=== PATIENT | female | born 1945 | race Caucasian/White ===

== ENCOUNTER 2019-04-08 13:16 | Outpatient (RCR) | payer MEDICARE, SELFPAY ==
[2019-01-25 11:08] LABS: Hematocrit 35.2 % (37.0-47.0); Hemoglobin 11.8 g/dL (12.0-15.0); Mean Corpuscular HGB Conc 33.5 g/dl (32-36); Mean Corpuscular Hemoglobin 35.6 pg (26-34); Mean Corpuscular Volume 106.3 fl (80-100); Mean Platelet Volume 9.9 fl (7.4-10.4); Platelet Count Result 59 k/mm3 (150-375); Red Blood Count 3.31 M/mm3 (4.2-5.4); Red Cell Distribution Width 14.8 % (11.5-14.5); White Blood Count 2.9 K/mm3 (4.5-10.0)
[2019-01-25 11:26] LABS: Alanine Aminotransferase 16 U/L (4-35); Albumin Level 4.4 g/dL (3.5-5.1); Alkaline Phosphatase 86 U/L (38-126); Aspartate Amino Transferase 24 U/L (14-36); Bilirubin,Total 0.4 mg/dL (0.2-1.3); Blood Urea Nitrogen 17 mg/dL (7-17); Calcium 9.5 mg/dL (8.4-10.2); Carbon Dioxide 27 mmol/L (22-30); Chloride 103 mmol/L (98-107); Estimated Glomerular Filt Rate > 60; Glucose 83 mg/dL (65-105); Lactate Dehydrogenase 516 U/L (313-618); Potassium 4.2 mmol/L (3.4-5.0); Sodium 138 mmol/L (137-145)
[2019-04-08 13:51] LABS: Basophils Percent Auto 0.5 % (0.2-1.2); Eosinophils Percent Auto 0.5 % (0-4.4); Hematocrit 31.8 % (37.0-47.0); Hemoglobin 10.6 g/dL (12.0-15.0); Immature Granulocyte Absolute 0.01 K/mm3 (0.00-0.031); Immature Granulocyte Percent A 0.3 % (0-0.5); Lymphocytes Absolute Auto 0.92 K/mm3 (0.9-3.2); Lymphocytes Percent Auto 23.1 % (18.3-44.2); Mean Corpuscular HGB Conc 33.3 g/dl (32-36); Mean Corpuscular Hemoglobin 34.6 pg (26-34); Mean Corpuscular Volume 103.9 fl (80-100); Mean Platelet Volume 10.2 fl (7.4-10.4); Monocytes Absolute Auto 0.3 K/mm3 (0.1-0.6); Monocytes Percent Auto 8.3 % (2.6-8.5); Neutrophils Absolute Auto 2.7 K/mm3 (1.3-6.7); Neutrophils Percent Auto 67.3 % (45.5-73.1); Platelet Count Result 70 k/mm3 (150-375); Red Blood Count 3.06 M/mm3 (4.2-5.4); Red Cell Distribution Width 14.6 % (11.5-14.5)
[2019-04-08 14:02] LABS: Alanine Aminotransferase 14 U/L (4-35); Albumin Level 4.2 g/dL (3.5-5.1); Alkaline Phosphatase 83 U/L (38-126); Aspartate Amino Transferase 20 U/L (14-36); Bilirubin,Total 0.4 mg/dL (0.2-1.3); Blood Urea Nitrogen 16 mg/dL (7-17); Calcium 9.5 mg/dL (8.4-10.2); Carbon Dioxide 30 mmol/L (22-30); Chloride 96 mmol/L (98-107); Estimated Glomerular Filt Rate > 60; Glucose 75 mg/dL (65-105); Lactate Dehydrogenase 442 U/L (313-618); Potassium 3.8 mmol/L (3.4-5.0); Sodium 133 mmol/L (137-145)
== END 2019-04-25 23:59 | disposition home or self-care (01) ==
LOC: ANHLAB 13:16
PROVIDERS: PCP Family Medicine
DX: C92.10 Chronic myeloid leukemia, BCR/ABL-positive, not having achieved remission (principal)
CPT/HCPCS: 36415; 80053; 83615; 85025; 85027

== ENCOUNTER 2019-10-01 10:26 | Outpatient (CLI) | payer MEDICARE, SELFPAY ==
--- NOTE | ~2019-10-01 | US_ITS ---
EXAMINATION: US carotid duplex BI DATE: 10/01/2019 11:26 INDICATION: Carotid bruit TECHNIQUE: Grayscale, color Doppler, and pulsed Doppler images of the cervical carotid arteries were obtained. The degree of vessel stenosis is placed in one of the following categories: normal, <50%, 5 0-69%, >=70% but less than near-occlusion, near-occlusion, or total occlusion. Note that percent sten osis relative to normal distal artery lumen diameter is indirectly measured from velocity measurement s as described by Chaparro, et al. Radiology 2003; 229:340-346. Notes: Normal: Peak systolic velocity <125 centimeters/sec and no plaque <50%. Peak systolic velocity <125 ( EDV <40; ICA/CCA PSV ratio <2.0; used these factors only a tandem lesions or low cardiac output or co ntralateral disease) 50-69 %: PSV 125-230 (EDV 40-100; ratio 2-4) >= 70% but less than near occlusion: PSV greater than 230 (EDV > 100; ratio> 4.0) Near Occlusion: PSV that is variable; markedly narrowed lumen Occlusion: Absent flow on color/spectral Doppler and no lumen on dixon scale. COMPARISON: None. FINDINGS: RIGHT: The right common carotid artery (CCA) peak systolic velocity (PSV) is 106 cm/s. The right internal ca rotid artery (ICA) PSV is 138 cm/s. The right ICA end-diastolic velocity (EDV) is 33 cm/s. The right ICA/CCA PSV ratio is 1.3. The external carotid artery (ECA) PSV is 68 cm/s. There is antegrade flow i n the right vertebral artery. LEFT: The left CCA PSV is 97 cm/s. The left ICA PSV is 132 cm/s. The left ICA EDV is 41 cm/s. The left ICA/ CCA PSV ratio is 1.4. The ECA PSV is 65 cm/s. There is antegrade flow in the left vertebral artery. IMPRESSION: 1. 50-69% stenosis in the right internal carotid artery by sonographic criteria. 2. 50-69% stenosis in the left internal carotid artery by sonographic criteria. Reviewed, dictated and finalized at location B. IMPRESSION: 1. 50-69% stenosis in the right internal carotid artery by sonographic criteria . 2. 50-69% stenosis in the left internal carotid artery by sonographic criteria.
[2019-10-01 12:05] LABS: Basophils Percent Auto 0.5 % (0.2-1.2); Eosinophils Absolute Auto 0.1 K/mm3 (0-0.3); Hematocrit 32.2 % (37.0-47.0); Hemoglobin 10.8 g/dL (12.0-15.0); Immature Granulocyte Absolute 0.01 K/mm3 (0.00-0.031); Immature Granulocyte Percent A 0.2 % (0-0.5); Lymphocytes Absolute Auto 1.64 K/mm3 (0.9-3.2); Lymphocytes Percent Auto 38.2 % (18.3-44.2); Mean Corpuscular HGB Conc 33.5 g/dl (32-36); Mean Corpuscular Volume 104.2 fl (80-100); Mean Platelet Volume 9.5 fl (7.4-10.4); Monocytes Absolute Auto 0.5 K/mm3 (0.1-0.6); Neutrophils Percent Auto 47.1 % (45.5-73.1); Platelet Count Result 90 k/mm3 (150-375); Red Blood Count 3.09 M/mm3 (4.2-5.4); Red Cell Distribution Width 14.2 % (11.5-14.5); White Blood Count 4.3 K/mm3 (4.5-10.0)
[2019-10-01 12:18] LABS: Alanine Aminotransferase 12 U/L (4-35); Albumin Level 4.5 g/dL (3.5-5.1); Alkaline Phosphatase 97 U/L (38-126); Aspartate Amino Transferase 23 U/L (14-36); Bilirubin,Total 0.4 mg/dL (0.2-1.3); Blood Urea Nitrogen 22 mg/dL (7-17); Calcium 9.2 mg/dL (8.4-10.2); Carbon Dioxide 27 mmol/L (22-30); Chloride 103 mmol/L (98-107); Cholesterol 202 mg/dL (0-200); Estimated Glomerular Filt Rate 54; Glucose 87 mg/dL (65-105); HDL Direct 42 mg/dL; Magnesium 2.3 mg/dL (1.6-2.3); Potassium 4.3 mmol/L (3.4-5.0); Sodium 138 mmol/L (137-145); Triglycerides 111 mg/dL (<150)
[2019-10-01 12:29] LABS: LDL Cholesterol Direct 113 mg/dL
[2019-10-01 12:51] LABS: Vitamin D 25 Hydroxy 54.4 ng/mL
== END 2019-10-01 10:27 | disposition home or self-care (01) ==
PROVIDERS: PCP Family Medicine; Visit Provider Internal Medicine Cardiovascular Disease
DX: M85.89 Other specified disorders of bone density and structure, multiple sites (principal); R53.83 Other fatigue; I10 Essential (primary) hypertension; Z13.9 Encounter for screening, unspecified; Z13.820 Encounter for screening for osteoporosis; Z13.6 Encounter for screening for cardiovascular disorders; Z79.899 Other long term (current) drug therapy; Z13.29 Encounter for screening for other suspected endocrine disorder; R09.89 Other specified symptoms and signs involving the circulatory and respiratory systems; I65.23 Occlusion and stenosis of bilateral carotid arteries
CPT/HCPCS: 36415; 80053; 80061; 82306; 82607; 83735; 84443; 85025; 93880

== ENCOUNTER 2019-10-14 07:54 | Outpatient (CLI) | payer MEDICARE, SELFPAY ==
--- NOTE | 2019-10-14 09:45 | EST_ITS ---
Patient Info Name: Anisa Rivera Age: 74 years : 1945 Gender: Female Ht: 60 in Wt: 135 lbs BSA: 1.63 m2 HR: 60 bpm BP: 131 / 80 mmHg Heart Rhythm: Sinus Arrhythmia, Sinus Rhythm Technical Quality: Excellent Exam Date: 10/14/2019 9:19 AM Exam Location: [facility] Patient Status: Outpatient Admit Date: 10/14/2019 Staff Ordering Physician: Jacob Mckenna MD Attending Provider: Jacob Mckenna MD Exercise Technologist: Sherley Hill CRT Exercise Physician: Jocelynn Caban CEP Exam Type: CA stress alvaro w NM Study Info Indications Chemo - LVH - HTN - CHAPIN - A nuclear stress test was performed. History/Risk Factors Hypertension: Yes History/Risk Factors HTN,CHAPIN,Chemo, LVH. Summary 1. 1. Negative Lexiscan stress test for ischemic ST changes by ECG criteria. 2. 2. Stable hemodynamics throughout the test. 3. 3. Nuclear scan to follow and will be reported separately. Please correlate with it. Protocol: LEXISCAN Stress ECG Details Stage: REST Duration (min): 2 min : 9 sec HR (bpm): 59 SBP (mmHg): 131 DBP (mmHg): 80 Stage: REST Duration (min): 6 min : 19 sec HR (bpm): 55 SBP (mmHg): 131 DBP (mmHg): 80 Stage: STAGE 1 Duration (min): 0 min : 13 sec HR (bpm): 54 SBP (mmHg): 131 DBP (mmHg): 80 Stage: RECOVERY Duration (min): 0 min : 46 sec HR (bpm): 84 SBP (mmHg): 131 DBP (mmHg): 80 Stage: RECOVERY Duration (min): 1 min : 46 sec HR (bpm): 82 SBP (mmHg): 100 DBP (mmHg): 65 Stage: RECOVERY Duration (min): 2 min : 46 sec HR (bpm): 82 SBP (mmHg): 101 DBP (mmHg): 65 Stage: RECOVERY Duration (min): 3 min : 46 sec HR (bpm): 81 SBP (mmHg): 94 DBP (mmHg): 65 Stage: RECOVERY Duration (min): 4 min : 46 sec HR (bpm): 78 SBP (mmHg): 94 DBP (mmHg): 65 Stage: RECOVERY Duration (min): 5 min : 46 sec HR (bpm): 77 SBP (mmHg): 94 DBP (mmHg): 65 Stage: RECOVERY Duration (min): 6 min : 46 sec HR (bpm): 77 SBP (mmHg): 94 DBP (mmHg): 65 Stage: RECOVERY Duration (min): 7 min : 8 sec HR (bpm): 75 SBP (mmHg): 94 DBP (mmHg): 65 Rest HR: 55 bpm Peak HR: 84 bpm Rest Sys BP: 131 mmHg Peak Sys BP: 101 mmHg Max Pred HR: 144 bpm % Max Pred HR: 58 % Target HR: 122 bpm Max RPP: 8,484 bpm*mmHg Target HR Summary: Pt. reached 68% of THR at 84bpm BP Response: Patient exhibited a hypotensive response with stress Termination Reason: Completion of Protocol Cardiac Symptoms: Dyspnea Total Time: 0 min : 13 sec Rest Ramos BP: 80 mmHg Peak Ramos BP: 65 mmHg Total Dose: 0.4 mg Resting ECG Normal sinus rhythm with borderline ST abnormality in inferior leads. Stress ECG Borderline ST abnormality in inf/lat leads. Arrhythmias No arrhythmias were observed during the examination. Report Signatures
== END 2019-10-14 07:55 | disposition home or self-care (01) ==
PROVIDERS: PCP Family Medicine; Visit Provider Internal Medicine Cardiovascular Disease
DX: I51.7 Cardiomegaly (principal); I10 Essential (primary) hypertension; R06.00 Dyspnea, unspecified
CPT/HCPCS: 78452; 93017; A9502; J2785

== ENCOUNTER 2020-01-14 09:55 | Outpatient (CLI) | payer MEDICARE, SELFPAY ==
[2020-01-14 10:56] LABS: Basophils Percent Auto 0.4 % (0.2-1.2); Eosinophils Absolute Auto 0.2 K/mm3 (0-0.3); Eosinophils Percent Auto 3.6 % (0-4.4); Hematocrit 35.9 % (37.0-47.0); Immature Granulocyte Absolute 0.01 K/mm3 (0.00-0.031); Immature Granulocyte Percent A 0.2 % (0-0.5); Lymphocytes Percent Auto 31.6 % (18.3-44.2); Mean Corpuscular HGB Conc 33.4 g/dl (32-36); Mean Corpuscular Hemoglobin 34.5 pg (26-34); Mean Corpuscular Volume 103.2 fl (80-100); Mean Platelet Volume 9.1 fl (7.4-10.4); Monocytes Absolute Auto 0.5 K/mm3 (0.1-0.6); Monocytes Percent Auto 9.5 % (2.6-8.5); Neutrophils Absolute Auto 2.8 K/mm3 (1.3-6.7); Neutrophils Percent Auto 54.7 % (45.5-73.1); Platelet Count Result 107 k/mm3 (150-375); Red Blood Count 3.48 M/mm3 (4.2-5.4); Red Cell Distribution Width 14.6 % (11.5-14.5); White Blood Count 5.1 K/mm3 (4.5-10.0)
[2020-01-14 11:01] LABS: Alanine Aminotransferase 14 U/L (4-35); Albumin Level 4.3 g/dL (3.5-5.1); Alkaline Phosphatase 86 U/L (38-126); Anion Gap 9 mmol/L (8-16); Aspartate Amino Transferase 25 U/L (14-36); Bilirubin,Total 0.5 mg/dL (0.2-1.3); Blood Urea Nitrogen 29 mg/dL (7-17); Calcium 9.8 mg/dL (8.4-10.2); Carbon Dioxide 30 mmol/L (22-30); Chloride 101 mmol/L (98-107); Cholesterol 247 mg/dL (0-200); Estimated Glomerular Filt Rate 48; Glucose 96 mg/dL (65-105); HDL Direct 44 mg/dL; Magnesium 2.2 mg/dL (1.6-2.3); Potassium 4.6 mmol/L (3.4-5.0); Sodium 140 mmol/L (137-145); Triglycerides 173 mg/dL (<150)
[2020-01-14 11:12] LABS: LDL Cholesterol Direct 146 mg/dL
[2020-01-14 11:46] LABS: Free T4 Free Thyroxine 0.87 ng/mL (0.78-2.19); Vitamin D 25 Hydroxy 56.8 ng/mL
== END 2020-01-14 09:56 | disposition home or self-care (01) ==
PROVIDERS: PCP Family Medicine; Visit Provider Family Medicine
DX: F41.9 Anxiety disorder, unspecified (principal); R53.83 Other fatigue; Z13.6 Encounter for screening for cardiovascular disorders; Z13.1 Encounter for screening for diabetes mellitus; M85.80 Other specified disorders of bone density and structure, unspecified site; C95.90 Leukemia, unspecified not having achieved remission
CPT/HCPCS: 36415; 80053; 80061; 82306; 82607; 83735; 84439; 84443; 85025

== ENCOUNTER 2020-05-28 08:40 | Outpatient (CLI) | payer MEDICARE, SELFPAY ==
[2020-05-28 09:26] LABS: Alanine Aminotransferase 15 U/L (4-35); Aspartate Amino Transferase 30 U/L (14-36); Cholesterol 148 mg/dL (0-200); HDL Direct 48 mg/dL; Triglycerides 88 mg/dL (<150)
[2020-05-28 09:36] LABS: LDL Cholesterol Direct 72 mg/dL
== END 2020-05-28 08:41 | disposition home or self-care (01) ==
PROVIDERS: PCP Nurse Practitioner Family; Visit Provider Internal Medicine Cardiovascular Disease
DX: I65.23 Occlusion and stenosis of bilateral carotid arteries (principal)
CPT/HCPCS: 36415; 80061; 84450; 84460

== ENCOUNTER 2020-09-15 13:47 | Outpatient (CLI) | payer MEDICARE, SELFPAY ==
--- NOTE | ~2020-09-15 | US_ITS ---
EXAMINATION: US carotid duplex BI DATE: 09/15/2020 14:44 INDICATION: Bilateral carotid artery stenosis. TECHNIQUE: Grayscale, color Doppler, and pulsed Doppler images of the cervical carotid arteries were obtained. The degree of vessel stenosis is placed in one of the following categories: normal, <50%, 5 0-69%, >=70% but less than near-occlusion, near-occlusion, or total occlusion. Note that percent sten osis relative to normal distal artery lumen diameter is indirectly measured from velocity measurement s as described by Chaparro, et al. Radiology 2003; 229:340-346. COMPARISON: Ultrasound 10/01/2019 FINDINGS: RIGHT: The right common carotid artery (CCA) peak systolic velocity (PSV) is 82 cm/s. The right internal car otid artery (ICA) PSV is 97 cm/s. The right ICA end-diastolic velocity (EDV) is 28 cm/s. The right IC A/CCA PSV ratio is 1.2. Grayscale and color Doppler images yield an estimate of <50% diameter reducti on from plaque in the ICA. There is antegrade flow in the right vertebral artery. LEFT: The left CCA PSV is 74 cm/s. The left ICA PSV is 105 cm/s. The left ICA EDV is 35 cm/s. The left ICA/ CCA PSV ratio is 1.4. Grayscale and color Doppler images yield an estimate of <50% diameter reduction from plaque in the ICA. There is antegrade flow in the left vertebral artery. IMPRESSION: 1. <50% stenosis in the right internal carotid artery. 2. <50% stenosis in the left internal carotid artery. Reviewed, dictated and finalized at location A.
== END 2020-09-15 13:48 | disposition home or self-care (01) ==
LOC: ANHIMG 13:49
PROVIDERS: PCP Nurse Practitioner Family; Visit Provider Internal Medicine Cardiovascular Disease
DX: I65.23 Occlusion and stenosis of bilateral carotid arteries (principal)
CPT/HCPCS: 93880

== ENCOUNTER 2020-12-04 09:13 | Outpatient (CLI) | payer MEDICARE, SELFPAY ==
[2020-12-04 10:19] LABS: Alanine Aminotransferase 15 U/L (4-35); Alkaline Phosphatase 88 U/L (38-126); Anion Gap 6 mmol/L (8-16); Aspartate Amino Transferase 21 U/L (14-36); Bilirubin,Total 0.7 mg/dL (0.2-1.3); Blood Urea Nitrogen 18 mg/dL (7-17); Calcium 9.3 mg/dL (8.4-10.2); Carbon Dioxide 29 mmol/L (22-30); Chloride 103 mmol/L (98-107); Cholesterol 141 mg/dL (0-200); Estimated Glomerular Filt Rate 54; Glucose 93 mg/dL (65-110); HDL Direct 44 mg/dL; Potassium 4.4 mmol/L (3.4-5.0); Sodium 138 mmol/L (137-145); Triglycerides 132 mg/dL (<150)
[2020-12-04 10:30] LABS: LDL Cholesterol Direct 64 mg/dL
== END 2020-12-04 09:14 | disposition home or self-care (01) ==
LOC: ANHLAB 09:18
PROVIDERS: PCP Family Medicine; Visit Provider Family Medicine
DX: E78.2 Mixed hyperlipidemia (principal); I10 Essential (primary) hypertension
CPT/HCPCS: 36415; 80053; 80061

== ENCOUNTER 2021-07-10 14:07 | Outpatient (CLI) | payer MEDICARE, SELFPAY ==
--- NOTE | ~2021-07-10 | MR_ITS ---
EXAMINATION: MR brain/brain stem wo con DATE: 07/10/2021 14:48 INDICATION: Paresthesias of left arm and leg. TECHNIQUE: Magnetic resonance imaging (MRI) of the brain and brainstem was performed without intraven ous contrast. COMPARISON: Head CT 09/23/2011 FINDINGS: There are scattered areas of nonspecific increased T2-weighted signal intensity in the cere bral white matter and yue. There is no intracranial hemorrhage, acute infarction, or abnormal intrac ranial mass lesion. The ventricles are normal in size. There are likely changes of ocular lens replac ement surgeries. The paranasal sinuses are clear. The mastoid air cells are normal. IMPRESSION: 1. Moderate nonspecific cerebral white matter disease and pontine disease, which likely represents ch ronic small vessel ischemic disease. Reviewed, dictated and finalized at location A. IMPRESSION: 1. Moderate nonspecific cerebral white matter disease and pontine disease, whic h likely represents chronic small vessel ischemic disease.
== END 2021-07-10 14:08 | disposition home or self-care (01) ==
LOC: ANHIMG 14:10
PROVIDERS: PCP Family Medicine; Visit Provider Family Medicine
DX: R20.2 Paresthesia of skin (principal); R93.0 Abnormal findings on diagnostic imaging of skull and head, not elsewhere classified
CPT/HCPCS: 70551

== ENCOUNTER 2021-08-10 12:38 | Outpatient (CLI) | payer MEDICARE, SELFPAY ==
[2021-08-10 13:22] LABS: Anion Gap 5 mmol/L (8-16); Blood Urea Nitrogen 16 mg/dL (7-17); Calcium 8.9 mg/dL (8.4-10.2); Carbon Dioxide 29 mmol/L (22-30); Chloride 103 mmol/L (98-107); Estimated Glomerular Filt Rate > 60; Glucose 86 mg/dL (65-110); Potassium 4.6 mmol/L (3.4-5.0); Sodium 137 mmol/L (137-145)
== END 2021-08-10 12:39 | disposition home or self-care (01) ==
PROVIDERS: PCP Family Medicine; Visit Provider Internal Medicine Cardiovascular Disease
DX: E87.5 Hyperkalemia (principal)
CPT/HCPCS: 36415; 80048

== ENCOUNTER 2021-12-13 12:37 | Outpatient (RCR) | payer MEDICARE, SELFPAY ==
[2021-10-15 13:20] LABS: Hematocrit 37.2 % (37.0-47.0); Hemoglobin 12.1 g/dL (12.0-15.0); Mean Corpuscular HGB Conc 32.5 g/dl (32-36); Mean Corpuscular Volume 101.4 fl (80-100); Mean Platelet Volume 8.5 fl (7.4-10.4); Platelet Count Result 115 k/mm3 (150-375); Red Blood Count 3.67 M/mm3 (4.2-5.4); Red Cell Distribution Width 14.6 % (11.5-14.5); White Blood Count 5.2 K/mm3 (4.5-10.0)
[2021-10-15 13:30] LABS: Alanine Aminotransferase 17 U/L (6-35); Alkaline Phosphatase 82 U/L (38-126); Anion Gap 7 mmol/L (8-16); Aspartate Amino Transferase 23 U/L (14-36); Bilirubin,Total 0.3 mg/dL (0.2-1.3); Blood Urea Nitrogen 16 mg/dL (7-17); Calcium 9.2 mg/dL (8.4-10.2); Carbon Dioxide 29 mmol/L (22-30); Chloride 104 mmol/L (98-107); Estimated Glomerular Filt Rate 54; Glucose 83 mg/dL (65-110); Lactate Dehydrogenase 422 U/L (313-618); Potassium 4.3 mmol/L (3.4-5.0); Sodium 140 mmol/L (137-145)
[2021-12-13 12:55] LABS: Hematocrit 39.4 % (37.0-47.0); Hemoglobin 12.7 g/dL (12.0-15.0); Mean Corpuscular HGB Conc 32.2 g/dl (32-36); Mean Corpuscular Hemoglobin 32.8 pg (26-34); Mean Corpuscular Volume 101.8 fl (80-100); Mean Platelet Volume 8.6 fl (7.4-10.4); Platelet Count Result 131 k/mm3 (150-375); Red Blood Count 3.87 M/mm3 (4.2-5.4); Red Cell Distribution Width 14.1 % (11.5-14.5); White Blood Count 6.2 K/mm3 (4.5-10.0)
[2021-12-13 13:06] LABS: Alanine Aminotransferase 27 U/L (6-35); Albumin Level 4.3 g/dL (3.5-5.1); Alkaline Phosphatase 95 U/L (38-126); Anion Gap 8 mmol/L (8-16); Aspartate Amino Transferase 29 U/L (14-36); Bilirubin,Total 0.4 mg/dL (0.2-1.3); Blood Urea Nitrogen 17 mg/dL (7-17); Calcium 9.1 mg/dL (8.4-10.2); Carbon Dioxide 28 mmol/L (22-30); Chloride 105 mmol/L (98-107); Estimated Glomerular Filt Rate 48; Glucose 82 mg/dL (65-110); Lactate Dehydrogenase 175 U/L (120-246); Potassium 4.3 mmol/L (3.4-5.0); Sodium 141 mmol/L (137-145)
== END 2022-01-13 23:59 | disposition home or self-care (01) ==
LOC: ANHLAB 12:37
PROVIDERS: PCP Family Medicine
DX: C92.10 Chronic myeloid leukemia, BCR/ABL-positive, not having achieved remission (principal)
CPT/HCPCS: 36415; 80053; 83615; 85027

== ENCOUNTER 2022-01-17 11:57 | Outpatient (RCR) | payer MEDICARE, SELFPAY ==
[2022-01-17 12:35] LABS: Hematocrit 39.3 % (37.0-47.0); Hemoglobin 12.9 g/dL (12.0-15.0); Mean Corpuscular HGB Conc 32.8 g/dl (32-36); Mean Corpuscular Hemoglobin 33.2 pg (26-34); Mean Platelet Volume 8.5 fl (7.4-10.4); Platelet Count Result 136 k/mm3 (150-375); Red Blood Count 3.89 M/mm3 (4.2-5.4); White Blood Count 5.4 K/mm3 (4.5-10.0)
[2022-01-17 12:45] LABS: Alanine Aminotransferase 27 U/L (6-35); Albumin Level 4.4 g/dL (3.5-5.1); Alkaline Phosphatase 106 U/L (38-126); Anion Gap 9 mmol/L (8-16); Aspartate Amino Transferase 32 U/L (14-36); Bilirubin,Total 0.6 mg/dL (0.2-1.3); Blood Urea Nitrogen 15 mg/dL (7-17); Calcium 9.3 mg/dL (8.4-10.2); Carbon Dioxide 29 mmol/L (22-30); Chloride 103 mmol/L (98-107); Estimated Glomerular Filt Rate 48; Glucose 92 mg/dL (65-110); Lactate Dehydrogenase 189 U/L (120-246); Potassium 4.9 mmol/L (3.4-5.0); Sodium 141 mmol/L (137-145)
== END 2022-04-17 23:59 | disposition home or self-care (01) ==
LOC: ANHLAB 11:57
PROVIDERS: PCP Family Medicine
DX: C92.10 Chronic myeloid leukemia, BCR/ABL-positive, not having achieved remission (principal)
CPT/HCPCS: 36415; 80053; 83615; 85027

== ENCOUNTER 2022-04-22 13:28 | Outpatient (RCR) | payer MEDICARE, SELFPAY ==
[2022-04-22 14:30] LABS: Hematocrit 39.8 % (37.0-47.0); Hemoglobin 13.2 g/dL (12.0-15.0); Mean Corpuscular HGB Conc 33.2 g/dl (32-36); Mean Corpuscular Hemoglobin 33.2 pg (26-34); Mean Platelet Volume 8.8 fl (7.4-10.4); Platelet Count Result 148 k/mm3 (150-375); Red Blood Count 3.98 M/mm3 (4.2-5.4)
[2022-04-22 15:01] LABS: Alanine Aminotransferase 19 U/L (6-35); Alkaline Phosphatase 99 U/L (38-126); Anion Gap 5 mmol/L (8-16); Aspartate Amino Transferase 25 U/L (14-36); Bilirubin,Total 0.6 mg/dL (0.2-1.3); Blood Urea Nitrogen 14 mg/dL (7-17); Calcium 8.9 mg/dL (8.4-10.2); Carbon Dioxide 30 mmol/L (22-30); Chloride 105 mmol/L (98-107); Estimated Glomerular Filt Rate 54; Glucose 83 mg/dL (65-110); Lactate Dehydrogenase 183 U/L (120-246); Potassium 4.8 mmol/L (3.4-5.0); Sodium 140 mmol/L (137-145)
== END 2022-07-21 23:59 | disposition home or self-care (01) ==
LOC: ANHLAB 13:28
PROVIDERS: PCP Family Medicine
DX: C92.10 Chronic myeloid leukemia, BCR/ABL-positive, not having achieved remission (principal)
CPT/HCPCS: 36415; 80053; 83615; 85027

== ENCOUNTER 2022-07-17 12:55 | Emergency (ER) | payer MEDICARE, SELFPAY ==
--- NOTE | ~2022-07-17 | XR_ITS ---
EXAMINATION: XR foot RT min 3V DATE: 07/17/2022 13:14 INDICATION: Right foot pain post injury TECHNIQUE: Dorsoplantar, two oblique and lateral views of the right foot were obtained. COMPARISON: None. FINDINGS: Bone alignment is normal. No fracture. Moderate to severe osteoarthritis with prominent hypertrophic osteophytes at the first metatarsophalangeal joint. Mild osteoarthritis at a few tarsal metatarsal an d interphalangeal joints. Moderate-sized plantar calcaneal spur. Minute enthesopathic calcification a t the distal Achilles tendon. Soft tissues are unremarkable. No ankle joint effusion. IMPRESSION: 1. No acute osseous abnormality. 2. 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 Reviewed, dictated and finalized at location A. IMPRESSION: 1. No acute osseous abnormality. 2. 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
[2022-07-17 13:20] VITALS: BP 166/89; PULSE 78; RESP 16; TEMP 36.5; O2SAT 99
--- NOTE | 2022-07-17 13:33 | ED.GENADULT ---
HPI - General Adult General Chief complaint: Extremity Injury, Lower Stated complaint: rt foot injury Time Seen by Provider: 07/17/22 13:33 Source: patient, RN notes reviewed and old records reviewed Mode of arrival: ambulatory Limitations: no limitations History of Present Illness HPI narrative: 77 [facility] of injury to her right foot again yesterday when she was stepping on rocks and curb and felt something move in her bones along 2nd metatarsal region. Patient reports that 2 weeks ago she had injury also when she was trying to help her who has Parkinson disease and he went down on her foot. Patient states that she had bruise on her foot initially after incident but has resolved. Patient has noted sweling to the dorsal aspect of her right foot and small raised area along 2nd metatarsal area of her right foot. Patient reports that she has no tingling or numbness to her right foot, pedal pulse is strong. MD complaint: right foot injury Onset (ago): week(s) (2 weeks ago initial injury yesterday reinjury) Location: right and lower extremity (foot) Severity scale (1-10): 4 Treatments prior to arrival: cold therapy and other (tylenol) Related Data Home Medications Medication Instructions Recorded Confirmed asciminib 40 mg tablet (Scemblix) 40 mg PO DIRECTED 07/17/22 07/17/22 atorvastatin 10 mg tablet 10 mg PO DAILY 07/17/22 07/17/22 clonazepam 0.5 mg tablet 0.5 mg PO HS 07/17/22 07/17/22 lisinopril 20 mg tablet 20 mg PO DAILY 07/17/22 07/17/22 Allergies Allergy/AdvReac Type Severity Reaction Status Date / Time ROSEY Inhibitors Allergy Mild Swelling Verified 07/17/22 13:02 Sulfa (Sulfonamide Allergy Mild Rash Verified 07/17/22 13:02 Antibiotics) sulfanilamide Allergy Mild Rash Verified 07/17/22 13:02 Sulfonamides Allergy Intermediate Rash Uncoded 07/17/22 13:02 Review of Systems Review of Systems: CONSTITUTIONAL: Denies fever, chills, or sweats. EYES: Denies visual changes, redness, or discharge. ENT: Denies rhinorrhea, congestion, sore throat, or otalgia. CARDIOVASCULAR: Denies chest pain, palpitations, or edema. RESPIRATORY: Denies cough or dyspnea. GASTROINTESTINAL: Denies abdominal pain, nausea, vomiting, or diarrhea. GENITOURINARY: Denies dysuria or hematuria. SKIN: Denies rash or itching. MUSCULOSKELETAL: Denies back pain,pain and some swelling to right foot, or myalgia. NEUROLOGIC: Denies headache, numbness, or weakness. PSYCHIATRIC: Denies anxiety or depression. All systems reviewed & are unremarkable except as noted in HPI and below PMFSH Past Medical History Medical History (Updated 07/18/22 @ 22:24 by Anisa Villalobos NP) Anxiety GERD (gastroesophageal reflux disease) Hypertension Thrombocytosis Surgical History Surgical History (Updated 07/18/22 @ 22:17 by Anisa Villalobos NP) H/O breast biopsy History of bladder surgery stamey procedure, bladder suspension Family History Family History (Updated 10/16/15 @ 23:19 by DOCTOR UNKNOWN) Father Family history of coronary artery disease Mother Family history of malignant neoplasm of breast in first degree relative Social History Social History (Updated 07/18/22 @ 22:17 by Anisa Villalobos NP) Smoking status: Former smoker Smoking end date: 03/20/73 Alcohol intake: never Substance use: never Living arrangements: with family Occupation/Education: retired Gender identity (if verbalized by the patient): Female Comments At time of signature, agree with nursing past medical, surgical, social and family history. There is no relevant family history pertinent to the presenting complaint Exam Narrative: GENERAL: Well-appearing, well-nourished, and in no acute distress. HEAD: Normocephalic, atraumatic. EYES: PERRLA and EOMI. ENT: Nares clear, no rhinorrhea or epistaxis. Mucous membranes moist.TM's normal throat pink with no swelling NECK: Supple. CHEST: Clear
== END 2022-07-17 14:00 | disposition home or self-care (01) ==
PROVIDERS: Emergency Provider Registered Nurse; PCP Internal Medicine
DX: M79.671 Pain in right foot (principal); M19.071 Primary osteoarthritis, right ankle and foot; Z87.891 Personal history of nicotine dependence; K21.9 Gastro-esophageal reflux disease without esophagitis; I10 Essential (primary) hypertension; D75.839 Thrombocytosis, unspecified
CPT/HCPCS: 73630; 99213; G0463

== ENCOUNTER 2022-07-30 10:41 | Emergency (ER) | payer MEDICARE, SELFPAY ==
[2022-07-30] VITALS (12 sets, daily range): BP systolic 120–168; BP diastolic 67–90; PULSE 55–71; RESP 11–24; TEMP 36.4–36.6; O2SAT 97–100
--- NOTE | ~2022-07-30 | XR_ITS ---
XR wrist RT min 3V 07/30/2022 11:16 Indication: Right wrist pain with deformity Procedure: 3 views right wrist Comparison: No prior studies for comparison. Findings: There is a comminuted intra-articular fracture distal aspect of the radius with approximate ly one third bone width dorsal displacement and approximately 30 degrees dorsal angulation. No foreig n bodies. There are loose bodies dorsal to the carpal bones, suspicious for triquetral fracture. Impression: 1: Comminuted intra-articular fracture distal aspect of the right radius with dorsal displacement and angulation. 2: Probable triquetral fracture. Reviewed, dictated and finalized at location A. Impression: 1: Comminuted intra-articular fracture distal aspect of the right radius with d orsal displacement and angulation. 2: Probable triquetral fracture.
--- NOTE | ~2022-07-30 | XR_ITS ---
XR wrist RT 2V 07/30/2022 12:14 Indication: Postreduction right wrist Procedure: 2 views right wrist Comparison: 07/30/2022 Findings: Near-anatomic alignment of comminuted intra-articular distal right radial fracture status p ost reduction. There is a triquetral fracture, age indeterminate There is a thin lucency in the scaph oid, suspicious for nondisplaced fracture of the scaphoid. Impression: 1: Near-anatomic alignment of comminuted intra-articular distal radial fracture status post reduction . 2: Probable nondisplaced scaphoid fracture. 3: Triquetral fracture, age indeterminate Reviewed, dictated and finalized at location A. Impression: 1: Near-anatomic alignment of comminuted intra-articular distal radial fracture status post reduction. 2: Probable nondisplaced scaphoid fracture. 3: Triquetral fracture, age indeterminate
--- NOTE | 2022-07-30 10:59 | ED.UPPEXIN ---
HPI - Extremity Injury (Upper) General Chief Complaint: Extremity Injury, Upper <Kimberly Urias PARTS COUNTER ASSOCIATE - Last Filed: 07/30/22 17:26> Stated Complaint: R. wrist injury <Kimberly Urias PARTS COUNTER ASSOCIATE - Last Filed: 07/30/22 17:26> Time Seen by Provider: 07/30/22 10:44 <Kimberly Urias PARTS COUNTER ASSOCIATE - Last Filed: 07/30/22 17:26> History of Present Illness HPI narrative: 77-year-old female presents to the emergency room today for complaints of pain and swelling to the right wrist. She fell down some steps this morning and caught herself with her right hand outstretched. She has swelling and deformity to the right wrist. She denies any numbness or tingling to her fingers. She is able to move her fingers normally. Denies any other injury from the fall. <Kimberly Urias, PARTS COUNTER ASSOCIATE - Last Filed: 07/30/22 17:26> Related Data Home Medications: Home Medications Medication Instructions Recorded Confirmed asciminib 40 mg tablet (Scemblix) 40 mg PO DIRECTED 07/17/22 07/17/22 atorvastatin 10 mg tablet 10 mg PO DAILY 07/17/22 07/17/22 clonazepam 0.5 mg tablet 0.5 mg PO HS 07/17/22 07/17/22 lisinopril 20 mg tablet 20 mg PO DAILY 07/17/22 07/17/22 <Kimberly Urias, PARTS COUNTER ASSOCIATE - Last Filed: 07/30/22 17:26> Allergies/Adverse Reactions: Allergies Allergy/AdvReac Type Severity Reaction Status Date / Time ROSEY Inhibitors Allergy Mild Swelling Verified 07/17/22 13:02 Sulfa (Sulfonamide Allergy Mild Rash Verified 07/17/22 13:02 Antibiotics) sulfanilamide Allergy Mild Rash Verified 07/17/22 13:02 Sulfonamides Allergy Intermediate Rash Uncoded 07/17/22 13:02 <Kimberly Urias, PARTS COUNTER ASSOCIATE - Last Filed: 07/30/22 17:26> Review of Systems Review of Systems: CONSTITUTIONAL: Denies fever, chills, or sweats. EYES: Denies visual changes, redness, or discharge. ENT: Denies rhinorrhea, congestion, sore throat, or otalgia. CARDIOVASCULAR: Denies chest pain, palpitations, or edema. RESPIRATORY: Denies cough or dyspnea. GASTROINTESTINAL: Denies abdominal pain, nausea, vomiting, or diarrhea. GENITOURINARY: Denies dysuria or hematuria. SKIN: Denies rash or itching. MUSCULOSKELETAL: as per HPI NEUROLOGIC: Denies headache, numbness, dizziness, or weakness. PSYCHIATRIC: Denies anxiety or depression. <Kimberly Urias APRN - Last Filed: 07/30/22 17:26> PMFSH Past Medical History Medical History: Medical History Anxiety GERD (gastroesophageal reflux disease) Hypertension Thrombocytosis <Kimberly Urias APRN - Last Filed: 07/30/22 17:26> Surgical History Surgical History: Surgical History H/O breast biopsy History of bladder surgery stamey procedure, bladder suspension <Kimberly Urias APRN - Last Filed: 07/30/22 17:26> Family History Family History: Family History Father Family history of coronary artery disease Mother Family history of malignant neoplasm of breast in first degree relative <Kimberly Urias APRN - Last Filed: 07/30/22 17:26> Social History Social History: Social History Smoking status: Former smoker Smoking end date: 03/20/73 Alcohol intake: never Substance use: never Living arrangements: with family Occupation/Education: retired Gender identity (if verbalized by the patient): Female <Kimberly Urias APRN - Last Filed: 07/30/22 17:26> Exam Narrative: GENERAL: Well-appearing, well-nourished, and in no acute distress. HEAD: Normocephalic, atraumatic. EYES: PERRL and EOMI. NECK: Supple. No adenopathy or masses. No carotid bruits or JVD CHEST: Clear to auscultation. No respiratory distress. No wheezes rales or rhonchi HEART: Regular rate and rhythm. No murmur heard. Normal peripheral pulses. ABDOMEN: S
[2022-07-30] MEDS: MORPHINE SULFATE (*CRX) 2 MG/ML INJ IV PUSH ×2 (11:10→12:57)
[2022-07-30] MEDS: ONDANSETRON INJ 4 MG/2 ML VIAL IV PUSH (11:10)
[2022-07-30] MEDS: SODIUM CHLORIDE 0.9% IV 1,000 ML 999 ML (11:35)
[2022-07-30] MEDS: PROPOFOL IV EMULSION 200 MG/20 ML VIAL 60 MG IV PUSH (12:04)
--- NOTE | 2022-08-23 13:34 | PC.NURSE ---
LATE ENTRY This note is being entered to document information to the patient's record. The following information was omitted on [July 30, 2022], by [Ana Street]. Pt was observed for 30 min after administration of proprofol. EVERARDO score at 10. vital signs remain stable pt alert and oriented x4.
== END 2022-07-30 13:50 | disposition home or self-care (01) ==
PROVIDERS: Emergency Provider Nurse Practitioner Family; PCP Internal Medicine
DX: S52.501A Unspecified fracture of the lower end of right radius, initial encounter for closed fracture (principal); S62.001A Unspecified fracture of navicular [scaphoid] bone of right wrist, initial encounter for closed fracture; I10 Essential (primary) hypertension; W10.9XXA Fall (on) (from) unspecified stairs and steps, initial encounter; Z87.891 Personal history of nicotine dependence
CPT/HCPCS: 25600; 73100; 73110; 96374; 96375; 99285; A4565; J2270; J2405; J2704; J7030

== ENCOUNTER 2022-08-02 12:21 | Outpatient (CLI) | payer MEDICARE, SELFPAY ==
--- NOTE | 2022-08-02 12:37 | ECG_ITS ---
Measurements Intervals [place] Rate: 70 P: 60 [place]: 151 QRS: 50 QRSD: 89 T: 56 QT: 385 QTc: 418 Interpretive Statements SINUS RHYTHM POSSIBLE LEFT ATRIAL ENLARGEMENT POOR R WAVE PROGRESSION, ANTERIOR LEADS BASELINE ARTIFACT- I, III, AVR, AVL, AVF, V3-V6 BORDERLINE ECG NO PREVIOUS ECG AVAILABLE FOR COMPARISON Electronically Signed On 08-02-2022 13:13:14 CDT by Tom Flores D.O.
== END 2022-08-02 12:22 | disposition home or self-care (01) ==
PROVIDERS: PCP Internal Medicine; Visit Provider Orthopaedic Surgery
DX: I10 Essential (primary) hypertension (principal); Z01.818 Encounter for other preprocedural examination
CPT/HCPCS: 93005

== ENCOUNTER 2022-08-04 00:58 | Day surgery (SDC) | payer MEDICARE, SELFPAY ==
[2022-08-01 14:48] VITALS: BMI 25.0
--- NOTE | 2022-08-01 15:16 | PC.NURSE ---
Report to the Outpatient Waiting Room, entrance under the green pavilion located off [facility], at time __8:30AM on date _08/04/22 . Planned Procedure Time: __10:30AM . Time changes happen often and if your time is changed the preop area will call you the afternoon before. - You and your visitor will be asked to self-screen and do not enter if you have any COVID symptoms. - A mask is optional within the hospital at this time. Patients may have clear liquids (water, carbonated beverages, clear teas, apple juice) until 3 hours prior to surgery with a maximum of 20 ounces. - No food from midnight until time of surgery Take the following medications with a SIP of water the morning of surgery: HYDROCODONE NEEDED DO NOT STOP ANY OF YOUR OTHER PRESCRIPTION MEDICATIONS PRIOR TO SURGERY ?EXCEPT THE FOLLOWING Medications to discontinue per physician __HOLD ALL VITAMINS/SUPPLEMENT FOR 3 DAYS PRE-OP STARTING TODAY Date to take last dose___07/31/22 Please no make-up, nail telugu, hairspray, perfume, deodorant, or body powder the day of surgery. No jewelry (including any body piercings) or valuables the day of surgery, leave them at home. Please take a shower or bath the night before, or the morning of, surgery with an antibacterial soap. Wear comfortable, loose fitting clothing. Children are encouraged to wear pajamas. - Jewelry must be removed prior to entering the operating room. Rings and piercings that are not removed may be cut off. - The hospital will not accept responsibility for valuables. - Please leave all valuables, including medications, at home the day of surgery. If you are going home after surgery, a licensed route driver salesperson must drive you home. - NO public transportation without another adult if you receive anesthesia. - We recommend that an adult stay with you for 24 hours following discharge. - We also recommend that you do not drive, make important decision, drink alcoholic beverages, or take any drugs that were not prescribed by your health care provider for at least 24 hours after your discharge time. Follow any additional instructions given to you from your surgeon. If you or anyone in your household have experienced Covid symptoms in the past week, please notify your surgeon or the nurse liaison at the phone number below for possible testing. Telephone instructions given to __PATIENT and asked if any additional questions and then verbalized understanding. Patient advised to call surgeon office or pre surgery nurse liaison [phone] if any additional questions.
--- NOTE | 2022-08-03 13:59 | WPDANESEPPF ---
Anes - Initial Pre Proc Eval Procedure: Operation Date: 08/04/22 08:30 Proposed Procedures p Open Reduction Internal Fixation of Right Wrist Fracture - Gato Morelos MD Date/Time: 08/03/22 13:59 Surgeon: Gato Morelos MD Pre Op Diagnosis: right wrist fracture Patient Data Age: 77 Gender: F Height: 1.52 m Weight: 58 kg Allergies Allergy/AdvReac Type Severity Reaction Status Date / Time Sulfa (Sulfonamide Allergy Mild Rash Verified 08/04/22 07:29 Antibiotics) Home Medications Medication Instructions Recorded Confirmed Type asciminib 40 mg tablet (Scemblix) 80 mg PO DAILY 07/17/22 08/04/22 History atorvastatin 10 mg tablet 10 mg PO DAILY 07/17/22 08/04/22 History clonazepam 0.5 mg tablet 0.5 mg PO HS 07/17/22 08/04/22 History lisinopril 20 mg tablet 20 mg PO BID 07/17/22 08/04/22 History hydrocodone 5 mg-acetaminophen 325 1 tablet PO Q4H PRN pain #14 tabs 07/30/22 08/04/22 Rx mg tablet ascorbate calcium (vitamin C) 500 1,000 mg PO DAILY 08/01/22 08/04/22 History mg capsule aspirin 81 mg tablet,delayed 81 mg PO DAILY 08/01/22 08/04/22 History release cholecalciferol (vitamin D3) 25 25 mcg PO DAILY 08/01/22 08/04/22 History mcg (1,000 unit) capsule Patient hx anesthesia problems: none Family hx anesthesia problems: none Results Review: All pre-operative results and documents have been reviewed as part of the pre-operative evaluation. [facility] Past Medical History Medical History (Updated 08/03/22 @ 14:01 by Balaji Sterling MD) Anxiety CML (chronic myeloid leukemia) GERD (gastroesophageal reflux disease) Hyperlipidemia Hypertension Thrombocytosis Surgical History Surgical History H/O breast biopsy History of bladder surgery stamey procedure, bladder suspension Family History Family History Father Family history of coronary artery disease Mother Family history of malignant neoplasm of breast in first degree relative Social History Social History Smoking packs per day: 0.5 Smoking cigarettes per day: 10.0 Years smoked: 12 Smoking pack-years: 6.00 Smoking status: Former smoker Tobacco type: cigarettes Smoking end date: 09/17/76 Alcohol intake: never Substance use: never Living arrangements: with family Additional living arrangements comments: [facility] Occupation/Education: retired Gender identity (if verbalized by the patient): Female Spiritual care concerns: No Anes - Eval Final PreProcedure Day of Procedure 08/03/22 13:59 Patient weight: normal Heart: regular rate and rhythm Lungs: clear to auscultation and normal air movement Airway: Mallampati scale class II Neurological: alert and oriented Last oral intake: >/= 8 hours ASA classification: III Emergent: no Anesthetic plan: proceed Anesthesia type and monitoring: general GIVS and LMA Results Review: All pre-operative results and documents have been reviewed as part of the pre-operative evaluation. Informed Consent: The patient's anesthetic plan and its attendant risks and benefits were discussed with the patient/family/POA. Questions were solicited and answers provided to the satisfaction of the patient/family/POA.
--- NOTE | 2022-08-03 14:01 | WPDANESPNB ---
Anes - Peripheral Nerve Block Date/Time: 08/03/22 14:01 I have discussed with the patient/family/POA the placement of a peripheral nerve block for post-operative pain management, including associated risks, benefits, complications, and side effects. Alternative methods of post-operative analgesia were detailed. Questions were solicited and answers provided to the satisfaction of the patient/family/POA. Time-Out: A pre-procedural Time-Out was completed immediately before starting the procedure and confirmed: Patient Identification, Site, Procedure, Patient Position and the Availability of Requisite Equipment. Clinical Indications: Acute post-operative pain management requested by the operative surgeon. Nerve Block Insertion Note Anes-nerve block: supraclavicular right Patient position: supine Skin prep: chlorhexidine Needle: 22 gauge, stimulating, insulated echogenic needle. Needle length: 80 mm Technique: ultrasound (in plane) Injectate: bupivacaine 0.25% with epi 5 mcg/ml (20cc) Observations: tolerated well Complications: none Procedure start time:: 810 Procedure end time:: 815
[2022-08-04] VITALS (10 sets, daily range): BP systolic 138–185; BP diastolic 64–91; PULSE 62–80; RESP 12–20; TEMP 36.2–36.9; O2SAT 94–100
--- NOTE | ~2022-08-04 | XR_ITS ---
EXAMINATION: XR surgery orthopedic DATE: 08/04/2022 09:14 INDICATION: Distal right radius fracture. TECHNIQUE: 7 intraoperative fluoroscopic views of right wrist were obtained. I was not present. Fluor oscopy exposure time was 13 seconds. COMPARISON: Right wrist radiographs 08/02/2022 FINDINGS: There is a fracture of distal radius status post open reduction internal fixation with vola r plate and screws. There is 14 degrees dorsal tilt of the distal articular surface. IMPRESSION: 1. Distal radius fracture status post open reduction internal fixation. Reviewed, dictated and finalized at location A.
--- NOTE | ~2022-08-04 | XR_ITS ---
EXAMINATION: XR chest 1V portable DATE: 08/04/2022 07:33 INDICATION: Shortness of breath. TECHNIQUE: A single frontal view of the chest was obtained. COMPARISON: Chest 2 views 07/25/2018 FINDINGS: The chest demonstrates clear lungs without pneumonia, pleural effusion, or pneumothorax. Th e heart size is normal. IMPRESSION: 1. No acute cardiopulmonary disease. Reviewed, dictated and finalized at location A.
--- NOTE | ~2022-08-04 | XR_ITS ---
EXAMINATION: XR tibia fibula RT 2V DATE: 08/04/2022 07:33 INDICATION: Right lower leg injury. TECHNIQUE: 2 views of right tibia and fibula were obtained. COMPARISON: None. FINDINGS: Bone alignment is normal. No fracture. There is mild tricompartmental osteoarthritis of the knee. No knee joint effusion. IMPRESSION: 1. Mild right knee osteoarthritis. Reviewed, dictated and finalized at location A.
--- NOTE | 2022-08-04 06:53 | WPDHPUPDATE1 ---
History and Physical Update Update Date/Time: 08/04/22 06:53 History and Physical has been reviewed, including an updated exam of the patient. There are NO changes in the patient's condition. Risks, benefits, and alternatives have been discussed and questions answered. Patient agrees to proceed with procedure.
[2022-08-04] MEDS: ACETAMINOPHEN 500 MG TABLET 1000 MG PO (07:45)
[2022-08-04] MEDS: LACTATED RINGERS 1,000 ML 30 ML IV CONT (07:45)
[2022-08-04] MEDS: KETOROLAC 15 MG/ML VIAL (*BKC) IV PUSH (07:48)
--- NOTE | 2022-08-04 07:52 | SUR.PREOP ---
0630 PT STATES SHE HAS BEEN HAVING PAIN TO HER CHEST WHEN SITTING UP, OR TWISTING SINCE HER FALL ON MONDAY. ABRASION NOTED TO RIGHT MOY WITH BRUISING, PT STATES SHE OBTAINED THIS WHEN SHE FELL, STATES IT HAD SOME OOZING YESTERDAY. 07 DR MORALES INFORMED OF THE ABOVE.
--- NOTE | 2022-08-04 08:16 | P.OP_ITS ---
Procedure Note - Detailed Date of Procedure 08/04/22 Pre-op Diagnosis right wrist fracture Post-op Diagnosis Same Procedure Performed Open reduction internal fixation right distal radius fracture Including fixation of more than 3 fragments. Surgeon Gato Morelos MD Silviculture Professor 1st fleet assistant Anesthesia General Indications 77-year-old wound fell on right outstretched hand and sustained distal radius fracture. Angulation and displacement of the fracture with intra-articular extension noted. Patient desires operative treatment. Description of Procedure After informed consent the operative extremity was marked in the preoperative holding area. Patient received intravenous antibiotics. Patient taken to the operating room where they underwent general anesthesia. Positioned supine on operating table. Time-out performed confirming the patient, patient's site of surgery and the plan. Right upper extremity prepped and draped in the usual sterile surgical fashion using a ChloraPrep skin solution. Hand and wrist exsanguinated and arm tourniquet inflated to 225 mmHg. Standard volar flexor carpi radialis incision utilized. Fifteen blade knife used to make longitudinal incision. Flexor carpi radialis tendon identified tendon sheath incised in line with skin incision. Tendon retracted to protect the neurovascular elements. Floor of the tendon sheath incised with a 15 blade knife. Flexor pollicis retracted medial. pronator quadratus then divided off the watershed line and reflected ulnarward to expose the distal radius and the fracture. Fracture was then reduced provisionally pinned. Image intensification confirm reduction. Fixation achieved with the distal radius volar plate. This was provisionally pinned into place and confirmed with image intensification. Fixation to the proximal fragment with a 3.5 mm screw. Distal fracture fixation achieved with 2.0 mm locking pegs and 2.0 mm fully threaded locking screws for the radial styloid. Fixation was then completed proximally with the remaining 3.5 mm screws. Final reduction of the fracture, alignment of the wrist joint and placement of the hardware verified with image intensification. Wound thoroughly irrigated with antibiotic solution. Pronator repaired with 3 0 Monocryl interrupted suture. Skin closed with interrupted subcutaneous 000 Monocryl interrupted suture and running 000 Monocryl subcuticular stitch. Local anesthetic with 0.5% Marcaine. Sterile dressing applied. Padded dressing and splint then applied. Tourniquet released and good capillary refill noted in the fingers and thumb. Patient awoke from anesthesia, extubated and taken to the recovery room in stable condition. All sponge and instrument counts correct at the end of case. Implants Biomet volar distal radius locking plate with pegs and screws. Estimated Blood Loss 5 Tourniquet Time 50 Drains No Packing No Pathology None sent Complications None Condition Stable Disposition PACU [facility] Billing Surgery - Charge Forward: Surgery Billing ([id number])
[2022-08-04] MEDS: ceFAZolin 2 GM/D5W 50 ML 2 GM/50 ML BAG IVPB (08:22)
== END 2022-08-04 11:56 | disposition home or self-care (01) ==
PROVIDERS: PCP Internal Medicine; Visit Provider Orthopaedic Surgery
PROC: (CPT 25575; principal; 2022-08-04 08:30)
DX: S52.571A Other intraarticular fracture of lower end of right radius, initial encounter for closed fracture (principal); S62.024A Nondisplaced fracture of middle third of navicular [scaphoid] bone of right wrist, initial encounter for closed fracture; W19.XXXA Unspecified fall, initial encounter; K21.9 Gastro-esophageal reflux disease without esophagitis; I10 Essential (primary) hypertension
CPT/HCPCS: 25609; 71045; 73590; 99199; A9270; C1713; J0690; J1100; J1885; J2370; J2405; J2704; J3010; J7120

== ENCOUNTER 2022-08-12 13:44 | Emergency (ER) | payer MEDICARE, SELFPAY ==
[2022-08-12 13:48] VITALS: BP 148/82; PULSE 80; RESP 18; TEMP 36.6; O2SAT 100
--- NOTE | 2022-08-12 15:04 | ED.LOWEXIN ---
HPI - Extremity Injury (Lower) General Chief Complaint: Extremity Injury, Lower Stated Complaint: r leg redness/swelling Time Seen by Provider: 08/12/22 14:17 History of Present Illness HPI Narrative: Patient is a 77-year-old female who presents ER with redness to her right oswald. Patient recently under went a traumatic fall and injury resulting in a surgery to her right wrist. She had bruising to her right oswald. That area is since started to become more pink and when evaluated by her orthopedic surgeon it was recommended that should become more red she seek additional evaluation. Over the last 2 days the areas become more red and warm and slightly tender. No lymphangitic streaking. No fevers or chills or sweats. Patient concern for possible cellulitis. Related Data Home Medications Medication Instructions Recorded Confirmed asciminib 40 mg tablet (Scemblix) 80 mg PO DAILY 07/17/22 08/10/22 atorvastatin 10 mg tablet 10 mg PO DAILY 07/17/22 08/10/22 clonazepam 0.5 mg tablet 0.5 mg PO HS 07/17/22 08/10/22 lisinopril 20 mg tablet 20 mg PO BID 07/17/22 08/10/22 ascorbate calcium (vitamin C) 500 1,000 mg PO DAILY 08/01/22 08/10/22 mg capsule aspirin 81 mg tablet,delayed 81 mg PO DAILY 08/01/22 08/10/22 release cholecalciferol (vitamin D3) 25 25 mcg PO DAILY 08/01/22 08/10/22 mcg (1,000 unit) capsule Allergies Allergy/AdvReac Type Severity Reaction Status Date / Time Sulfa (Sulfonamide Allergy Mild Rash Verified 08/10/22 11:05 Antibiotics) Review of Systems Review of Systems: All systems reviewed & are unremarkable except as noted in HPI and below Constitutional: Constitutional: Denies chills, Denies fatigue and Denies fever(s) Integumentary/Breasts: Skin/Breast: Denies rash and Denies skin ulcer Comments: Redness and dry skin to right oswald. [facility] Past Medical History Medical History Anxiety CML (chronic myeloid leukemia) GERD (gastroesophageal reflux disease) Hyperlipidemia Hypertension Thrombocytosis Surgical History Surgical History H/O breast biopsy History of bladder surgery stamey procedure, bladder suspension Family History Family History Father Family history of coronary artery disease Mother Family history of malignant neoplasm of breast in first degree relative Social History Social History Smoking packs per day: 0.5 Smoking cigarettes per day: 10.0 Years smoked: 12 Smoking pack-years: 6.00 Smoking status: Former smoker Tobacco type: cigarettes Smoking end date: 09/17/76 Alcohol intake: never Substance use: never Living arrangements: with family Additional [facility] Occupation/Education: retired Gender identity (if verbalized by the patient): Female Spiritual care concerns: No Exam Narrative: GENERAL: Well-appearing, well-nourished, and in no acute distress. HEAD: Normocephalic, atraumatic. EXTREMITIES: Normal range of motion. No edema. SKIN: Warm, dry. Right oswald with old area of bruising but central area 3 cm in diameter that is erythematous and warm. Not particularly tender to touch but represents cellulitis. NEURO: Alert and oriented x3. PSYCH: Normal mood and affect. Course Course Emergency Course: Cellulitis of the oswald. Discussed outpatient treatment. No lymphangitic streaking. [place] appropriate for outpatient management no need for blood draw at this time. Vital Signs Vital signs: Vital Signs Temperature 98 F 08/12/22 13:48 Pulse Rate 80 08/12/22 13:48 Respiratory Rate 18 08/12/22 13:48 Blood Pressure 148/82 H 08/12/22 13:48 Pulse Oximetry 100 08/12/22 13:48 Oxygen Delivery Room Air 08/12/22 13:48 Temperature 98 F 08/12/22 13:48 Pulse Rat
[2022-08-12 15:31] VITALS: BP 136/72; PULSE 84; RESP 18; O2SAT 99
== END 2022-08-12 15:32 | disposition home or self-care (01) ==
PROVIDERS: Emergency Provider Emergency Medicine
DX: L03.115 Cellulitis of right lower limb (principal); C92.10 Chronic myeloid leukemia, BCR/ABL-positive, not having achieved remission; E78.5 Hyperlipidemia, unspecified; I10 Essential (primary) hypertension; Z87.891 Personal history of nicotine dependence; Z79.82 Long term (current) use of aspirin
CPT/HCPCS: 99283

== ENCOUNTER 2023-06-20 14:11 | Outpatient (CLI) | payer MEDICARE, SELFPAY ==
[2023-06-20 15:13] LABS: Anion Gap 8 mmol/L (4-12); Blood Urea Nitrogen 35 mg/dL (7-17); Calcium 9.5 mg/dL (8.4-10.2); Carbon Dioxide 27 mmol/L (22-30); Chloride 100 mmol/L (98-107); Estimated Glomerular Filt Rate 36; Glucose 92 mg/dL (65-110); Potassium 5.3 mmol/L (3.4-5.0); Sodium 135 mmol/L (137-145)
== END 2023-06-20 14:12 | disposition home or self-care (01) ==
PROVIDERS: Visit Provider Internal Medicine Cardiovascular Disease
DX: I10 Essential (primary) hypertension (principal)
CPT/HCPCS: 36415; 80048

== ENCOUNTER 2024-01-20 22:29 | Emergency (ER) | payer MEDICARE, SELFPAY ==
--- NOTE | ~2024-01-20 | XR_ITS ---
EXAMINATION: XR chest 1V portable DATE: 01/21/2024 00:26 INDICATION: Hypertensive urgency TECHNIQUE: frontal view of the chest was obtained. COMPARISON: Chest radiograph dated 08/04/2022 CT dated 06/25/2013 FINDINGS: Hyperexpansion of lungs with flattening of the diaphragms suggestive consistent with emphysema better appreciated on prior CT. No airspace opacities, pulmonary edema, pleural effusion or pneumothorax. T he cardiomediastinal silhouette is normal. Lumbar dextro rotoscoliosis with compensatory levoscoliosi s in the lower thoracic spine and severe thoracolumbar spondylosis. IMPRESSION: 1. Emphysema. No acute cardiopulmonary disease. Reviewed, dictated and finalized at location A. ME TAX ADMINISTRATOR
--- NOTE | ~2024-01-20 | CT_ITS ---
EXAMINATION: CT brain wo con DATE: 01/21/2024 00:35 INDICATION: Headache. Hypertension. TECHNIQUE: Computed tomography (CT) of the head was performed without intravenous contrast. Sagittal and coronal reconstructions were performed. The mA was adjusted according to patient size. Iterative reconstruction technique was employed. The dose-length product was 681.00 mGy-cm. COMPARISON: head CT dated 09/23/2011 and brain MR dated 07/10/2021 FINDINGS: No acute intracranial hemorrhage, acute infarction or abnormal extra axial fluid collection. There is moderate scattered white matter hypoattenuation consistent with chronic small vessel ischemic diseas e. Ventricles are normal and symmetric. No mass/mass effect. Changes of bilateral intraocular lens re placement. The orbits, paranasal sinuses and mastoid air cells are normal. IMPRESSION: 1. Moderate scattered white matter hypoattenuation consistent with chronic small vessel ischemic dise ase. No acute intracranial process. Reviewed, dictated and finalized at location A. CTOR OF MECHANICAL ENGINEERING IMPRESSION: 1. Moderate scattered white matter hypoattenuation consistent with chronic smal l vessel ischemic disease. No acute intracranial process.
[2024-01-20 22:33] VITALS: BP 156/97; PULSE 100; RESP 18; TEMP 36.7; O2SAT 97
[2024-01-21 00:01] VITALS: BP 193/107; PULSE 65; RESP 18; O2SAT 99
--- NOTE | 2024-01-21 00:16 | ECG_ITS ---
Test Date: 2024-01-21 00:27:07 Measurements Intervals [place] Rate: 67 P: 62 PA: 163 QRS: 51 QRSD: 84 T: 68 QT: 386 QTc: 409 Interpretive Statements SINUS RHYTHM WITH OCCASIONAL VENTRICULAR PREMATURE COMPLEXES POSSIBLE LEFT ATRIAL ENLARGEMENT BORDERLINE R WAVE PROGRESSION, ANTERIOR LEADS BORDERLINE ST ABNORMALITY- INFERIOR LEADS BASELINE ARTIFACT- I, III, AVR, AVL BORDERLINE ECG No previous ECG available for comparison Electronically Signed On 01-21-2024 06:15:12 [employer]ISTER by Tom Flores D.O.
--- NOTE | 2024-01-21 00:25 | ED.GENADULT ---
HPI - General Adult General Chief complaint: Headache Stated complaint: high blood pressure, headache Time Seen by Provider: 01/20/24 23:47 History of Present Illness HPI narrative: Patient 78-year-old female who presents emergency department with chief complaint headache. Patient reports she has history of CML patient reports that she also has hypertension takes lisinopril the patient states that she has noticed that her blood pressures been running high and she had a frontal headache vision the patient reports that concerned has had a family member that had a stroke previously. Related Data Home Medications Medication Instructions Recorded Confirmed asciminib 40 mg tablet (Scemblix) 80 mg PO DAILY 07/17/22 09/14/22 atorvastatin 10 mg tablet 10 mg PO DAILY 07/17/22 09/14/22 clonazepam 0.5 mg tablet 0.5 mg PO HS 07/17/22 09/14/22 lisinopril 20 mg tablet 20 mg PO BID 07/17/22 09/14/22 ascorbate calcium (vitamin C) 500 1,000 mg PO DAILY 08/01/22 09/14/22 mg capsule aspirin 81 mg tablet,delayed 81 mg PO DAILY 08/01/22 09/14/22 release cholecalciferol (vitamin D3) 25 25 mcg PO DAILY 08/01/22 09/14/22 mcg (1,000 unit) capsule Allergies Allergy/AdvReac Type Severity Reaction Status Date / Time Sulfa (Sulfonamide Allergy Mild Rash Verified 09/14/22 09:46 Antibiotics) Review of Systems Review of Systems: A 10 system review of systems was completed on the patient and is negative except for what is stated in the HPI. Nursing and ancillary documentation was reviewed. [facility] Past Medical History Medical History Anxiety CML (chronic myeloid leukemia) GERD (gastroesophageal reflux disease) Hyperlipidemia Hypertension Thrombocytosis Surgical History Surgical History H/O breast biopsy History of bladder surgery stamey procedure, bladder suspension Family History Family History Father Family history of coronary artery disease Mother Family history of malignant neoplasm of breast in first degree relative Social History Social History Smoking packs per day: 0.5 Smoking cigarettes per day: 10.0 Years smoked: 12 Smoking pack-years: 6.00 Smoking status: Former smoker Tobacco type: cigarettes Smoking end date: 09/17/76 Alcohol intake: never Substance use: never Living arrangements: with family Additional living arrangements comments: [facility] Occupation/Education: retired Gender identity (if verbalized by the patient): Female Spiritual care concerns: No Exam Narrative: GENERAL: Well-appearing, well-nourished, and in no acute distress. HEAD: Normocephalic, atraumatic. EYES: PERRLA and EOMI. ENT: Nares clear, no rhinorrhea or epistaxis. Mucous membranes moist. NECK: Supple. CHEST: Clear to auscultation. No respiratory distress. HEART: Regular rate and rhythm. No murmur heard. Normal peripheral pulses. ABDOMEN: Soft, nontender, nondistended, normal active bowel sounds. EXTREMITIES: Normal range of motion. No edema. SKIN: Warm, dry, no rash. NEURO: No focal deficits. Alert and oriented x3. PSYCH: Normal mood and affect. Course Vital Signs Vital signs: Vital Signs Temperature 36.7 C 01/20/24 22:33 Pulse Rate 100 01/20/24 22:33 Respiratory Rate 18 01/20/24 22:33 Blood Pressure 156/97 H 01/20/24 22:33 Pulse Oximetry 97 01/20/24 22:33 Oxygen Delivery Room Air 01/20/24 22:33 Temperature 36.7 C 01/20/24 22:33 Pulse Rate 91 01/21/24 01:29 CDT Respiratory Rate 13 01/21/24 01:29 CDT Blood Pressure 152/61 H 01/21/24 01:29 CDT Pulse Oximetry 100 01/21/24 01:29 CDT Oxygen Delivery Room Air 01/20/24 22:33 Medical Decision Making MDM Narrative Medical decision making narrative: Differential diagnosis includes hypertensive urgency, intracranial hemorrhage, electrolyte abnormality, ACS EKG showed no acute ischemic changes Chest x-ray showed no focal findings CT head showed no acute abnormality Electrolytes are within normal limits CBC was within normal limits troponin was negative BNP was 988 Urinalysis showed no evidence of UTI and no evidence of protein in the urine And the patient was given a single dose of additional blood pressure medicine the emergency department reports her headache is doing better at this time Vital Signs Vital Signs: Vital Signs Temperature 36.7 C 01/20/24 22:33 Pulse Rate 100 01/20/24 22:33 Respiratory Rate 18 01/20/24 22:33 Blood Pressure 156/97 H 01/20/24 22:33 Pulse Oximetry 97 01/20/24 22:33 Oxygen Delivery Room Air 01/20/24 22:33 Temperature 36.7 C 01/20/24 22:33 Pulse Rate 91 01/21/24 01:29 CDT Respiratory Rate 13 01/21/24 01:29 CDT Blood Pressure 152/61 H 01/21/24 01:29 CDT Pulse Oximetry 100 01/21/24 01:29 CDT Oxygen Delivery Room Air 01/20/24 22:33 Lab Data 01/21/24 00:19 01/21/24 00:19 Labs: Lab Results 01/21/24 Range/Units 00:19 WBC 6.6 (4.5-10.0) K/mm3 RBC 3.99 L (4.2-5.4) M/mm3 Hgb 13.3 (12.0-15.0) g/dL Hct 39.2 (37.0-47.0) % MCV 98.2 (80-100) fl MCH 33.3 (26-34) pg MCHC 33.9 (32-36) g/dl RDW 14.0 (11.5-14.5) % Plt Count 165 (150-375) k/mm3 MPV 9.4 (7.4-10.4) fl Immature Gran % (Auto) 0.2 (0-0.5) % Neut % (Auto) 52.5 (45.5-73.1) % Lymph % (Auto) 31.0 (18.3-44.2) % Mckean % (Auto) 12.9 H (2.6-8.5) % Eos % (Auto) 2.9 (0-4.4) % Baso % (Auto) 0.5 (0.2-1.2) % Lymph # (Auto) 2.04 (0.9-3.2) K/mm3 Mckean # (Auto) 0.9 H (0.1-0.6) K/mm3 Eos # (Auto) 0.2 (0-0.3) K/mm3 Baso # (Auto) 0.0 (0.0-0.1) K/mm3 Abs Immat Gran (auto) 0.01 (0.00-0.031) K/mm3 Absolute Neuts (auto) 3.5 (1.3-6.7) K/mm3 Absolute Nucleated RBC 0.000 (0.0-0.012) K/mm3 Nucleated RBC % 0.0 (0.0-0.2) % PT 13.1 (11.1-14.7) Seconds INR 1.0 APTT 28.5 (22.3-36.8) Seconds Sodium 137 (137-145) mmol/L Potassium 4.4 (3.4-5.0) mmol/L Chloride 101 (98-107) mmol/L Carbon Dioxide 28 (22-30) mmol/L Anion Gap 8 (4-12) mmol/L BUN 18 H D (7-17) mg/dL Creatinine 1.00 (0.7-1.0) mg/dL Estim Creat Clear Calc 33 ml/min Estimated GFR 53 L (59 - ) Glucose 88 (65-110) mg/dL Calcium 9.3 (8.4-10.2) mg/dL Magnesium 2.1 (1.6-2.3) mg/dL Total Bilirubin 0.6 (0.2-1.3) mg/dL AST 31 (14-36) U/L ALT 18 (6-35) U/L Alkaline Phosphatase 99 (38-126) U/L Troponin I < 0.012 (0.000-0.034) ng/mL NT-Pro-B Natriuret Pep 988 H (19.9-100) pg/mL Total Protein 8.0 (6.3-8.2) g/dL Albumin 4.2 (3.5-5.1) g/dL Urine Color Yellow (Yellow) Urine Appearance Clear (Clear) Urine pH 7.0 (5.0-9.0) Ur Specific Nash 1.005 (1.001-1.035) Urine Protein Negative (Negative) mg/dL Urine Glucose (UA) Negative (Negative) mg/dL Urine Ketones Negative (Negative) mg/dL Ur Blood (Man) Negative (Negative) Urine Nitrate Negative (Negative) Urine Bilirubin Negative (Negative) Urine Urobilinogen 0.2 (<2.0) mg/dL Leukocyte Esterase Rfl Negative (Negative) DARRICK/UL Discharge Plan Discharge Clinical Impression: Hypertension, Headache Patient Disposition: Home, Self-Care Condition: Stable Instructions: Antibiotic Form, Acute Headache (ED) Additional Instructions: Please keep a daily log of your blood pressures and follow-up with your primary care provider this week Prescriptions: No Action atorvastatin 10 mg tablet 10 mg PO DAILY lisinopril 20 mg tablet 20 mg PO BID clonazepam 0.5 mg tablet 0.5 mg PO HS Scemblix 40 mg tablet 80 mg PO DAILY aspirin 81 mg Tablet,Delayed Release (Dr/Ec) 81 mg PO DAILY cholecalciferol (vitamin D3) 25 mcg (1,000 unit) Capsule 25 mcg PO DAILY ascorbate calcium (vitamin C) 500 mg Capsule 1,000 mg PO DAILY hydrocodone-acetaminophen 5-325 mg tablet 1 tablet PO Q4H PRN (Reason: pain) Qty: 14 0RF cefuroxime axetil 500 mg tablet 500 mg PO BID Qty: 20 0RF Follow-up/Referrals: UNKNOWN,DOCTOR [Primary Care Provider] - Time of Disposition: 02:02
[2024-01-21 00:34] LABS: Add Urine Microscopic? NO; Appearance Urine Clear (Clear); Bilirubin Urine Negative (Negative); Blood Urine Negative (Negative); Color Urine Yellow (Yellow); Glucose Urine UA Negative (Negative); Ketones Urine Negative (Negative); Leukocyte Esterase Ur Negative LEU/UL (Negative); Nitrate Urine Negative (Negative); Protein Urine Negative (Negative); Specific Grav Ur 1.005 (1.001-1.035); Urobilinogen Urine 0.2 mg/dL (<2.0)
[2024-01-21 00:39] LABS: Alanine Aminotransferase 18 U/L (6-35); Albumin Level 4.2 g/dL (3.5-5.1); Alkaline Phosphatase 99 U/L (38-126); Anion Gap 8 mmol/L (4-12); Aspartate Amino Transferase 31 U/L (14-36); Bilirubin,Total 0.6 mg/dL (0.2-1.3); Blood Urea Nitrogen 18 mg/dL (7-17); Calcium 9.3 mg/dL (8.4-10.2); Carbon Dioxide 28 mmol/L (22-30); Chloride 101 mmol/L (98-107); Estimated CRCL calculation 33 ml/min; Estimated Glomerular Filt Rate 53; Glucose 88 mg/dL (65-110); Magnesium 2.1 mg/dL (1.6-2.3); Potassium 4.4 mmol/L (3.4-5.0); Sodium 137 mmol/L (137-145)
[2024-01-21 00:44] LABS: Partial Thromboplastin Time 28.5 Seconds (22.3-36.8); Prothrombin Time 13.1 Seconds (11.1-14.7)
[2024-01-21 00:46] LABS: Basophils Percent Auto 0.5 % (0.2-1.2); Eosinophils Absolute Auto 0.2 K/mm3 (0-0.3); Eosinophils Percent Auto 2.9 % (0-4.4); Hematocrit 39.2 % (37.0-47.0); Hemoglobin 13.3 g/dL (12.0-15.0); Immature Granulocyte Absolute 0.01 K/mm3 (0.00-0.031); Immature Granulocyte Percent A 0.2 % (0-0.5); Lymphocytes Absolute Auto 2.04 K/mm3 (0.9-3.2); Mean Corpuscular HGB Conc 33.9 g/dl (32-36); Mean Corpuscular Hemoglobin 33.3 pg (26-34); Mean Corpuscular Volume 98.2 fl (80-100); Mean Platelet Volume 9.4 fl (7.4-10.4); Monocytes Absolute Auto 0.9 K/mm3 (0.1-0.6); Monocytes Percent Auto 12.9 % (2.6-8.5); Neutrophils Absolute Auto 3.5 K/mm3 (1.3-6.7); Neutrophils Percent Auto 52.5 % (45.5-73.1); Platelet Count Result 165 k/mm3 (150-375); Red Blood Count 3.99 M/mm3 (4.2-5.4); White Blood Count 6.6 K/mm3 (4.5-10.0)
[2024-01-21 00:51] LABS: NT Pro B Type Natriuretic Pept 988 pg/mL (19.9-100); Troponin I < 0.012 ng/mL (0.000-0.034)
[2024-01-21] MEDS: hydrALAZINE HCL 20 MG/ML VIAL 10 MG IV PUSH (00:53)
[2024-01-21 00:54] VITALS: BP 181/130; PULSE 68; RESP 10; O2SAT 100
[2024-01-21 01:29] VITALS: BP 152/61; PULSE 91; RESP 13; O2SAT 100
[2024-01-21 02:04] VITALS: BP 127/80; PULSE 74; RESP 11; O2SAT 100
== END 2024-01-21 02:17 | disposition home or self-care (01) ==
PROVIDERS: Emergency Provider Emergency Medicine
DX: I10 Essential (primary) hypertension (principal); R51.9 Headache, unspecified; C92.10 Chronic myeloid leukemia, BCR/ABL-positive, not having achieved remission; E78.5 Hyperlipidemia, unspecified; Z79.899 Other long term (current) drug therapy; Z87.891 Personal history of nicotine dependence
CPT/HCPCS: 36415; 70450; 71045; 80053; 81003; 83735; 83880; 84484; 85025; 85610; 85730; 93005; 96374; 99284; J0360

== ENCOUNTER 2024-04-15 13:22 | Outpatient (CLI) | payer MEDICARE, SELFPAY ==
--- OUTSIDE RECORDS SUMMARY | 2024-04-15 14:06 | XMS_ITS | Encounter Summary ---
Author Organization [facility] Address [address] [place] [address] Phone Care Team Providers Care Java Development Team Lead Name Role Phone Paul Clarke MD Primary Care Provider Barrington Mahan MD Primary Care Provider [phone] Osbaldo POE MD, Ravinder Leon Primary Care Provid er Encounter Details Date Type Department Care Team (Latest Contact Info) Description 03/21/2017 Orders Only [facility] CONVERSION Scanning, Provider Social History Tobacco Use Types Packs/Day Years Used Date Smoking Tobacco: Never Assessed Comments Unknown Sex and Gender Information Value Date Recorded Sex Assigned at Not on file Legal Sex Female 3:14 AM SETTER MACHINE Gender Identity Not on file Sexual Orientation Straight 02/25/2019 6: 42 PM SETTER MACHINE documented as of this encounter Plan of Treatment Not on file documented as of this encounter Procedures Procedure Name Priority Date/Time Associated Diagnosis Comments VASCULAR LABORATORY REPORT 03/21/2017 7:05 PM SETTER MACHINE documented in this encounter Results * VASCULAR LABORATORY REPORT (03/21/2017 7:05 PM SETTER MACHINE) Anatomical Region Laterality Modality Ultrasound us Provider Scanning CV VASCULAR PROCEDURES Final R esult documented in this encounter Visit Diagnoses Not on filedocumented in this encounter Care Teams Java Development Team Lead Relationship Specialty Start Date End Date Paul Clarke MD [address] [place] [id number] PCP - General 02/22/17 03/17/19 Barrington Mahan MD [address] [place] [address] PCP - General Family Medicine 03/18/19 06/26/22 Ravinder Roblero II, MD [address] [place], [place] [id number] PCP - General Family Practice 06/27/22 documented as of this encounter
--- OUTSIDE RECORDS SUMMARY | 2024-04-15 14:06 | XMS_ITS | Encounter Summary ---
Author Organization [facility] Address [address] [place] [address] Phone Care Team Providers Care Group Segment Consultant Name Role Phone Osbaldo POE MD, Ravinder Leon Primary Care Provid er Encounter Details Date Type Department Care Team (Late st Contact Info) Description 06/26/2023 Telephone [facility] Oncology [address] [address] [place] [address] [place] [id number] Bailey Buckner Social History Tobacco Use Types Packs/Day Years Used Date Smoking Tobacco: Former Cigarettes 0.5 15.7 0 03/20/1959 - 12/17/1974 Smokeless Tobacco: Never Alcohol Use Standard Drinks/Week Comments Never 0 (1 standard drink = 0.6 oz pur e alcohol) AUDIT-C Answer Date Recorded Frequency of Alcohol Consumption Never 08/21/2018 Average Number of Drinks Not on file 019 Frequency of Binge Drinking Not on file 06/2018 Comments Unknown Sex and Gender Information Value Date Recorded Sex Assigned at Not on file Legal Sex Female 3:14 AM PAIRER ODDS Gender Identity Not on file Sexual Orientation Straight 02/25/2019 6: 42 PM PAIRER ODDS documented as of this encounter Plan of Treatment Not on file documented as of this encounter Visit Diagnoses Not on filedocumented in this encounter Care Teams Group Segment Consultant Relationship Specialty Start Date End Date Ravinder Roblero II, MD PCP - General Family Practice 06/27/22 documented as of this encounter
--- OUTSIDE RECORDS SUMMARY | 2024-04-15 14:06 | XMS_ITS | Clinical Summary ---
Author Organization [facility] Address [facility] [place] [address] [place] [address] Care Team Providers Care Stacking Machine Operator Name Role Phone Osbaldo POE MD, Ravinder Rubalcava Primary Care Provider Allergies Active Allergy Reactions Criticality Noted Date Comments Sulfa Antibiotics Hives Medium 11/25/2010 Medications aspirin EC (ECOTRIN) 81 MG tablet Take 1 tablet (81 mg total) by mouth daily. Active cholecalciferol (VITAMIN D3) 125 MCG (5000 UT) Tab Take 1 tablet (5,000 Units total) by mouth daily. Active Ascorbic Acid (VITAMIN C) 500 MG Cap Take 1,000 mg by mouth daily. Active Asciminib HCl 40 MG Tab Take 80 mg by mouth daily. 2 Active atorvastatin (LIPITOR) 10 MG tablet Take 1 tablet (10 mg total) by mouth nightly at bedtime. 2 Active multivitamin (THERA) tablet Take 1 tablet by mouth daily. Active lisinopril (PRINIVIL) 40 MG tabletIndications :Primary hypertension Take 1 tablet (40 mg total) by mouth nightly at bedtime. 30 tablet 4 Active clonazePAM (KLONOPIN) 0.5 MG tabletIndications :Anxiety Take 1 tablet (0.5 mg total) by mouth 2 (two) times daily as needed for Anxiety. 60 tablet 3 4 Active amLODIPine (NORVASC) 5 MG tabletIndications :Primary hypertension Take 1 tablet (5 mg total) by mouth daily. 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 Resolved Problems Problem Noted Date Diagnosed Date Resolved Date Colon cancer screening 04/27/202105/03 Encounters Date Type Department Care Team Description 04/07/2024 1:44 AM SALON LEADER - 04/07/2024 4:27 AM SALON LEADER Emergency [facility] [place] [address] Óscar Olguin MD,PHD Hypertension Discharge Disposition: Home or Self Care (Routine Discharge) 04/07/2024 Travel 02/20/2024 4:40 PM SALON LEADER Office Visit [address] [phone] Ravinder Roblero II, MD Earache (Patient presents to discuss left ear pain) 02/20/2024 Travel 02/16/[address] [phone] Ravinder Roblero II, MD Advice 02/01/2024 Patient Outreach [address] [phone] Janet Rushing RN Hospital Follow Up (F/u wk 1) 01/29/2024 1:20 PM SALON LEADER Office Visit [address] [phone] Ravinder Roblero II, MD Lab Results (Patient presents to follow up on labs/elevated troponin) 01/29/2024 Scan H-umus INFO SRVCS Scanned, [facility] 01/29/2024 Travel 01/23/2024 Patient Outreach [address] [phone] Janet Rushing RN TCM (DAREN 01/20-01/21) 01/22/2024 Patient Outreach [address] [phone] Janet Rushing, DOV Hospital Follow Up (DAR[facility] admission notification) 01/21/2024 2:05 PM SALON LEADER - 01/22/2024 12:07 PM SALON LEADER Emergency [facility] [place] [address] Ted Calhoun, DU Powell, Angel Hester MD Hypertension Discharge Disposition: Home or Self Care (Routine Discharge) 01/21/2024 Travel from Last 3 Months Immunizations Name Administration Dates Next Due Fluzone High Dose (IIV, trivalent, 0.5mL) 2023 Fluzone High Dose - >Age 65 (Prefilled Syringe) 01/09/2023,12/25/2020 Influenza (Generic) 01/09/2014 Influenza Adult (Generic) 01/22/2022,01/09/2014 MODERNA COVID-19 (12+) MRNA, LNP-S, PF, 100 MCG/ 0.5 ML DOSE 05/21/2020,04/21/2020 PFIZER COVID-19 (ORIGINAL FO RMULATION, PURPLE CAP) mRNA, LNP-S, PF, 30 MCG/0.3 ML DOSE 02/18/2021 PFIZER COVID-19 BIVALENT (12 +) mRNA, LNP-S, PF, 30 MCG/0.3 ML DOSE 01/12/2022 Family History Medical History Relation Comments Early Father Heart Attack Father Heart Disease Father Breast Cancer Mother Cancer Mother Breast Cancer Sister 1 Cancer Sister 1 Breast Cancer Sister 2 Relation Status Comments Father Mother diagnosed at 75 Sister 1 Alive Sister 2 Social History Tobacco Use Types Packs/Day Years Used Date Smoking Tobacco: Former Cigarettes 0.5 15 Q uit: 1977 Smokeless Tobacco: Never Tobacco Cessation:Counseling Given: No Alcohol Use Standard Drinks/Week Comments Never 0 (1 standard drink = 0.6 oz pur e alcohol) [facility] Utilities Answer Date Recorded In the past 12 months has e [employer], gas, oil, or water company threatened to shut off services in your home? No 01/21/2024 Humiliation, Afraid, Rape, and Kick questionnair e Answer Date Recorded Within the last year, have y ou been afraid of your partner or ex-partner? No 01/21/2024 Within the last year, have y ou been humiliated or emotionally abused in other ways by your partner or ex-partner? No Within the last year, have y ou been kicked, hit, slapped, or otherwise physically hurt by your partner or ex-partner? No 01/21/2024 Within the last year, have y ou been raped or forced to have any kind of sexual activity by your partner or ex-partner? No 01/21/2024 Social Connection and Isolat ion Panel [NHANES] Answer Date Recorded In a typical week, how many times do you talk on the phone with family, friends, or neighbors? More than three times a week 01/21/2024 How often do you get togethe r with friends or relatives? More than three times a week 01/21/2024 How often do you attend [facility] or hinduism services? More than 4 times per year 01/21/2024 Do you belong to any clubs o r organizations such as sikh groups, unions, fraternal or athletic groups, or school groups? No 01/21/2024 How often do you attend meet ings of the clubs or organizations you belong to? Never 01/21/2024 Are you , , di vorced, , never , or living with a partner? 01/21/2024 AUDIT-C Answer Date Recorded Q1: How often do you have a drink containing alcohol? Never 01/21/2024 Q2: How many drinks containi ng alcohol do you have on a typical day when you are drinking? Patient does not drink Q3: How often do you have si x or more drinks on one occasion? Never 01/21/2024 Overall Financial Resource Strain (CARDIA) Answe r Date Recorded How hard is it for you to pa y for the very basics like food, housing, medical care, and heating? Not hard at all 01/21/2024 PHQ-2 Answer Date Recorded Patient Health Questionnaire-2 Score 0 07/18/2023 [facility] - Occupational Stress Questionnaire Answer Date Recorded Do you feel stress - tense, restless, nervous, or anxious, or unable to sleep at night because your mind is troubled all the time - these days? Not at all 01/21/2024 Hunger Vital Sign Answer Date Recorded Within the past 12 months, y ou worried that your food would run out before you got the money to buy more. Never true 01/21/20 24 Within the past 12 months, t he food you bought just didn't last and you didn't have money to get more. Never true 01/21/2024 PRAPARE - Transportation Answer Date Re corded In the past 12 months, has l ack of transportation kept you from medical appointments or from getting medications? No 05/2023 In the past 12 months, has l ack of transportation kept you from meetings, work, or from getting things needed for daily living? No 01/21/2024 Housing Stability Vital Sign Answer Jw e Recorded In the last 12 months, was t here a time when you were not able to pay the mortgage or rent on time? No 01/21/2024 In the past 12 months, how m any times have you moved where you were living? 0 01/21/2024 At any time in the past [address] [facility], were you homeless or living in a [facility] (including now)? No 01/21/2024 Comments No Sex and Gender Information Value Date Recorded Sex Assigned at Female 04/07/2024 2:01 AM SALON LEADER Legal Sex Female 6:39 PM CDT Gender Identity Female 04/13/2021 4:55 PM SALON LEADER Sexual Orientation Straight 04/13/2021 4: 55 PM SALON LEADER Last Filed Vital Signs Vital Sign Reading Time Taken Comments Blood Pressure 142/72 04/07/2024 4:00 AM SALON LEADER Pulse 58 04/07/2024 3:30 AM SALON LEADER Temperature 36.7 ??C (98.1 ??F) 04/07/2024 1:16 AM CS T Respiratory Rate 18 04/07/2024 3:30 AM SALON LEADER Oxygen Saturation 96% 04/07/2024 4:00 AM SALON LEADER Inhaled Oxygen Concentration - - Weight 61.2 kg (135 lb) 04/07/2024 1:16 AM SALON LEADER Height 152.4 cm (5') 04/07/2024 1:16 AM SALON LEADER Body Mass Index 26.37 04/07/2024 1:16 AM SALON LEADER Plan of Treatment Upcoming Encounters Date Type Department Care Team (Late st Contact Info) Description 07/01/2024 9:50 AM CDT Office Visit [facility] Family Medicine - [place] [address] [place] [phone] Ravinder Roblero II, MD [address] [place], [place] [phone] Health Maintenance Due Date Last Done Comments ASCVD Statin 1945 Pneumococcal Vaccine: 65+ Years (1 of 2 - PCV) 07/01/1949 DTaP, Tdap and Td Vaccines (1 - Tdap) 07/01/1962 Zoster Vaccines (1 of 2) 07/01/1962 Annual Medicare Wellness Visit 07/01/2008 RSV Immunization or 60+ Years (1 - 1-dose 75+ series) 07/01/2018 COVID-19 Vaccine ( season) 2023 01/03/2023, 01/12/2022, 02/18/2021, Additional history exists PHQ-2 (Physician Milton) 03/20/2024 07/18/2023 PHQ-2 (Physician Milton) 07/17/2024 07/18/2023 Dexa Scan (General) Completed 02/20/2019, 02/20/2019, 03/02/2017 Influenza Adult Completed 01/01/2024, 12/19, 01/22/2022, Additional history exists Meningococcal B Vaccine Aged Out No l onger eligible based on patient's age to complete this topic Meningococcal Vaccine Aged Out No reta mora eligible based on patient's age to complete this topic RSV Immunizations Under 20 Months Aged Out No longer eligible based on patient's age to complete this topic Goals Goal Patient Goal Type Associated Problems Recent Progress Patient-Stated? 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 Procedure Name Priority Date/Time Associated Diagnosis Comments ECG 12-LEAD STAT 04/07/2024 2:13 AM SALON LEADER TROPONIN, QUANT STAT 04/07/2024 2:10 AM SALON LEADER CBC W/DIFF AUTOMATED STAT 04/07/2024 2:10 AM SALON LEADER COMPREHENSIVE METABOLIC PANEL STAT 04/07/2024 2:10 AM SALON LEADER THYROXINE, FREE (FT4) Routine 01/22/2024 5:45 AM SALON LEADER TSH W/REFLEX Routine 01/22/2024 5:45 AM SALON LEADER LIPID PANEL Routine 01/22/2024 5:45 AM SALON LEADER CBC W/DIFF AUTOMATED Routine 01/22/2024 5:45 AM SALON LEADER COMPREHENSIVE METABOLIC PANEL Routine 01/22/2024 5:45 AM SALON LEADER MAGNESIUM Routine 01/22/2024 5:45 AM SALON LEADER HEMOGLOBIN, GLYCOSYLATED Routine 01/22/2024 5:45 AM SALON LEADER USE ECHOCARDIOGRAM STAT 01/21/2024 8: 59 PM SALON LEADER ECG 12-LEAD Routine 01/21/2024 5:32 PM SALON LEADER THYROID STIM HORMONE TSH Routine 01/21/2024 4:30 PM SALON LEADER TROPONIN, QUANT STAT 01/21/2024 4:30 PM SALON LEADER ECG 12-LEAD Routine 01/21/2024 3:19 PM SALON LEADER PRO-BRAIN NATRIURETIC PEPTIDE STAT 01/21/2024 2:33 PM SALON LEADER TROPONIN, QUANT STAT 01/21/2024 2:33 PM SALON LEADER COMPREHENSIVE METABOLIC PANEL STAT 01/21/2024 2:33 PM SALON LEADER CBC W/DIFF AUTOMATED STAT 01/21/2024 2:33 PM SALON LEADER XR CHEST PA+LAT STAT 01/21/2024 2:18 PM SALON LEADER BONE DENSITY/DEXA Routine 02/20/2019 10: 44 AM SALON LEADER Asymptomatic menopausal state from Last 3 Months or Most Recently Relevant to Health Maintenance Results * ECG 12 lead (04/07/2024 2:13 AM SALON LEADER) Only the most recent of3 resultswithin the time period is included. 04/07/2024 2:13 AM SALON LEADER Narrative [facility] ([facility]) RAD - 04/07/2024 6:01 AM SALON LEADER ?[facility] ? [address] [place] ? Test Date: ?2024-04-07 Pat Name: ? ANISA RIVERA ?Department: ?? 41 ? Room: ? [id number] Gender: ? Female ? Technical Illustrator: ?? Cb : ?1945 ? Requested By: ÓSCAR OLGUIN Order Number: [id number] ? Reading MD: ?? Kristian Beavers ? Measurements Intervals ?[place] ? Rate: ? 62 ? P: ?56 NM: ? 177 ?QRS: ?61 QRSD: ? 86 ? T: ?33 QT: ? 405 ? QTc: ?413 ? Interpretive Statements SINUS RHYTHM Compared to ECG 01/21/2024 17:32:17 Ventricular premature complex(es) no longer present N LEADER Procedure Note Kristian Beavers MD - 04/07/[address] [place] Test Date: 2024-04-07 Pat Name: ANISA RIVERA Department: 41 Room: [place] [address] Gender: Female Technical Illustrator: Romulo : 1945 Requested By: ÓSCAR OLGUIN Order Number: [id number] Reading MD: Kristian Beavers Measurements Intervals [place] Rate: 62 P: 56 NM: 177 QRS: 61 QRSD: 86 T: 33 QT: 405 QTc: 413 Interpretive Statements SINUS RHYTHM Compared to ECG 01/21/2024 17:32:17 Ventricular premature complex(es) no longer present N LEADER us Óscar Olguin MD,PHD ECG ORDERABLES Final Resu lt [facility] RAD * (ABNORMAL) COMPREHENSIVE METABOLIC PANEL (04/07/2024 2:10 AM SALON LEADER) Only the most recent of3 resultswithin the time period is included. GLUCOSE 100(H) 70 - 99 MG/DL 04/07/2024 3:21 AM SALON LEADER [facility] BUN 20(H) 7 - 18 MG/DL 04/07/2024 3:21 AM SALON LEADER [facility] CREATININE S/P/B 1.31(H) 0.55 - 1.02 MG/DL 04/07/2024 3:21 AM SALON LEADER [facility] SODIUM S/P/B 135(L) 136 - 145 MMOL/L 04/07/2024 3:21 AM [facility] POTASSIUM S/P/B 4.0 3.5 - 5.1 MMOL/L 04/07/2024 3:21 AM [facility] CHLORIDE S/P/B 104 97 - 115 MMOL/L 04/07/2024 3:21 AM [facility] CO2 26.2 21 - 32 MMOL/L 04/07/2024 3:21 AM [facility] CALCIUM S/P/B 9.7 8.5 - 10.1 MG/DL 04/07/2024 3:21 AM [facility] BILIRUBIN TOTAL S/P/B 0.4 0.2 - 1.2 MG/DL 04/07/2024 3:21 AM [facility] Comment: THIS ASSAY IS NOT RECOMMENDED FOR PATIENTS UNDERGOING TREATMENT WITH ELTROMBOPAG DUE TO THE POTENTIAL FOR FALSELY ELEVATED RESULTS. TOTAL PROTEIN S/P/B 7.4 6.4 - 8.2 G/DL 04/07/2024 3:48 AM [facility] ALBUMIN S/P/B 3.8 3.4 - 5.0 G/DL 04/07/2024 3:21 AM [facility] AST 6(L) 15 - 37 U/L 04/07/2024 3:21 AM [facility] ALT 15 14 - 55 U/L 04/07/2024 3:21 AM [facility] ALKALINE PHOSPHATASE S/P/B 110 50 - 136 U/L 04/07/2024 3:21 AM [facility] ANION GAP 4.8 2 - 10 MMOL/L 04/07/2024 3:21 AM [facility] BUN CREATININE RATIO 15.3 6 - 26 04/07/2024 3:21 AM [facility] A/G RATIO 1.1 1.0 - 2.0 RATIO 04/07/2024 3:48 AM [facility] GFR ESTIMATE 41(L) >90 ML/MIN/1.7 3 M2 04/07/2024 3:21 AM [facility] Comment: NOTE: eGFR is not calculated for patients <18 years of age or gender unknown. This is an estimated GFR calculation using the new CKD EPI creatinine equation without race and so does not require a correction factor for race. This estimated GFR should not be used for calculating drug doses. 04/07/2024 2:10 AM SALON LEADER us Óscar Olguin MD,PHD LABORATORY Final Resu lt [facility] [address] [place] [address], [place] [phone] * (ABNORMAL) CBC W/DIFF AUTOMATED (04/07/2024 2:10 AM SALON LEADER) Only the most recent of3 resultswithin the time period is included. WBC 7.06 4.5 - 11.0 x10'3/uL 04/07/2024 2:59 AM [facility] RBC 4.03(L) 4.20 - 5.40 x10'6/uL 04/07/2024 2:59 AM SALON LEADER [facility] HGB 13.1 12.0 - 16.0 G/DL 04/07/2024 2:59 AM [facility] HCT 39.2 38.0 - 48.0 % 04/07/2024 2:59 AM SALON LEADER [facility] MCV 97.3 81.0 - 99.0 FL 04/07/2024 2:59 AM SALON LEADER [facility] MCH 32.5(H) 27.0 - 31.0 PG 04/07/2024 2:59 AM SALON LEADER [facility] MCHC 33.4 32.0 - 36.0 G/DL 04/07/2024 2:59 AM [facility] RDW 13.5 11.5 - 14.5 % 04/07/2024 2:59 AM [facility] PLT 152 130 - 400 x10'3/uL 04/07/2024 2:59 AM [facility] MPV 8.9(L) 9.3 - 12.2 FL 04/07/2024 2:59 AM [facility] DIFFERENTIAL TYPE AUTOMATED DIFFERENTIAL 04/07/2024 2:59 AM [facility] NEUTROPHILS % 53.9 % 04/07/2024 2:59 AM [facility] LYMPHOCYTES % 27.2 % 04/07/2024 2:59 AM [facility] MONOCYTES % 14.3 % 04/07/2024 2:59 AM [facility] EOSINOPHILS 4.1 % 04/07/2024 2:59 AM [facility] BASOPHILS 0.4 % 04/07/2024 2:59 AM [facility] IMMATURE GRANS % 0.1 % 04/07/19 2:59 AM [facility] ABS. NEUTROPHILS 3.80 1.80 - 7.70 x10'3/uL 04/07/2024 2:59 AM [facility] ABS. LYMPHOCYTES 1.92 1.00 - 4.80 x10'3/uL 04/07/2024 2:59 AM [facility] ABS. MONOCYTES 1.01(H) 0.24 - 0.86 x10'3/uL 04/07/2024 2:59 AM [facility] ABS. EOSINOPHILS 0.29 0.04 - 0.36 x10'3/uL 04/07/2024 2:59 AM [facility] ABS. BASOPHILS 0.03 0.01 - 0.08 x10'3/uL 04/07/2024 2:59 AM [facility] ABS. IMMATURE GRANULOCYTES 0.01 0.00 - 0.49 x10'3/uL 04/07/2024 2:59 AM SALON LEADER [facility] 04/07/2024 2:10 AM SALON LEADER Óscar Olguin MD,PHD LABORATORY Final Resu lt Performing Organization Address [facility]/ZIP Co de Phone Number [facility] [address] [place] [address], * TROPONIN, QUANT (04/07/2024 2:10 AM SALON LEADER) Only the most recent of3 resultswithin the time period is included. Pathologist [facility] TROPONIN I HIGH SENSITIVITY 11 <54 ng/L 04/07/2024 3:21 AM SALON LEADER [facility] Comment: HIGH DOSES OF BIOTIN, TROPONIN-SPECIFIC AUTOANTIBODIES, AND ANTIBODY THERAPY CONTAINING HAMA MAY INTERFERE WITH THIS TEST RESULT. CORRELATION TO CLINICAL HISTORY AND PRESENTATION RECOMMENDED. 04/07/2024 2:10 AM SALON LEADER Óscar Olguin MD,PHD LABORATORY Final Resu Performing Organization Address [facility] Co de Phone Number [facility] [address] [place] [address], * (ABNORMAL) TSH W/REFLEX (01/22/2024 5:45 AM SALON LEADER) TSH 4.610(H) 0.358 - 3.74 uIU/ML 01/22/2024 6:40 AM SALON LEADER [facility] Comment: HIGH DOSES OF BIOTIN MAY INTERFERE WITH THIS TEST RESULT. CORRELATION TO CLINICAL HISTORY AND PRESENTATION RECOMMENDED. 01/22/2024 5:45 AM SALON LEADER Angel Powell MD LABORATORY Final Result Performing Organization Address City/[facility]/ZIP Co de Phone Number [facility] [address] [place] [address], * HEMOGLOBIN, GLYCOSYLATED (01/22/2024 5:45 AM SALON LEADER) HGB A1C 5.3 <5.7 % 01/22/2024 10:12 AM SALON LEADER [facility] Comment: ADA GUIDELINES 2010 5.7 TO 6.4% INCREASED RISK OF DIABETES > OR = 6.5% CONSISTENT WITH DIABETES ESTIMATED AVG GLUCOSE 105 mg/dL 01/22/2024 10:12 AM [facility] 01/22/2024 5:45 AM SALON LEADER Saima Blackwell NP LABORATORY Final Result [facility] [address] [place] [address], * LIPID PANEL (01/22/2024 5:45 AM SALON LEADER) CHOLESTEROL 122 <200 MG/DL 01/22/2024 6:40 AM [facility] TRIGLYCERIDES 63 <150 MG/DL 01/22/2024 6:40 AM [facility] HDL 74 >40.0 MG/DL 01/22/2024 6:40 AM [facility] LDL (CALCULATED) 35 <100 MG/DL 01/22/20 6:40 AM SALON LEADER [facility] NON HDL CHOLESTEROL 48 <130 MG/DL 01/21 6:40 AM [facility] CHOL/HDL RATIO 1.6 0.0 - 4.5 01/22/2024 6:40 AM [facility] VLDL CALCULATION 13 5 - 55 MG/DL 01/22/2024 6:40 AM SALON LEADER [facility] LIPID INTERPRETATION 01/22/2024 6:40 AM SALON LEADER [facility] Comment: NIH CONCENSUS REPORT RECOMMENDATIONS: ?ADULT ?CHILD ??LOW RISK: ?CHOLESTEROL ? <200 ? <170 ?TRIGLYCERIDE ?<150 ?--- ?HDL ? >=60 ?--- ?LDL ? <100 ? <110 ??BORDERLINE: ?CHOLESTEROL ? 200-239 ?? 170-199 ?TRIGLYCERIDE ?150-199 ? --- ?HDL ?40-59 ?--- ?LDL ? 100-159 ?? 110-129 ??HIGH RISK: ?CHOLESTEROL ? >=240 ?>=200 ?TRIGLYCERIDE ?>=200 ? --- ?HDL ?<40 ?--- ?LDL ? >=160 ?>=130 01/22/2024 5:45 AM SALON LEADER us Jemila Kacie Powell MD LABORATORY Final Result Performing Organization Address [facility] de Phone Number [address] [address], * (ABNORMAL) THYROXINE, FREE (FT4) (01/22/2024 5:45 AM SALON LEADER) FREE T4 1.58(H) 0.76 - 1.46 NG/DL 01/22/2024 6:58 AM SALON LEADER [facility] 01/22/2024 5:45 AM SALON LEADER Saima Blackwell NP LABORATORY Final Result Performing Organization Address [facility] de Phone Number [address] [address], * MAGNESIUM (01/22/2024 5:45 AM SALON LEADER) MAGNESIUM 2.3 1.8 - 2.4 MG/DL 01/22/2024 6:40 AM SALON LEADER [facility] 01/22/2024 5:45 AM SALON LEADER Saima Blackwell NP LABORATORY Final Result Performing Organization Address [facility] de Phone Number [address] [address], * USE ECHOCARDIOGRAM (01/21/2024 8:59 PM SALON LEADER) Anatomical Region Laterality Modality Cardiac Echocardiogram 01/21/2024 9:16 PM SALON LEADER Narrative 01/22/2024 9:44 AM SALON LEADER ?Echocardiography Report Pat.Name: ??ANISA RIVERA ?Pat.ID: ?[id number] ? St.Date: ?? 01/21/2024 ? Exam Time: 9:16:00 PM ? Study Type:ECHO WITH CARDIAC DOPPLER COMP Height: ?60 in ? Weight: ?135 lb ?BSA: ? 1.58 m2 ?Age: ??1945,78Y ? Sex: ? F ? BP: ?115/72 ?HR: ?55 bpm ? Sonogrphr: Lanceusimbi, Semu, RCS ?Pat. Stat.:Inpatient ? Room: ?CDU 6 ? Reason for Study:Hypertension ? Procedures: 2D, M-mode, Doppler, Color Flow, The study quality is technically fair. Race: ?W ? ++++++++++++++++++++++++++++++++++++ SUMMARY: ++++++++++++++++++++++++++++++++++++ The left ventricular systolic function is hyperdynamic. Estimated left ventricular ejection fraction is >70%. Left ventricular diastolic function is indeterminant. Wall motion appears normal in all segments. Trace to mild mitral regurgitation. Mild tricuspid regurgitation. Right ventricular systolic pressure is 35-45 mmHg suggestive of mild pulmonary hypertension. ++++++++++++++++++++++++++++++++++++ FINDINGS: ++++++++++++++++++++++++++++++++++++ LV: ? The left ventricular size is small. The left ventricular ?systolic function is hyperdynamic. Estimated left ?ventricular ejection fraction is >70%. No left ventricular ?hypertrophy. Left ventricular diastolic function is ?indeterminant. WM: ? Wall motion appears normal in all segments. RV: ? The right ventricular size is normal. Right ventricular ?systolic function is normal. IVS: ?No evidence of ventricular septal defect. LA: ? The left atrial volume is normal ( less than 34 ml/M2). RA: ? Right atrial size is in the upper limits of normal. IAS: ?Atrial septum appears intact. JUDY: ? No evidence of pericardial effusion. AO: ? Normal aortic root. PA: ? Estimated right atrial pressure of 3 mmHg. SVn: ?Inferior vena cava is normal. Inferior vena cava shows >50% ?collapse with respiration consistent with normal right ?atrial pressure. AV: ? The aortic valve is trileaflet. No evidence of aortic valve ?stenosis. No evidence of aortic regurgitation. MV: ? Trace to mild mitral regurgitation. No evidence of mitral ?valve stenosis. Mildly calcified posterior mitral annulus. PV: ? No evidence of pulmonic valve stenosis. No evidence of ?pulmonic regurgitation. TV: ? Structurally normal tricuspid valve. Mild tricuspid ?regurgitation. Right ventricular systolic pressure is 35-45 ?mmHg suggestive of mild pulmonary hypertension. No evidence ?of tricuspid valve stenosis. ++++++++++++++++++++++++++++++++++++ MEASUREMENTS: ++++++++++++++++++++++++++++++++++++ ?DOPPLER LVOT ?? LVOTpkPG ? 9 mmHg ?LVOTmnPG ? 5 mmHg LVOTpkVel ?148 cm/s (70-110)+* LVOT SV ?101 ml ?? LVOT TVI ?32.2 cm ?LVOT CO ?130 ml/s Pulmonary Veins ?? PVnpkVeld ? 55.9 cm/s ?PVnVs/Vd ? 1.4 ? PVnpkVels ? 78.2 cm/s ?PVn A Dur ?148 msec AV Forward Flow AV TVI ?36.1 cm ?AV pkPG ?9 mmHg AV pkVel ? 152 cm/s (100-170)+ Area (TVI) ? 2.8 cm2 ??(3-5)* AV mnPG ?7 mmHg ?Area (Mesfin) ?3.06 cm2 ??(3- 5) MV Forward Flow MV DeTm ?243 msec ? MV pkE ?83.2 cm/s (60-130)+ MV E/A ? 0.7 ? MV pkA ? 120 cm/s PV Forward Flow PV pkVel ?88.7 cm/s (60-90) ??PV AC ?178 msec PV pkPG ?3 mmHg ? TV Regurg Flow TV pkPG ? 36 mmHg ?TV pkVel ? 299 cm/s (30- 70)* TV Forward Flow TV pkE ?60.4 cm/s ? Lat E' ?? Lat e ? 9.18 cm/s ? Lat E/E' ?? Lat E/e ?9.1 ? Med E' ?? Med e ? 8.58 cm/s ? Med E/E' ?? Med E/e ?9.7 ? Aortic Valve ?? Aortic Valve Ar ??1.77 ?Aortic Valve Ve ??0.97 ? PV Antegrade Flow Acceleration Sl ?? 421 cm/s2 ? Right Atrium ?? Torres's Disk ? 20 ? Right Ventricle ?? Right Ventricle ??16.4 cm/s ?2D Left Ventricle ?? LVIDd ? 3.68 cm ?? (3.6-5.2) LV ESV ?20.6 ml ?? LVIDs ? 2.57 cm ?? (2.3-3.9) LV ESV ?22.2 ml ?? LngAxd ? 7.9 cm ?LVESV BP ?22.6 ml ?? LngAxd ?7.71 cm ?LV EF ? 66.1 % ?? LV EDV ?60.7 ml ?LV EF ? 53.3 % ?? LV EDV ?47.6 ml ?LV EF BP ?58.4 % ?? LVEDV BP ?54.3 ml ?LV SV ? 40.2 ml ?? LngAxs ?6.04 cm ?LV SV ? 25.3 ml ?? LngAxs ? 6.8 cm ?LV SV BP ?31.7 ml ?? LVPW ?? LVPWd ?0.945 cm ? Right Ventricle ?? RVIDd ? 3.05 cm ?? (2.6-4.3) Right Ventricle ??20.9 mm ?? Right Ventricle ??26.5 mm ? Right and Left ??0.829 ? [place] ?70.1 mm ? Ventricular Septum ?? IVSd ? 0.976 cm ? Left Atrium ?? LA VOLBP ?31.7 ml ? Aorta ?? Ao Rtd ? 3.2 cm ? LVOT ?? LVOT ? 2 cm ?LVOTArea ?3.14 cm2 Ratios ?? IVS Inferior vena cava ?? IVC Diam ?14.9 mm ? LA Biplane LAVol I BP ?20.1 ml/m2 ? RA Single Plane Right Atrium MO ??14.1 mm ? Right Atrium Sy ??35.8 ml ?? Right Atrium Sy ??47.6 mm ? Right Atrium Sy ??22.7 ml/m2 Right Atrium Sy ??14.8 cm2 ?MMODE TA ?? Tricuspid Annul ??28.7 mm ? <Electronic Signature> 01/22/2024 09:44 AM Farida Malcolm M.D. Procedure Note Farida Malcolm MD - 01/22/2024 Echocardiography Report Pat.Name: ANISA RIVERA Pat.ID: [id number] .Date: 01/21/2024 Exam Time: 9:16:00 PM Study Type:ECHO WITH CARDIAC DOPPLER COMP Height: 60 in Weight: 135 lb BSA: 1.58 m2 Age: 4 1945,78Y Sex: F BP: 115/72 HR: 55 bpm Sonogrphr: Heladio Rios RCS Pat. Stat.:Inpatient Room: [facility] Reason for Study:Hypertension Procedures: 2D, M-mode, Doppler, Color Flow, The study quality is technically fair. Race: W ++++++++++++++++++++++++++++++++++++ SUMMARY: ++++++++++++++++++++++++++++++++++++ The left ventricular systolic function is hyperdynamic. Estimated left ventricular ejection fraction is >70%. Left ventricular diastolic function is indeterminant. Wall motion appears normal in all segments. Trace to mild mitral regurgitation. Mild tricuspid regurgitation. Right ventricular systolic pressure is 35-45 mmHg suggestive of mild pulmonary hypertension. ++++++++++++++++++++++++++++++++++++ FINDINGS: ++++++++++++++++++++++++++++++++++++ LV: The left ventricular size is small. The left ventricular systolic function is hyperdynamic. Estimated left ventricular ejection fraction is >70%. No left ventricular hypertrophy. Left ventricular diastolic function is indeterminant. WM: Wall motion appears normal in all segments. RV: The right ventricular size is normal. Right ventricular systolic function is normal. IVS: No evidence of ventricular septal defect. LA: The left atrial volume is normal ( less than 34 ml/M2). RA: Right atrial size is in the upper limits of normal. IAS: Atrial septum appears intact. JUDY: No evidence of pericardial effusion. AO: Normal aortic root. PA: Estimated right atrial pressure of 3 mmHg. SVn: Inferior vena cava is normal. Inferior vena cava shows >50% collapse with respiration consistent with normal right atrial pressure. AV: The aortic valve is trileaflet. No evidence of aortic valve stenosis. No evidence of aortic regurgitation. MV: Trace to mild mitral regurgitation. No evidence of mitral valve stenosis. Mildly calcified posterior mitral annulus. PV: No evidence of pulmonic valve stenosis. No evidence of pulmonic regurgitation. TV: Structurally normal tricuspid valve. Mild tricuspid regurgitation. Right ventricular systolic pressure is 35-45 mmHg suggestive of mild pulmonary hypertension. No evidence of tricuspid valve stenosis. ++++++++++++++++++++++++++++++++++++ MEASUREMENTS: ++++++++++++++++++++++++++++++++++++ DOPPLER LVOT LVOTpkPG 9 mmHg LVOTmnPG 5 mmHg LVOTpkVel 148 cm/s (70-110)+* LVOT SV 101 ml LVOT TVI 32.2 cm LVOT CO 130 ml/s Pulmonary Veins PVnpkVeld 55.9 cm/s PVnVs/Vd 1.4 PVnpkVels 78.2 cm/s PVn A Dur 148 msec AV Forward Flow AV TVI 36.1 cm AV pkPG 9 mmHg AV pkVel 152 cm/s (100-170)+ Area (TVI) 2.8 cm2 (3-5)* AV mnPG 7 mmHg Area (Mesfin) 3.06 cm2 (3-5) MV Forward Flow MV DeTm 243 msec MV pkE 83.2 cm/s (60-130)+ MV E/A 0.7 MV pkA 120 cm/s PV Forward Flow PV pkVel 88.7 cm/s (60-90) PV AC 178 msec PV pkPG 3 mmHg TV Regurg Flow TV pkPG 36 mmHg TV pkVel 299 cm/s (30-70)* TV Forward Flow TV pkE 60.4 cm/s Lat E' Lat e 9.18 cm/s Lat E/E' Lat E/e 9.1 Med E' Med e 8.58 cm/s Med E/E' Med E/e 9.7 Aortic Valve Aortic Valve Ar 1.77 Aortic Valve Ve 0.97 PV Antegrade Flow Acceleration Sl 421 cm/s2 Right Atrium Torres's Disk 20 Right Ventricle Right Ventricle 16.4 cm/s 2D Left Ventricle LVIDd 3.68 cm (3.6-5.2) LV ESV 20.6 ml LVIDs 2.57 cm (2.3-3.9) LV ESV 22.2 ml LngAxd 7.9 cm LVESV BP 22.6 ml LngAxd 7.71 cm LV EF 66.1 % LV EDV 60.7 ml LV EF 53.3 % LV EDV 47.6 ml LV EF BP 58.4 % LVEDV BP 54.3 ml LV SV 40.2 ml LngAxs 6.04 cm LV SV 25.3 ml LngAxs 6.8 cm LV SV BP 31.7 ml LVPW LVPWd 0.945 cm Right Ventricle RVIDd 3.05 cm (2.6-4.3) Right Ventricle 20.9 mm Right Ventricle 26.5 mm Right and Left 0.829 [place] 70.1 mm Ventricular Septum IVSd 0.976 cm Left Atrium LA VOLBP 31.7 ml Aorta Ao Rtd 3.2 cm LVOT LVOT 2 cm LVOTArea 3.14 cm2 Ratios IVS Inferior vena cava IVC Diam 14.9 mm LA Biplane LAVol I BP 20.1 ml/m2 RA Single Plane Right Atrium MO 14.1 mm Right Atrium Sy 35.8 ml Right Atrium Sy 47.6 mm Right Atrium Sy 22.7 ml/m2 Right Atrium Sy 14.8 cm2 MMODE TA Tricuspid Annul 28.7 mm <Electronic Signature> 01/22/2024 09:44 AM Farida Malcolm M.D. Saima Blackwell GENERAL COUNSEL ECHO Final Result * THYROID STIM HORMONE, TSH (01/21/2024 4:30 PM SALON LEADER) TSH 2.240 0.358 - 3.74 uIU/ML 01/21/2024 5:26 PM SALON LEADER [facility] Comment: HIGH DOSES OF BIOTIN MAY INTERFERE WITH THIS TEST RESULT. CORRELATION TO CLINICAL HISTORY AND PRESENTATION RECOMMENDED. 01/21/2024 4:30 PM SALON LEADER [facility] Final Resul t Performing Organization Address [facility]/ZIP Co de Phone Number [facility] [address] [place] [phone], * (ABNORMAL) PRO-BRAIN NATRIURETIC PEPTIDE (01/21/2024 2:33 PM SALON LEADER) PRO-B TYPE NATRIURETIC PEPTIDE 1,645(H) <450 PG/ML 01/21/2024 3:17 PM SALON LEADER [facility] Comment: CUT POINTS ESTABLISHED BY [employer] ON NT PROBNP (ICON) STUDY (2006). AGE INDEPENDENT: <300 PG/ML HAS A 99% NEGATIVE PREDICTIVE VALUE FOR EXCLUDING ACUTE CHF <50 YEARS: >450 PG/ML IS CONSISTENT WITH ACUTE CHF 50-75 YEARS: >900 PG/ML IS CONSISTENT WITH ACUTE CHF >75 YEARS: >1800 PG/ML IS CONSISTENT WITH ACUTE CHF IN PATIENTS WITH RENAL INSUFFICIENCY (GFR <60), >1200 PG/ML YIELDS A DIAGNOSTIC SENSITIVITY AND SPECIFICITY OF 89% AND 72% FOR ACUTE CHF. 01/21/2024 2:33 PM SALON LEADER Ted [facility] Final Resul t Performing Organization Address City/[facility]/ZIP Co de Phone Number [facility] [address] [place] [id number], [place] [phone] * XR CHEST PA+LAT (01/21/2024 2:18 PM SALON LEADER) Anatomical Region Laterality Modality Chest Radiographic Roselyn ging 01/21/2024 2:19 PM SALON LEADER Impressions 01/21/2024 2:20 PM SALON LEADER IMPRESSION: Hyperinflation Ordered By: TED CALHOUN Interpreted By: Juan Mahmood MD, 01/21/2024 2:19 PM Narrative 01/21/2024 2:20 PM SALON LEADER [place] [id number] 2 VIEWS OF THE CHEST Clinical history: Hypertension Comparison: None 2 views of the chest demonstrate the cardiac silhouette to be normal in size. The pulmonary vasculature appears normal. The Lungs are clear. No consolidations or effusions are seen. Mild hyperinflation is noted Procedure Note Juan Mahmood MD - 01/21/2024 [place] [id number] 2 VIEWS OF THE CHEST Clinical history: Hypertension Comparison: None 2 views of the chest demonstrate the cardiac silhouette to be normal insize. The pulmonary vasculature appears normal. The Lungs are clear. Noconsolidations or effusions are seen. Mild hyperinflation is noted IMPRESSION: Hyperinflation Ordered By: TED CALHOUN Interpreted By: Juan Mahmood MD, 01/21/2024 2:19 PM Ted Calhoun PA [facility] Final Resul t * BONE DENSITY/DEXA (02/20/2019 10:44 AM SALON LEADER) Anatomical Region Laterality Modality Bone Mammography 02/20/2019 10:4 7 AM SALON LEADER Impressions 02/20/2019 10:50 AM SALON LEADER =====IMPRESSION:===== Lumbar spine bone density: Normal Increased lumbar spine bone density since prior exam. Degenerative changes and scoliosis noted on the DEXA image. Sclerotic foci noted lumbar spine. Likely arthritis. Consider follow-up lumbar spine image is to exclude lasting lesion. Bilateral femoral neck bone density: Osteopenia No significant change from prior exam. Bilateral total femur bone density: Osteopenia No significant change from prior exam. Narrative 02/20/2019 10:50 AM SALON LEADER Examination: Bone Density Axial Exam date/time: 02/20/2019 10:10 AM Reason For Exam: ? Postmenopausal. History of leukemia. Hormone replacement therapy. Comparison: DEXA scan 03/02/2017. Findings: ??DEXA bone densitometry ?The bone mineral density (BMD) was determined by dual-energy x-ray absorptiometry, the results are as follows: ?AP Lumbar Spine L1 through L4 ?BMD [place] 1.185 ?T-Score (Standard deviations from young adult peak bone density): 1.3 ?Bilateral femoral neck: ?BMD [place] 0.718 ?T-Score (Standard deviations from young adult peak bone density): -1.2 ? Total femur: ?BMD Patient ([facility] 0.800 ? T-Score (Standard deviations from young adult peak bone density): -1.2 Procedure Note Riaz Alexis MD - 02/20/2019 Examination: Bone Density Axial Exam date/time: 02/20/2019 10:10 AM Reason For Exam: Postmenopausal. History of leukemia. Hormone replacement therapy. Comparison: DEXA scan 03/02/2017. Findings: DEXA bone densitometry The bone mineral density (BMD) was determined by dual-energy x-ray absorptiometry, the results are as follows: AP Lumbar Spine L1 through L4 BMD Patient (GM/SQCM): 1.185 T-Score (Standard deviations from young adult peakbone density): 1.3 Bilateral femoral neck: BMD Patient (GM/SQCM): 0.718 T-Score (Standard deviations from young adult peakbone density): -1.2 Total femur: BMD Patient (GM/SQCM): 0.800 T-Score (Standard deviations from young adult peakbone density): -1.2 =====IMPRESSION:===== Lumbar spine bone density: Normal Increased lumbar spine bone density since prior exam. Degenerative changes and scoliosis noted on the DEXA image. Scleroticfoci noted lumbar spine. Likely arthritis. Consider follow-up lumbar spineimage is to exclude lasting lesion. Bilateral femoral neck bone density: Osteopenia No significant change from prior exam. Bilateral total femur bone density: Osteopenia No significant change from prior exam. 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
--- OUTSIDE RECORDS SUMMARY | 2024-04-15 14:06 | XMS_ITS | Encounter Summary ---
Author Organization [facility] Address [address] [place] [address] Phone Care Team Providers Care Environmental Engineer Scientist Name Role Phone Paul Clarke MD Primary Care Provider [phone] Barrington Mahan MD Primary Care Provider [phone] Osbaldo POE MD, Ravinder Leon Primary Care Provid er Encounter Details Date Type Department Care Team (Latest Contact Info) Description 07/12/2018 Orders Only [facility] Scanning, Provider Social History Tobacco Use Types Packs/Day Years Used Date Smoking Tobacco: Former Smokeless Tobacco: Never Comments Unknown Sex and Gender Information Value Date Recorded Sex Assigned at Not on file Legal Sex Female 3:14 AM COIL 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 Gender Identity Not on file Sexual Orientation Straight 02/25/2019 6: 42 PM COIL 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 documented as of this encounter Plan of Treatment Not on file documented as of this encounter Procedures Procedure Name Priority Date/Time Associated Diagnosis Comments SCAN - LABS 07/12/2018 documented in this encounter Results * SCAN - LABS (07/12/2018) us Provider Scanning Final Result documented in this encounter Visit Diagnoses Not on filedocumented in this encounter Care Teams Environmental Engineer Scientist Relationship Specialty Start Date End Date Paul Clarke MD [address] [address] PCP - General 02/22/17 03/17/19 Barrington Mahan MD [address] [place] [address] PCP - General Family Medicine 03/18/19 06/26/22 Ravinder Roblero II, MD [address] [facility] [place] [id number] PCP - General Family Practice 06/27/22 documented as of this encounter
--- OUTSIDE RECORDS SUMMARY | 2024-04-15 14:06 | XMS_ITS | Clinical Summary ---
Author Organization [facility] Medical [facility] [address] [place] [phone] Care Team Providers Care Travel Director Name Role Phone Osbaldo POE MD, Ravinder Edward Primary Care Provid er Allergies Active Allergy Reactions Criticality Noted Date Comments Sulfa (Sulfonamide Antibiotics) Hives Medium 10/2010 Medications multivit-cigar packing examiner als/ferrous fum (MULTI VITAMIN ORAL)Indicatio ns:CML (chronic myelocytic leukemia) (CMS/HCC) ([facility]) daily. Active aspirin 81 mg enteric coated tabletIndicati ons:prevention of thrombosis Take 1 tablet (81 mg total) by mouth daily 30 tablet 11 9 Active ascorbic acid, vitamin C, 500 mg capsuleIndicat ions:Chronic myeloid leukemia (CMS/HCC) (HCC) Take 1 capsule by mouth daily Active cholecalcifero l (VITAMIN D-3) 5,000 unit tabletIndicati ons:Chronic myeloid leukemia (CMS/HCC) (HCC) Take 1 tablet (5,000 Units total) by mouth daily Active clonazePAM (KlonoPIN) 0.5 mg tabletIndicati ons:Chronic myeloid leukemia (CMS/HCC) (HCC) Take 1 tablet (0.5 mg total) by mouth nightly as needed for seizures 60 tablet 3 3 Active asciminib (SCEMBLIX) 40 mg tabletIndicati ons:Chronic myeloid leukemia (CMS/HCC) (HCC) Take 2 tablets (80 mg total) at the same time daily on empty stomach. Avoid food 2 hours before and 1 hour after dose. Swallow whole. 60 tablet 11 4 Active atorvastatin (LIPITOR) 10 mg tabletIndicati ons:Bilateral carotid artery stenosis Take 1 tablet by mouth once daily 90 tablet 3 4 Active carvediloL (COREG) 3.125 mg tablet Take 1 tablet (3.125 mg total) by mouth 2 (two) times a day with meals 60 tablet 11 5 04/05/19 26 Active lisinopriL (PRINIVIL,ZEST RIL) 40 mg tablet Take 1 tablet (40 mg total) by mouth nightly 30 tablet 3 5 Active amLODIPine (NORVASC) 5 mg tablet Take 1 tablet (5 mg total) by mouth daily May take additional 5 mg once daily for elevated BP 4 04/05/19 25 Discontinu ed(Alterna te therapy) lisinopriL (PRINIVIL,ZEST RIL) 40 mg tablet Take 1 tablet (40 mg total) by mouth nightly 4 04/08/19 25 Discontinu ed(Reorder ) Active Problems Problem Noted Date Diagnosed Date Tinnitus of left ear 03/05/2024 Mixed conductive and sensori neural hearing loss of left ear with restricted hearing of right ear 03/05/2024 Dysfunction of left eustachian tube 03/05/2024 Bilateral carotid artery stenosis 03/17/2020 Shortness of breath 09/11/2019 Essential hypertension 03/18/2019 LVH (left ventricular hypertrophy) 08/21/2018 Emphysema of lung 08/21/2018 Chronic myeloid leukemia (CMS/HCC) 01/24/2014 Encounters Date Type Department Care Team Description 04/08/2024 Telephone [facility] Cardiology [address] [place] [address] Jacob Mckenna MD 04/05/2024 Telephone [facility] Cardiology [address] [place] [address] Jacob Mckenna MD Leg Swelling; nerve pain and burning; Hypertension 03/05/2024 9:00 AM CONSULTANT TECHNOLOGY Office Visit [facility] Otolaryngology [address] [place] [address] Roxann Banerjee, SERENA Dysfunction of left eustachian tube (Primary Dx); Mixed conductive and sensorineural hearing loss of left ear with restricted hearing of right ear; Tinnitus of left ear 03/05/2024 8:30 AM CONSULTANT TECHNOLOGY Procedure visit [facility] Otolaryngology [address] [place] [address] Dale Tessajith Raeelle 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 (Primary Dx) 02/19/2024 10:30 AM CONSULTANT TECHNOLOGY Office Visit [facility] Bone Marrow Transplant [facility] [address] [place] [address] Jameson Cameron MD PhD Chronic myeloid leukemia (CMS/HCC) (HCC) (Primary Dx) 02/19/2024 9:45 AM CONSULTANT TECHNOLOGY Lab [facility] - Lab Collection [facility] [address] [place] [address] Chronic myeloid leukemia (CMS/HCC) (HCC) 02/19/2024 9:30 AM CONSULTANT TECHNOLOGY Lab [facility] Oncology Lab [facility] [address] [place] [address] Chronic myeloid leukemia (CMS/HCC) (HCC) 02/06/2024 2:30 PM CONSULTANT TECHNOLOGY Office Visit [facility] Cardiology [address] [facility] [address] [place] [phone] Carmen Mcconnell NP Essential hypertension (Primary Dx); 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) (HCC); Hospital discharge follow-up 01/23/2024 Telephone [facility] Cardiology [address] [place] [phone] Jacob Mckenna MD from Last 3 Months Immunizations Name Administration Dates Next Due Influenza, Quadrivalent, Hig h Dose, Preservative Free, Intrr 01/09/2023,12/25/2020 Influenza, Trivalent, IM (MDV) 01/09/2014 Influenza, Unspecified 01/22/2022 Moderna SARS-CoV-2 Monovalent Vaccination (12+ Y RS) 05/21/2020,04/23/2020 Pfizer SARS-CoV-2 Monovalent Vaccination (12+ Yrs) PURPLE 02/18/2021 Pfizer Sars-Cov-2 Bivalent Vaccination (12+ YRS) 01/12/2022 Surgical History Surgery Date Site/Laterality Comments BONE MARROW BIOPSY CATARACT EXTRACTION Feb 24, 2020 and Mar 09, 2020 WRIST ARTHROPLASTY 08/03/2022 Right Medical History Medical History Date Comments Leukemia, acute myeloid (HCC) Hypertension Emphysema of lung (HCC) 2019 Family History Medical History Relation Name Comments Hypertension Brother Rohan Sauceda Family his tory of hypertension - (Added by TW Conv) Heart attack Father Ravinder Sauceda Family histo ry of myocardial infarction - (Added by TW Conv) Breast cancer Mother Julienne [place] Family history of malignant neoplasm of breast - (Added by TW Conv) Cancer Mother Julienne [place] Heart attack Mother Julienne [place] Family history of myocardial infarction - (Added by TW Conv) Breast cancer Sister Family history of malignant neoplasm of breast - (Added by TW Conv) Relation Name Status Comments Brother Rohan Sauceda Father Ravinder Sauceda Mother Julienne [place] Sister Social History Tobacco Use Types Packs/Day Years Used Date Smoking Tobacco: Former Cigarettes 0.5 15.7 0 03/20/1959 - 12/17/1974 Smokeless Tobacco: Never Tobacco Cessation:Counseling Given: Not Answered Alcohol Use Standard Drinks/Week Comments Never 0 (1 standard drink = 0.6 oz pur e alcohol) AUDIT-C Answer Date Recorded Frequency of Alcohol Consumption Never 08/21/2018 Average Number of Drinks Not on file 019 Frequency of Binge Drinking Not on file 06/2018 Comments Unknown Sex and Gender Information Value Date Recorded Sex Assigned at Not on file Legal Sex Female 3:14 AM CONSULTANT TECHNOLOGY Gender Identity Not on file Sexual Orientation Straight 02/25/2019 6: 42 PM CONSULTANT TECHNOLOGY Obstetrics History Last Filed Vital Signs Vital Sign Reading Time Taken Comments Blood Pressure 137/86 02/19/2024 10:53 AM CONSULTANT TECHNOLOGY Pulse 74 02/19/2024 10:53 AM CONSULTANT TECHNOLOGY Temperature 36.6 ??C (97.8 ??F) 02/19/2024 10:[address] Respiratory Rate 18 03/05/2024 8:46 AM CONSULTANT TECHNOLOGY Oxygen Saturation 98% 02/19/2024 10:53 AM CONSULTANT TECHNOLOGY Inhaled Oxygen Concentration - - Weight 60.3 kg (133 lb) 03/05/2024 8:46 AM CONSULTANT TECHNOLOGY Height 152.4 cm (5') 03/05/2024 8:46 AM CONSULTANT TECHNOLOGY Body Mass Index 25.97 03/05/2024 8:46 AM CONSULTANT TECHNOLOGY Plan of Treatment Health Maintenance Due Date Last Done Comments Depression Screening 1943 Fall Risk Assessment 1945 Pneumococcal vaccine 65+ (1 of 2 - PCV) 07/01/1949 DTaP/Tdap/Td Vaccine (1 - Tdap) 07/01/1954 Hepatitis B Screening 07/01/1961 Zoster Vaccine (1 of 2) 07/01/1962 Well Visit 65+ 07/01/2008 Osteoporosis Screening-Bone Density Scan 02/20/2021 02/20/2019, 03/02/2017 Covid-19 Vaccine (5 - 2023-2 5 season) 2023 01/12/2022, 02/18/2021, 05/21/2020, Additional history exists Influenza Vaccine Completed 01/01/2024, , 01/22/2022, Additional history exists Procedures Procedure Name Priority Date/Time Associated Diagnosis Comments EGFR Routine 02/19/2024 9:32 AM CONSULTANT TECHNOLOGY Chronic myeloid leukemia (CMS/HCC) (HCC) DIFFERENTIAL AUTO Routine 02/19/2024 9:3 2 AM CONSULTANT TECHNOLOGY Chronic myeloid leukemia (CMS/HCC) (HCC) CBC WITH AUTO DIFFERENTIAL Routine 02/19/2024 9:32 AM CONSULTANT TECHNOLOGY Chronic myeloid leukemia (CMS/HCC) (HCC) COMPREHENSIVE METABOLIC PANEL Routine 02/19/2024 9:32 AM CONSULTANT TECHNOLOGY Chronic myeloid leukemia (CMS/HCC) (HCC) LACTATE DEHYDROGENASE Routine 02/19/2024 9:32 AM CONSULTANT TECHNOLOGY Chronic myeloid leukemia (CMS/HCC) (HCC) BCR/ABL P210 QUANTITATIVE, PCR Routine 02/19/2024 9:32 AM CONSULTANT TECHNOLOGY Chronic myeloid leukemia (CMS/HCC) (HCC) from Last 3 Months Results * (ABNORMAL) BCR/ABL p210 Quantitative, PCR (02/19/2024 9:32 AM CONSULTANT TECHNOLOGY) BCR/ABL p210 Positive(A) [facility] BCR/ABL p210 % (IS) 0.38% [facility] BCR/ABL p210 Interpretation Positive: BCR::ABL1 major (p210) transcripts were detected. [facility] BCR/ABL p210 Specimen Blood [facility] BCR/ABL p210 Result Review Final report reviewed by: Bess Guy BA, MB([facility]) Block Out Machine Operator, on 02/20/2024 13:20:37 CONSULTANT TECHNOLOGY. [facility] Comment: Interpretive Data A summary of previous BCR::ABL1 major quantitative RT-PCR results for this patient performed in the [facility] Molecular Diagnostics Lab may be found as a cumulative laboratory report in the Results Review section of the Medical Record. Method: The quantitative BCR::ABL1 assay is performed on the [employer] ([employer]) platform. ??RNA is extracted, converted to cDNA, and BCR::ABL1 and ABL1 cDNA targets are quantified by real-time PCR amplification. Results are reported as the percentage ratio of BCR::ABL1 fusion transcripts to ABL1 transcripts (BCR::ABL1/ABL1) on the International Scale (Enedina HE, 2010). A BCR::ABL1 value of 0.1% on the International Scale represents a major molecular response in CML (Jackson S, 2008). The analytical sensitivity of this assay is 0.0032% BCR::ABL1/ABL1. ?? Due to assay non-linearity for the BCR::ABL1 p210 isoform at very high and low concentrations, results greater than 10% (above upper limit of quantification or ULOQ) will be reported as ? >10%? and results detected at less than 0.0032% (below lower limit of quantification or LLOQ) will be reported as ? <0.0032%? . Limitations: This test only detects the e13a2 and e14a2 BCR::ABL1 major isoforms. A negative result does not exclude the presence of the e1a2 (p190) BCR::ABL1 minor isoforms. False positive or negative results may occur with unusual BCR::ABL1 isoforms. FDA Comment: This test was developed and its performance characteristics determined by this Molecular Diagnostics Lab. Peripheral blood testing has been cleared by the U.S. Food and Drug Administration (FDA). Alternative specimen types, including extracted RNA or bone marrow aspirates have not been cleared or approved by the U.S. Food and Drug Administration. FDA does not require those modifications to go through premarket FDA review. This test is used for clinical purposes. It should not be regarded as investigational or for research. This laboratory is certified under the Clinical Laboratory Improvement Amendments (CLIA) as qualified to perform high complexity clinical laboratory testing. Literature References: Be S, Cleveland L, Marcus N, et al. Desirable performance characteristics for BCR-ABL measurement on an international reporting scale to allow consistent interpretation of individual patient response and comparison of response rate between clinical trials. Blood 2008;113:6308-4336. Enedina HE, Mónica P, Sabrina P, et al. Establishment of the first World Health Organization International Genetic Reference Panel for quantification of BCR-ABL mRNA. Blood 2010;116:h093-543. GeneXViewCast BCR-ABL V2 Package Insert [id number], Rev B (January 2016). Xpert BCR-ABL Monitor, [id number], Rev A, July 2010. This test was performed at: [facility], [facility], [facility]#[id number], Gisele Valencia, Ph.D., [place], [address], [place] Current interpretive data was last revised 2023. Blood 02/19/2024 9:32 AM CONSULTANT TECHNOLOGY 02/19/2024 11:27 AM CONSULTANT TECHNOLOGY Bess Perez NP LAB GENETIC TESTING Final Result Performing Organization Address City/State/[facility] Co vt Phone Number PAULA [facility] Department [place] [address] [facility] * (ABNORMAL) eGFR (02/19/2024 9:32 AM CONSULTANT TECHNOLOGY) eGFR 53(L) >=60 mL/min/1. 73 m2 Comment: Interpretive Data Reference Interval Normal ?>/= 90 mL/min/1.73m2 Mildly decreased* ? 60 - 89 mL/min/1.73m2 Mildly to moderately decreased ?45 - 59 mL/min/1.73m2 Moderately to severely decreased ??30 - 44 mL/min/1.73m2 Severely decreased ?15 - 29 mL/min/1.73m2 Kidney Failure ?< 15 ??mL/min/1.73m2 *Relative to young adult level Estimated glomerular filtration rate is determined by the 2020 CKD-EPI equation recommended by the National Kidney Foundation (A Unifying Approach to GFR Estimation: Recommendations of the NKF-ASK Task Force on Reassessing the Inclusion of Race in Diagnosing Kidney Disease, JASN 2020). The CKD-EPI equation should not be used for patients with unstable renal function and has not been validated in children and those over 70. Current interpretive data was last reviewed 2021. Blood 02/19/2024 9:32 AM CONSULTANT TECHNOLOGY 02/19/2024 10:01 AM CONSULTANT TECHNOLOGY us Bess Perez NP LAB BLOOD ORDERABLES Meka l Result PAULA LOVE [facility] Department [place] [address] * Differential, auto (02/19/2024 9:32 AM CONSULTANT TECHNOLOGY) Neutrophil abs 3.8 1.5 - 6.5 K/cumm Comment:Testing performed by : [facility]e [facility], [facility] [place] [address] Lymphocyte abs 1.2 0.8 - 3.3 K/cumm PAULA LOVE Comment:Testing performed by : [facility], [address] [place] [phone] Monocyte abs 0.7 0.2 - 0.8 K/cumm PAULA LOVE Comment:Testing performed by : [facility], [address] [place] [phone] Eosinophil abs 0.1 0.0 - 0.5 K/cumm [facility] Comment:Testing performed by : [facility], [address] [place] [phone] Basophil abs 0.0 0.0 - 0.1 K/cumm [facility] Comment:Testing performed by : [facility], [address] [place] [phone] Neutrophil pct 64.2 % [facility] Comment: Interpretive Data Percent cell count reference ranges are not reported, since discordance with absolute values may lead to misinterpretation of CBC data. Current Interpretive Data was last revised on 2017. Testing performed by: [facility], [address] [place] [phone] Lymphocyte pct 20.2 % CERNER [facility] Comment: Interpretive Data Percent cell count reference ranges are not reported, since discordance with absolute values may lead to misinterpretation of CBC data. Current Interpretive Data was last revised on 2017. Testing performed by: [facility], [address] [place] [phone] Monocyte pct 12.6 % CERNER [facility] Comment: Interpretive Data Percent cell count reference ranges are not reported, since discordance with absolute values may lead to misinterpretation of CBC data. Current Interpretive Data was last revised on 2017. Testing performed by: [facility], [address] [place] [phone] Eosinophil pct 2.3 % [facility] Comment: Interpretive Data Percent cell count reference ranges are not reported, since discordance with absolute values may lead to misinterpretation of CBC data. Current Interpretive Data was last revised on 2017. Testing performed by: [facility], [address] [place] [phone] Basophil pct 0.7 % [facility] Comment: Interpretive Data Percent cell count reference ranges are not reported, since discordance with absolute values may lead to misinterpretation of CBC data. Current Interpretive Data was last revised on 2017. Testing performed by: [facility], [address] [place] [phone] Blood 02/19/2024 9:32 AM CONSULTANT TECHNOLOGY 02/19/2024 9:57 AM CONSULTANT TECHNOLOGY us Bess Perez SUEDING MACHINE TENDER LAB BLOOD ORDERABLES Meka merrick Result PAULA LOVE [facility] Department [place] [address] * (ABNORMAL) CBC with auto differential (02/19/2024 9:32 AM CONSULTANT TECHNOLOGY) WBC 5.9 3.8 - 9.9 K/cumm Comment:Testing performed by : [facility], [address] [place] [address] Hgb 13.1 11.9 - 15.5 g/dL PAULA LOVE Comment:Testing performed by : [facility], [address] [place] [address] Hct 40.5 35.6 - 45.5 % PAULA LOVE Comment:Testing performed by : [facility], [address] [place] [address] Plt 197 150 - 400 K/cumm PAULA LOVE Comment:Testing performed by : [facility], [address] [place] [address] MPV 6.6(L) 6.8 - 10.4 fL PAULA LOVE Comment:Testing performed by : [facility], [address] [place] [address] RBC 4.05 3.90 - 5.20 M/cumm PAULA LOVE Comment:Testing performed by : [facility], [address] [place] [address] MCV 99.8(H) 81.3 - 96.4 fL PAULA LOVE Comment:Testing performed by : [facility], [address] [place] [address] MCH 32.2 27.1 - 33.3 pg CERYONNY LOVE Comment:Testing performed by : [facility], [address] [place] [address] MCHC 32.2(L) 32.3 - 35.7 g/dL [facility] Comment:Testing performed by : [facility], [address] [place] [phone] RDW CV 14.1 11.1 - 14.9 % [facility] Comment:Testing performed by : [facility], [address] [place] [phone] NRBC abs 0.00 0.00 - 0.01 K/cumm [facility] Comment:Testing performed by : [facility], [address] [place] [phone] Blood 02/19/2024 9:32 AM CONSULTANT TECHNOLOGY 02/19/2024 9:57 AM CONSULTANT TECHNOLOGY Bess Perez SUEDING MACHINE TENDER LAB BLOOD ORDERABLES Meka l Result Performing Organization Address [facility] Co de Phone Number [facility] [place] [address] * Lactate dehydrogenase (LD) (02/19/2024 9:32 AM CONSULTANT TECHNOLOGY) [facility] Lactate dehydrogenase (LDH) 161 100 - 250 Units/L Blood 02/19/2024 9:32 AM CONSULTANT TECHNOLOGY 02/19/2024 10:01 AM CONSULTANT TECHNOLOGY Bess Perez SUEDING MACHINE TENDER LAB BLOOD ORDERABLES Meka l Result Performing Organization Address City/[facility] [place] [address] * Comprehensive metabolic panel (02/19/2024 9:32 AM CONSULTANT TECHNOLOGY) Pathologist [facility] Sodium 142 135 - 145 mmol/L Potassium, pl 4.3 3.3 - 4.9 mmol/L [facility] Chloride 104 97 - 110 mmol/L [facility] CO2 32 22 - 32 mmol/L [facility] Anion gap 6 2 - 15 mmol/L [facility] BUN 15 6 - 25 mg/dL [facility] Creatinine 1.07 0.60 - 1.10 mg/dL [facility] Glucose 86 70 - 199 mg/dL [facility] Comment: Interpretive Data Fasting glucose >/= 126 mg/dl is diagnostic for diabetes. ?? Fasting is defined as no caloric intake for at least 8 hours. Fasting glucose between 100 mg/dl to 125 mg/dl is diagnostic of prediabetes. In a patient with classic symptoms of hyperglycemia or hyperglycemic crisis, a random glucose >/= 200 mg/dl is diagnostic for diabetes. In the absence of unequivocal hyperglycemia, results should be confirmed by repeat testing. The classification and Diagnosis of Diabetes Diabetes Care 202; 46: S19-S40. Current interpretive data was last revised 2022. Calcium 9.8 8.5 - 10.3 mg/dL [facility] Bilirubin, total 0.4 0.1 - 1.2 mg/dL [facility] Protein, pl 7.3 6.5 - 8.5 g/dL [facility] Albumin 4.3 3.5 - 5.0 g/dL [facility] Alk phos 117 40 - 130 Units/L [facility] ALT 15 7 - 45 Units/L [facility] AST 22 10 - 45 Units/L [facility] Blood 02/19/2024 9:32 AM CONSULTANT TECHNOLOGY 02/19/2024 10:01 AM CONSULTANT TECHNOLOGY Bess Perez NP LAB BLOOD ORDERABLES Meka sin Result [facility] Department [place] [address] from Last 3 Months Insurance MEDICARE COMMERCIAL GENERIC MEDICARE COMMERCIAL GENERIC MEDICARE COMMERCIAL GENERIC Care Teams Travel Director Relationship Specialty Start Date End Date Ravinder Roblero II, MD PCP - General Family Practice 06/27/22
--- OUTSIDE RECORDS SUMMARY | 2024-04-15 14:06 | XMS_ITS | Encounter Summary ---
Author Organization [facility] Address [facility] [place] [address] [place] [address] Care Team Providers Care Market Investigator Name Role Phone Osbaldo POE MD, Ravinder Rubalcava Primary Care Provider Janet Rushing RN Unavailable [phone] Encounter Details Date Type Department Care Team (Late st Contact Info) Description 02/07/2022 Champion Windowst Message Enc [facility] Family Medicine - [employer] [address] [place] [address] Ravinder Roblero II, MD [address] [place], [place] [phone] Blood work prior to Mar 07 Appt. Social History Tobacco Use Types Packs/Day Years Used Date Smoking Tobacco: Former Cigarettes Q uit: 1977 Smokeless Tobacco: Never Alcohol Use Standard Drinks/Week Comments Not Currently 0 (1 standard drink = 0.6 oz pur e alcohol) PHQ-2 Answer Date Recorded PHQ-2 Score - If the patient scores above 3, please move on to questions 3-9 1 12/02/2021 Comments No Sex and Gender Information Value Date Recorded Sex Assigned at Female 04/07/2024 2:01 AM WELL LOGGING MUD ANALYSIS CAPTAIN Legal Sex Female 6:39 PM CDT Gender Identity Female 04/13/2021 4:55 PM WELL LOGGING MUD ANALYSIS CAPTAIN Sexual Orientation Straight 04/13/2021 4: 55 PM WELL LOGGING MUD ANALYSIS CAPTAIN documented as of this encounter Plan of Treatment Upcoming Encounters Date Type Department Care Team (Late st Contact Info) Description 07/01/2024 9:50 AM CDT Office Visit [facility] Family Medicine - [employer] [address] [place] [address] Ravinder Roblero II, MD [address] [place] [address] documented as of this encounter Visit Diagnoses Not on filedocumented in this encounter Additional Health Concerns Assessment Noted Time PHQ-9 Depression Total Score: 1 12/03/19 22 3:11 PM CDT documented as of this encounter Care Teams Market Investigator Relationship Specialty Start Date End Date Ravinder Roblero II, MD [address] [place] [address] PCP - General FAMILY PRACTICE 11/27/21 Janet Rushing, RN [address] [facility] [address] [place] [address] Registered Nurse CARE MANAGEMENT 01/22/24 01/31/24 documented as of this encounter
--- OUTSIDE RECORDS SUMMARY | 2024-04-15 14:06 | XMS_ITS | Encounter Summary ---
Author Organization [facility] - [facility] Address [facility] [place] [address] [place] [address] Care Team Providers Care Ict Teacher Name Role Phone Barrington Mahan MD Primary Care Provider Chiki Roblero II, MD, Ravinder Rubalcava Primary Care Provider Janet Rushing RN Unavailable [phone] Encounter Details Date Type Department Care Team (Late st Contact Info) Description 04/16/2021 [facility] Medical Group Family Medicine - [place] [address] [place] [address] Lindsey Burkett MA Social History Tobacco Use Types Packs/Day Years Used Date Smoking Tobacco: Former Cigarettes Q uit: 1977 Smokeless Tobacco: Never Alcohol Use Standard Drinks/Week Comments Not Currently 0 (1 standard drink = 0.6 oz pur e alcohol) PHQ-2 Answer Date Recorded PHQ-2 Score - If the patient scores above 3, please move on to questions 3-9 0 12/03/2020 Comments No Sex and Gender Information Value Date Recorded Sex Assigned at Female 04/07/2024 2:01 AM CATERING MANAGER Legal Sex Female 6:39 PM CDT Gender Identity Female 04/13/2021 4:55 PM CATERING MANAGER Sexual Orientation Straight 04/13/2021 4: 55 PM CATERING MANAGER COVID-19 Exposure Response Date Recorded In the last month, have you been in contact with someone who was confirmed or suspected to have Coronavirus / COVID-19? No / Unsure 04/16/2021 12:18 PM CATERING MANAGER documented as of this encounter Plan of Treatment Upcoming Encounters Date Type Department Care Team (Late st Contact Info) Description 07/01/2024 9:50 AM CDT Office Visit [facility] Medical Group Family Medicine - [place] [address] [place] [address] Ravinder Roblero II, MD [address] [place] [address] documented as of this encounter Visit Diagnoses Not on filedocumented in this encounter Additional Health Concerns Assessment Noted Time PHQ-9 Depression Total Score: 0 12/04/19 21 11:29 AM CDT documented as of this encounter Care Teams Ict Teacher Relationship Specialty Start Date End Date Barrington Mahan MD PCP - General FAMILY PRACTICE 02/11/19 11/26/21 Ravinder Roblero II, MD [address] [place] [address] PCP - General FAMILY PRACTICE 11/27/21 Janet Rushing, RN [address] [facility] [address] [place] [address] Registered Nurse CARE MANAGEMENT 01/22/24 01/31/24 documented as of this encounter
--- OUTSIDE RECORDS SUMMARY | 2024-04-15 14:06 | XMS_ITS | Referral Summary ---
Author Organization [facility] Medical [facility] [address] [place] [phone] Care Team Providers Care Earring Maker Name Role Phone Osbaldo POE MD, Ravinder Edward Primary Care Provid er Encounters Date Type Department Care Team Description 04/08/2024 Telephone [facility] Medical Group Cardiology [address] [place] [phone] Jacob Mckenna MD 04/05/2024 Telephone [facility] Medical [facility] Cardiology [address] [place] [address] Jacob Mckenna MD Leg Swelling; nerve pain and burning; Hypertension 03/05/2024 8:30 AM ENTRY LEVEL SALES ASSOCIATE Procedure visit [facility] Otolaryngology [address] [place] [address] Tess Hunter 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 Cancer [place] - Lab Collection [address] [facility] Floor 6 [place] [address] Chronic myeloid leukemia (CMS/HCC) (HCC) 02/19/2024 10:30 AM ENTRY LEVEL SALES ASSOCIATE Office Visit [facility] Bone Marrow Transplant [address] [place] [phone] Jameson Cameron MD PhD Chronic myeloid leukemia (CMS/HCC) (HCC) (Primary Dx) 02/19/2024 9:30 AM ENTRY LEVEL SALES ASSOCIATE Lab [facility] Oncology Lab [address] [place] [phone] Chronic myeloid leukemia (CMS/HCC) (HCC) 02/06/2024 2:30 PM ENTRY LEVEL SALES ASSOCIATE Office Visit [facility] Medical Group Cardiology [address] [place] [address] Carmen Mcconnell NP Essential hypertension (Primary Dx); 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) (HCC); Hospital discharge follow-up 01/23/2024 Telephone [facility] Medical [facility] Cardiology [address] [facility] [address] [place] [address] Jacob Mckenna MD from Last 3 Months Allergies Active Allergy Reactions Criticality Noted Date Comments Sulfa (Sulfonamide Antibiotics) Hives Medium 10/2010 Medications multivit-hard rock miner als/ferrous fum (MULTI VITAMIN ORAL)Indicatio ns:CML (chronic myelocytic leukemia) (CMS/HCC) (FORM[facility]) daily. Active aspirin 81 mg enteric coated [...] lung 08/21/2018 Chronic myeloid leukemia (CMS/HCC) 01/24/2014 Immunizations Name Administration Dates Next Due Influenza, Quadrivalent, Hig h Dose, Preservative Free, Intrr 01/09/2023,12/25/2020 Influenza, Trivalent, IM (MDV) 01/09/2014 Influenza, Unspecified 01/22/2022 Moderna SARS-CoV-2 Monovalent Vaccination (12+ Y RS) 05/21/2020,04/23/2020 Pfizer SARS-CoV-2 Monovalent Vaccination (12+ Yrs) PURPLE 02/18/2021 Pfizer Sars-Cov-2 Bivalent Vaccination (12+ YRS) 01/12/2022 Social History Tobacco Use Types Packs/Day Years [...] on file Legal Sex Female 3:14 AM ENTRY LEVEL SALES ASSOCIATE Gender Identity Not on file Sexual Orientation Straight 02/25/2019 6: 42 PM ENTRY LEVEL SALES ASSOCIATE Last Filed Vital Signs Vital Sign Reading Time Taken Comments Blood Pressure 137/86 02/19/2024 10:53 AM ENTRY LEVEL SALES ASSOCIATE Pulse 74 02/19/2024 10:53 AM ENTRY LEVEL SALES ASSOCIATE Temperature 36.6 ??C (97.8 ??F) 02/19/2024 10:[address] Respiratory Rate 18 03/05/2024 8:46 AM ENTRY LEVEL SALES ASSOCIATE Oxygen Saturation 98% 02/19/2024 10:53 AM ENTRY LEVEL SALES ASSOCIATE Inhaled Oxygen Concentration - - Weight 60.3 kg (133 lb) 03/05/2024 8:46 AM ENTRY LEVEL SALES ASSOCIATE Height 152.4 cm (5') 03/05/2024 8:46 AM ENTRY LEVEL SALES ASSOCIATE Body Mass Index 25.97 03/05/2024 8:46 AM ENTRY LEVEL SALES ASSOCIATE Plan of Treatment Not on file Procedures Procedure Name Priority Date/Time Associated Diagnosis Comments EGFR Routine 02/19/2024 9:32 AM ENTRY LEVEL SALES ASSOCIATE Chronic myeloid leukemia (CMS/HCC) (HCC) DIFFERENTIAL AUTO Routine 02/19/2024 9:3 2 AM ENTRY LEVEL SALES ASSOCIATE Chronic myeloid leukemia (CMS/HCC) (HCC) CBC WITH AUTO DIFFERENTIAL Routine 02/19/2024 9:32 AM ENTRY LEVEL SALES ASSOCIATE Chronic myeloid leukemia (CMS/HCC) (HCC) COMPREHENSIVE METABOLIC PANEL Routine 02/19/2024 9:32 AM ENTRY LEVEL SALES ASSOCIATE Chronic myeloid leukemia (CMS/HCC) (HCC) LACTATE DEHYDROGENASE Routine 02/19/2024 9:32 AM ENTRY LEVEL SALES ASSOCIATE Chronic myeloid leukemia (CMS/HCC) (HCC) BCR/ABL P210 QUANTITATIVE, PCR Routine 02/19/2024 9:32 AM ENTRY LEVEL SALES ASSOCIATE Chronic myeloid leukemia (CMS/HCC) (HCC) from Last 3 Months Results * (ABNORMAL) BCR/ABL p210 Quantitative, PCR (02/19/2024 9:32 AM ENTRY LEVEL SALES ASSOCIATE) Pathologist [facility] BCR/ABL p210 Positive(A) [facility] BCR/ABL p210 % (IS) 0.38% [facility] BCR/ABL p210 Interpretation Positive: BCR::ABL1 major (p210) transcripts were detected. [facility] BCR/ABL p210 Specimen Blood [facility] BCR/ABL p210 Result Review Final report reviewed by: Bess Guy BA, LILIA([facility]) Acupressurist, on 02/20/2024 13:20:37 ENTRY LEVEL SALES ASSOCIATE. [facility] Comment: Interpretive Data A summary of previous BCR::ABL1 major quantitative RT-PCR results for this patient performed in the [facility] Molecular Diagnostics Lab may be found as a cumulative laboratory report in the Results Review section of the Medical Record. Method: The quantitative BCR::ABL1 assay is performed on the GeneXpert (Breather) platform. ??RNA is extracted, converted to cDNA, and BCR::ABL1 and ABL1 cDNA targets are quantified by real-time PCR amplification. Results are reported as the percentage ratio of BCR::ABL1 fusion transcripts to ABL1 transcripts (BCR::ABL1/ABL1) on the International Scale (White HE, 2010). A BCR::ABL1 value of 0.1% on the International Scale represents a major molecular response in CML (Huntland S, 2008). The analytical sensitivity of this [...] of response rate between clinical trials. Blood 2008;113:7965-3481. Enedina HE, Mónica P, Sabrina P, et al. Establishment of the first World Health Organization International Genetic Reference Panel for quantification of BCR-ABL mRNA. Blood 2010;116:d682-058. GeneXpert BCR-ABL V2 Package Insert [id number], Rev B (January 2016). Xpert BCR-ABL Monitor, [id number], Rev A, July 2010. This test was performed at: [facility], [facility], [facility]#[id number], Gisele Valencia, Ph.D., [place], [address], [place] Current interpretive data was last revised 2023. Blood 02/19/2024 9:32 AM ENTRY LEVEL SALES ASSOCIATE 02/19/2024 11:27 AM ENTRY LEVEL SALES ASSOCIATE us Bess Perez NP LAB GENETIC TESTING Final Result PAULA [facility] Department [place] [address] [facility] * (ABNORMAL) eGFR (02/19/2024 9:32 AM ENTRY LEVEL SALES ASSOCIATE) eGFR 53(L) >=60 mL/min/1. 73 m2 Comment: [...] last reviewed 2021. Blood 02/19/2024 9:32 AM ENTRY LEVEL SALES ASSOCIATE 02/19/2024 10:01 AM ENTRY LEVEL SALES ASSOCIATE us Bess Perez FISCAL SPECIALIST LAB BLOOD ORDERABLES Meka l Result PAULA [facility] Department [place] [address] * Differential, auto (02/19/2024 9:32 AM ENTRY LEVEL SALES ASSOCIATE) Neutrophil abs 3.8 1.5 - 6.5 K/cumm Comment:Testing performed by : [facility], [address] [place] [phone] Lymphocyte abs 1.2 0.8 - 3.3 K/cumm [facility] Comment:Testing performed by : [facility], [address] [place] [phone] Monocyte abs 0.7 0.2 - 0.8 K/cumm [facility] Comment:Testing performed by : [facility], [address] [place], [place] [phone] Eosinophil abs 0.1 0.0 - 0.5 K/cumm [facility] Comment:Testing performed by : [facility], [address] [place] [phone] Basophil abs 0.0 0.0 - 0.1 K/cumm [facility] Comment:Testing performed by : [facility], [address] [place] [phone] Neutrophil pct 64.2 % [facility] Comment: Interpretive Data Percent cell count reference ranges are not reported, since discordance with absolute values may lead to misinterpretation of CBC data. Current Interpretive Data was last revised on 2017. Testing performed by: [facility], [address] [place] [phone] Lymphocyte pct 20.2 % [facility] Comment: Interpretive Data Percent cell count reference ranges are not reported, since discordance with absolute values may lead to misinterpretation of CBC data. Current Interpretive Data was last revised on 2017. Testing performed by: [facility], [address] [place] [phone] Monocyte pct 12.6 % [facility] Comment: Interpretive Data Percent cell count reference ranges are not reported, since discordance with absolute values may lead to misinterpretation of CBC data. Current Interpretive Data was last revised on 2017. Testing performed by: [facility], [address] [place] [phone] Eosinophil pct 2.3 % [facility] Comment: Interpretive Data Percent cell count reference ranges are not reported, since discordance with absolute values may lead to misinterpretation of CBC data. Current Interpretive Data was last revised on 2017. Testing performed by: [facility], [address] [place] [phone] Basophil pct 0.7 % CERYONNY [facility] Comment: Interpretive Data Percent cell count reference ranges are not reported, since discordance with absolute values may lead to misinterpretation of CBC data. Current Interpretive Data was last revised on 2017. Testing performed by: [facility], [address] [place] [phone] Blood 02/19/2024 9:32 AM ENTRY LEVEL SALES ASSOCIATE 02/19/2024 9:57 AM ENTRY LEVEL SALES ASSOCIATE Bess Perez NP LAB BLOOD ORDERABLES Meka sin Result PAULA [facility] Department [place] [address] * (ABNORMAL) CBC with auto differential (02/19/2024 9:32 AM ENTRY LEVEL SALES ASSOCIATE) WBC 5.9 3.8 - 9.9 K/cumm Comment:Testing performed by : [facility], [address] [place] [address] Hgb 13.1 11.9 - 15.5 g/dL PAULA LOVE Comment:Testing performed by : [facility], [address] [place] [address] Hct 40.5 35.6 - 45.5 % PAULA LOVE Comment:Testing performed by : [facility], [address] [place] [address] Plt 197 150 - 400 K/cumm CERYONNY [facility] Comment:Testing performed by : [facility], [address] [place] [address] MPV 6.6(L) 6.8 - 10.4 fL CERYONNY [facility] Comment:Testing performed by : [facility], [address] [place] [address] RBC 4.05 3.90 - 5.20 M/cumm PAULA LOVE Comment:Testing performed by : [facility], [address] [place] [address] MCV 99.8(H) 81.3 - 96.4 fL PAULA LOVE Comment:Testing performed by : [facility], [address] [place], [place] [phone] MCH 32.2 27.1 - 33.3 pg PAULA LOVE Comment:Testing performed by : [facility], [address] [place] [address] MCHC 32.2(L) 32.3 - 35.7 g/dL PAULA LOVE Comment:Testing performed by : [facility], [address] [place] [address] RDW CV 14.1 11.1 - 14.9 % PAULA LOVE Comment:Testing performed by : [facility], [address] [place] [address] NRBC abs 0.00 0.00 - 0.01 K/cumm PAULA [facility] Comment:Testing performed by : [facility], [address] [place] [address] Blood 02/19/2024 9:32 AM ENTRY LEVEL SALES ASSOCIATE 02/19/2024 9:57 AM ENTRY LEVEL SALES ASSOCIATE us Bess Perez FISCAL SPECIALIST LAB BLOOD ORDERABLES Meka l Result Performing Organization Address [facility] Co de Phone Number [facility] Department [place] [address] * Lactate dehydrogenase (LD) (02/19/2024 9:32 AM ENTRY LEVEL SALES ASSOCIATE) Lactate dehydrogenase (LDH) 161 100 - 250 Units/L Blood 02/19/2024 9:32 AM ENTRY LEVEL SALES ASSOCIATE 02/19/2024 10:01 AM ENTRY LEVEL SALES ASSOCIATE Bess Perez FISCAL SPECIALIST LAB BLOOD ORDERABLES Meka l Result Performing Organization Address [facility] Co de Phone Number [facility] Department [place] [address] * Comprehensive metabolic panel (02/19/2024 9:32 AM ENTRY LEVEL SALES ASSOCIATE) Sodium 142 135 - 145 mmol/L Potassium, pl 4.3 3.3 - 4.9 mmol/L [facility] Chloride 104 97 - 110 mmol/L [facility] CO2 32 22 - 32 mmol/L [facility] Anion gap 6 2 - 15 mmol/L [facility] BUN 15 6 - 25 mg/dL [facility] Creatinine 1.07 0.60 - 1.10 mg/dL [facility] Glucose 86 70 - 199 mg/dL [facility] Comment: Interpretive Data Fasting glucose [...] 2022. Calcium 9.8 8.5 - 10.3 mg/dL [facility] Bilirubin, total 0.4 0.1 - 1.2 mg/dL [facility] Protein, pl 7.3 6.5 - 8.5 g/dL [facility] Albumin 4.3 3.5 - 5.0 g/dL [facility] Alk phos 117 40 - 130 Units/L [facility] ALT 15 7 - 45 Units/L [facility] AST 22 10 - 45 Units/L [facility] Blood 02/19/2024 9:32 AM ENTRY LEVEL SALES ASSOCIATE 02/19/2024 10:01 AM ENTRY LEVEL SALES ASSOCIATE us Bess Perez NP LAB BLOOD ORDERABLES Meka merrick Result [facility] [place] [address] from Last 3 Months Insurance MEDICARE COMMERCIAL GENERIC MEDICARE COMMERCIAL GENERIC MEDICARE COMMERCIAL GENERIC Care Teams Earring Maker Relationship Specialty Start Date End Date Ravinder Roblero II, MD PCP - General Family Practice 06/27/22
--- OUTSIDE RECORDS SUMMARY | 2024-04-15 14:06 | XMS_ITS ---
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 hearing of right ear 03/05/2024 Dysfunction of left eustachian tube 03/05/2024 Bilateral carotid artery stenosis 03/17/2020 Shortness of breath 09/11/2019 Essential hypertension 03/18/2019 LVH (left ventricular hypertrophy) 08/21/2018 Emphysema of lung 08/21/2018 Chronic myeloid leukemia (CMS/HCC) 01/24/2014 Current Oncology Plans Asciminib - 28 Day Cycles - CML* Plan Start Date:07/29/2021 Plan Provider:Jameson Cameron MD PhD Linked Problems Chronic myeloid leukemia (CM S/HCC) (HCC) Treatment Medications Current Day (Day 1, Cycle 3 - Planned for 10/13/2021) asciminib (SCEMBLIX) asciminib (SCEMBLIX) 40 mg tablet Past Plans Oncology Chemotherapy Treatment Plan Name Start Date Discontinue Date Treatment Medications Discontinue Reason Plan Provider Cycles Ponatinib Daily - 28 Day Cycles - CML or Ph+ ALL 9 09/14/2021 PONATinib (ICLUSIG) Therapy Complete Jameson Cameron MD PhD Treatment not started Bosutinib PO Daily - CML 8 07/18/2018 bosutinib (BOSULIF) Therapy Complete Jameson Cameron MD PhD Treatment not started Oncology Treatment (2) Plan Name Start Date Discontinue Date Treatment Medications Discontinue Reason Plan Provider Cycles [id number] - [facility] - 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 Patient Preference Jameson Cameron MD PhD Treatment not started Radiation Treatments * No radiation treatments are documented for this patient in [facility]. Treatments may have been administered in another system. Lifetime Dose Tracking * Chemical Lifetime Dose Automatic Entry Manual Entr y DLP 2,173 mGycm 2,173 mGycm 0 mGycm
--- OUTSIDE RECORDS SUMMARY | 2024-04-15 14:06 | XMS_ITS | Encounter Summary ---
Author Organization [facility] Healthcare Address [address] [place] [address] Care Team Providers Care Pharmacist In Charge Owner Name Role Phone Osbaldo POE MD, Ravinder Leon Primary Care Provid er Encounter Details Date Type Department Care Team (Late st Contact Info) Description 04/08/2024 Telephone [facility] Medical Group Cardiology [address] [place] [address] Jacob Mckenna MD [address] [id number] Social History Tobacco Use Types Packs/Day Years [...] on file Legal Sex Female 3:14 AM COMMISSION AUDITOR Gender Identity Not on file Sexual Orientation Straight 02/25/2019 6: 42 PM COMMISSION AUDITOR documented as of this encounter Ordered Prescriptions Prescription Sig Dispense Quantity Refills Last Filled Start Date End Date lisinopriL (PRINIVIL,ZESTRIL) 40 mg tablet Take 1 tablet (40 mg total) by mouth nightly 30 tablet 3 04/08/2024 documented in this encounter Miscellaneous Notes * Telephone Encounter - Sherley Ackerman MA - 04/08/2024 3:20 PM COMMISSION AUDITOR Sent lisinopril 40mg script to [facility] as requested. ISSION AUDITOR * Telephone Encounter - Jody Hemphill - 04/08/2024 2:21 PM CST Patient requesting refill for Lisinopril 40 mg with 30 day supply. Please send to [facility] in [place]. Thank you. Contact: ISSION AUDITOR documented in this encounter Plan of Treatment Not on file documented as of this encounter Visit Diagnoses Not on filedocumented in this encounter Discontinued Medications Medication Sig Discontinue Reason Start Date End Da te lisinopriL (PRINIVIL,ZESTRIL) 40 mg tablet Take 1 tablet (40 mg total) by mouth nightly Reorder 01/22/2024 04/08/2024 documented as of this encounter Care Teams Pharmacist In Charge Owner Relationship Specialty Start Date End Date Ravinder Roblero II, MD PCP - General Family Practice 06/27/22 documented as of this encounter
--- OUTSIDE RECORDS SUMMARY | 2024-04-15 14:06 | XMS_ITS | Encounter Summary ---
Author Organization [facility] [employer] [facility] Address [address] [place] [address] Phone Care Team Providers Care Machine Folder Name Role Phone Paul Clarke MD Primary Care Provider Barrington Mahan MD Primary Care Provider [phone]- [phone] Osbaldo POE MD, Ravinder Leon Primary Care Provid er Encounter Details Date Type Department Care Team (Latest Contact Info) Description 02/22/2017 Orders Only [facility] Scanning, Provider Social History Tobacco Use Types Packs/Day Years Used Date Smoking Tobacco: Never Assessed Comments Unknown Sex and Gender Information Value Date Recorded Sex Assigned at Not on file Legal Sex Female 3:14 AM DELIVERY TECH Gender Identity Not on file Sexual Orientation Straight 02/25/2019 6: 42 PM DELIVERY TECH documented as of this encounter Plan of Treatment Not on file documented as of this encounter Procedures Procedure Name Priority Date/Time Associated Diagnosis Comments CARDIOLOGY DOCUMENT SCAN 02/22/2017 documented in this encounter Results * SCAN - CARDIOLOGY (02/22/2017) Anatomical Region Laterality Modality Other us Provider Scanning CV CARDIAC SERVICES PROCEDURES Edited Result - Final documented in this encounter Visit Diagnoses Not on filedocumented in this encounter Care Teams Machine Folder Relationship Specialty Start Date End Date Paul Clarke MD [address] [address] PCP - General 02/22/17 03/17/19 Barrington Mahan MD [address] [place], [place] [id number] PCP - General Family Medicine 03/18/19 06/26/22 Ravinder Roblero II, MD [address] [place], [place] [phone] PCP - General Family Practice 06/27/22 documented as of this encounter
--- OUTSIDE RECORDS SUMMARY | 2024-04-15 14:06 | XMS_ITS | Encounter Summary ---
Author Organization [facility] Address [address] [place] [address] Care Team Providers Care Plumbing And Heating Mechanic Name Role Phone Paul Clarke MD Primary Care Provider [phone] Barrington Mahan MD Primary Care Provider [phone] Osbaldo POE MD, Ravinder Leon Primary Care Provid er Encounter Details Date Type Department Care Team (Late st Contact Info) Description 03/04/2019 Telephone [facility] [address] [place] [address] Sukhdev Tolbert, RT Social History Tobacco Use Types Packs/Day Years Used Date Smoking Tobacco: Former Smokeless Tobacco: Never Alcohol Use Standard Drinks/Week [...] on file Legal Sex Female 3:14 AM FURNACE ERECTOR Gender Identity Not on file Sexual Orientation Straight 02/25/2019 6: 42 PM FURNACE ERECTOR documented as of this encounter Plan of Treatment Not on file documented as of this encounter Visit Diagnoses Not on filedocumented in this encounter Care Teams Plumbing And Heating Mechanic Relationship Specialty Start Date End Date Paul Clarke MD [address] [place] [address] PCP - General 02/22/17 03/17/19 Barrington Mahan MD [address] [place], [place] [id number] PCP - General Family Medicine 03/18/19 06/26/22 Ravinder Roblero II, MD [address] [place] [address] PCP - General Family Practice 06/27/22 documented as of this encounter
[2024-04-15 14:20] LABS: Anion Gap 10 mmol/L (4-12); Blood Urea Nitrogen 24 mg/dL (7-17); Calcium 9.3 mg/dL (8.4-10.2); Carbon Dioxide 28 mmol/L (22-30); Chloride 99 mmol/L (98-107); Estimated Glomerular Filt Rate 55; Glucose 87 mg/dL (65-110); Potassium 4.5 mmol/L (3.4-5.0); Sodium 137 mmol/L (137-145)
== END 2024-04-15 13:23 | disposition home or self-care (01) ==
PROVIDERS: Visit Provider Internal Medicine Cardiovascular Disease
DX: I11.9 Hypertensive heart disease without heart failure (principal)
CPT/HCPCS: 36415; 80048

== ENCOUNTER 2024-05-02 12:53 | Outpatient (CLI) | payer MEDICARE, SELFPAY ==
--- NOTE | ~2024-05-02 | US_ITS ---
EXAMINATION: US venous doppler LE RT DATE: 05/02/2024 13:22 INDICATION: Lower limb edema. TECHNIQUE: Grayscale ultrasound images without and with compression and Doppler ultrasound images of the right lower extremity veins were obtained. COMPARISON: None. FINDINGS: The visualized portions of right common femoral vein, profunda (deep) femoral vein, femoral vein, pop liteal vein, peroneal veins, posterior tibial veins, and greater saphenous vein outflow are patent. IMPRESSION: 1. No deep venous thrombosis. Reviewed, dictated and finalized at location A. DRIVER
--- OUTSIDE RECORDS SUMMARY | 2024-05-02 13:00 | XMS_ITS ---
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 Patient Preference Jameson Cameron MD PhD Treatment not started Radiation Treatments * No radiation treatments are documented for this patient in [facility]. Treatments may have been administered in another system. Lifetime Dose Tracking * Chemical Lifetime Dose Automatic Entry Manual Entr y DLP 2,173 mGycm 2,173 mGycm 0 mGycm
--- OUTSIDE RECORDS SUMMARY | 2024-05-02 13:00 | XMS_ITS | Clinical Summary ---
Author Organization [facility] Address [address] [place] [address] Care Team Providers Care Chimney Repairer Name Role Phone Osbaldo POE MD, Ravinder [...] total) by mouth daily. 90 tablet 3 Active Active Problems Problem Noted Date Diagnosed [...] Department Care Team Description 04/07/2024 1:44 AM BEHAVIORAL HEALTH TECHNICIAN - 04/07/2024 4:27 AM BEHAVIORAL HEALTH TECHNICIAN Emergency [facility] [place] [address] Óscar Olguin MD,PHD Hypertension Discharge Disposition: Home or Self Care (Routine Discharge) 04/07/2024 Travel 02/20/2024 4:40 PM BEHAVIORAL HEALTH TECHNICIAN Office Visit [address] [phone] Ravinder Roblero II, MD Earache (Patient presents to discuss left ear pain) 02/20/2024 Travel 02/16/[address] [phone] Ravinder Roblero II, MD Advice 02/01/2024 Patient Outreach [address] [phone] Janet Rushing, RN Hospital Follow Up (F/u wk 1) from Last 3 Months Immunizations Name Administration [...] Tobacco: Former Cigarettes 0.5 15 Q uit: 1978 Smokeless Tobacco: Never Tobacco Cessation:Counseling Given: No Alcohol Use Standard Drinks/Week Comments Never 0 (1 standard drink = 0.6 oz pur e alcohol) [facility] [employer] Answer Date Recorded In the past 12 months has e [employer], gas, oil, or water [employer] threatened to shut off services in your [...] week 01/21/2024 How often do you attend chur ch or anglican services? More than 4 times per year 01/21/2024 Do you belong to any clubs o r organizations such as spiritism groups, unions, fraternal or athletic groups, or [...] Recorded Patient Health Questionnaire-2 Score 0 07/18/2023 [facility] - Occupational Stress Questionnaire Answer Date Recorded [...] any time in the past 12 m [facility], were you homeless or living in a residential (including now)? No 01/21/2024 Comments No Sex and Gender Information Value Date Recorded Sex Assigned at Female 04/07/2024 2:01 AM BEHAVIORAL HEALTH TECHNICIAN Legal Sex Female 6:39 PM CDT Gender Identity Female 04/13/2021 4:55 PM BEHAVIORAL HEALTH TECHNICIAN Sexual Orientation Straight 04/13/2021 4: 55 PM BEHAVIORAL HEALTH TECHNICIAN Last Filed Vital Signs Vital Sign Reading Time Taken Comments Blood Pressure 142/72 04/07/2024 4:00 AM BEHAVIORAL HEALTH TECHNICIAN Pulse 58 04/07/2024 3:30 AM BEHAVIORAL HEALTH TECHNICIAN Temperature 36.7 C (98.1 F) 04/07/2024 1:16 AM BEHAVIORAL HEALTH TECHNICIAN Respiratory Rate 18 04/07/2024 3:30 AM BEHAVIORAL HEALTH TECHNICIAN Oxygen Saturation 96% 04/07/2024 4:00 AM BEHAVIORAL HEALTH TECHNICIAN Inhaled Oxygen Concentration - - Weight 61.2 kg (135 lb) 04/07/2024 1:16 AM BEHAVIORAL HEALTH TECHNICIAN Height 152.4 cm (5') 04/07/2024 1:16 AM BEHAVIORAL HEALTH TECHNICIAN Body Mass Index 26.37 04/07/2024 1:16 AM BEHAVIORAL HEALTH TECHNICIAN Plan of Treatment Upcoming Encounters Date Type Department Care Team (Late st Contact Info) Description 07/01/2024 9:50 AM CDT Office Visit [facility] Family Medicine - [place] [address] [place] [phone] Ravinder Roblero II, MD [address] [place], [place] [phone] Health Maintenance Due Date Last Done Comments [...] 01/12/2022, 02/18/2021, Additional history exists PHQ-2 (Physician Helper) 03/20/2024 07/18/2023 PHQ-2 (Physician Helper) 07/17/2024 07/18/2023 Dexa Scan (General) Completed 02/20/2019, [...] to perform ADLs independently Lifestyle No Jeannette Coello, bad credit collector Procedure Name Priority Date/Time Associated Diagnosis Comments ECG 12-LEAD STAT 04/07/2024 2:13 AM BEHAVIORAL HEALTH TECHNICIAN TROPONIN, QUANT STAT 04/07/2024 2:10 AM BEHAVIORAL HEALTH TECHNICIAN CBC W/DIFF AUTOMATED STAT 04/07/2024 2:10 AM BEHAVIORAL HEALTH TECHNICIAN COMPREHENSIVE METABOLIC PANEL STAT 04/07/2024 2:10 AM BEHAVIORAL HEALTH TECHNICIAN BONE DENSITY/DEXA Routine 02/20/2019 10: 44 AM BEHAVIORAL HEALTH TECHNICIAN Asymptomatic menopausal state from Last 3 Months or Most Recently Relevant to Health Maintenance Results * ECG 12 lead (04/07/2024 2:13 AM BEHAVIORAL HEALTH TECHNICIAN) 04/07/2024 2:13 AM BEHAVIORAL HEALTH TECHNICIAN Narrative [facility] - 04/07/2024 6:01 AM BEHAVIORAL HEALTH TECHNICIAN [place] Test Date: 2024-04-07 Pat Name: ANISA RIVERA Department: 41 Room: [place] [address] Gender: Female Hospice Art Therapist: Romulo : 1945 Requested By: ÓSCAR OLGUIN Order Number: [id number] Reading MD: Kristian Beavers Measurements Intervals [place] Rate: 62 P: 56 OK: 177 QRS: 61 QRSD: 86 T: 33 QT: 405 QTc: 413 Interpretive Statements SINUS RHYTHM Compared to ECG 01/21/2024 17:32:17 Ventricular premature complex(es) no longer present VIORAL HEALTH TECHNICIAN Procedure Note Kristian Beavers MD - 04/07/[address] Test Date: 2024-04-07 Pat Name: ANISA RIVERA Department: 41 Room: [place] [address] Gender: Female Hospice Art Therapist: Romulo : 1945 Requested By: ÓSCAR OLGUIN Order Number: [id number] Reading MD: Kristian Beavers Measurements Intervals [place] Rate: 62 P: 56 OK: 177 QRS: 61 QRSD: 86 T: 33 QT: 405 QTc: 413 Interpretive Statements SINUS RHYTHM Compared to ECG 01/21/2024 17:32:17 Ventricular premature complex(es) no longer present VIORAL HEALTH TECHNICIAN us Óscar Olguin MD,PHD ECG ORDERABLES Final Resu lt [facility] RAD * (ABNORMAL) COMPREHENSIVE METABOLIC PANEL (04/07/2024 2:10 AM BEHAVIORAL HEALTH TECHNICIAN) Pathologist [facility] GLUCOSE 100(H) 70 - 99 MG/DL 04/07/2024 3:21 AM BEHAVIORAL HEALTH TECHNICIAN [facility] BUN 20(H) 7 - 18 MG/DL 04/07/2024 3:21 AM [facility] CREATININE S/P/B 1.31(H) 0.55 - 1.02 MG/DL 04/07/2024 3:21 AM [facility] SODIUM S/P/B 135(L) 136 - 145 MMOL/L 04/07/2024 3:21 AM [facility] POTASSIUM S/P/B 4.0 3.5 - 5.1 MMOL/L 04/07/2024 3:21 AM [facility] CHLORIDE S/P/B 104 97 - 115 MMOL/L 04/07/2024 3:21 AM [facility] CO2 26.2 21 - 32 MMOL/L 04/07/2024 3:21 AM [facility] CALCIUM S/P/B 9.7 8.5 - 10.1 MG/DL 04/07/2024 3:21 AM [facility] BILIRUBIN TOTAL S/P/B 0.4 0.2 - 1.2 MG/DL 04/07/2024 3:21 AM [facility] Comment: THIS ASSAY IS NOT RECOMMENDED FOR PATIENTS UNDERGOING TREATMENT WITH ELTROMBOPAG DUE TO THE POTENTIAL FOR FALSELY ELEVATED RESULTS. TOTAL PROTEIN S/P/B 7.4 6.4 - 8.2 G/DL 04/07/2024 3:48 AM [facility] ALBUMIN S/P/B 3.8 3.4 - 5.0 G/DL 04/07/2024 3:21 AM [facility] AST 6(L) 15 - 37 U/L 04/07/2024 3:21 AM [facility] ALT 15 14 - 55 U/L 04/07/2024 3:21 AM [facility] ALKALINE PHOSPHATASE S/P/B 110 50 - 136 U/L 04/07/2024 3:21 AM BEHAVIORAL HEALTH TECHNICIAN [facility] ANION GAP 4.8 2 - 10 MMOL/L 04/07/2024 3:21 AM [facility] BUN CREATININE RATIO 15.3 6 - 26 04/07/2024 3:21 AM [facility] A/G RATIO 1.1 1.0 - 2.0 RATIO 04/07/2024 3:48 AM [facility] GFR ESTIMATE 41(L) >90 ML/MIN/1.7 3 M2 04/07/2024 3:21 AM [facility] Comment: NOTE: eGFR is not calculated for patients <18 years of age or gender unknown. This is an estimated GFR calculation using the new CKD EPI creatinine equation without race and so does not require a correction factor for race. This estimated GFR should not be used for calculating drug doses. 04/07/2024 2:10 AM BEHAVIORAL HEALTH TECHNICIAN us Óscar Olguin MD,PHD LABORATORY Final Resu lt [facility] [address] [place] [address], * (ABNORMAL) CBC W/DIFF AUTOMATED (04/07/2024 2:10 AM BEHAVIORAL HEALTH TECHNICIAN) WBC 7.06 4.5 - 11.0 x10'3/uL 04/07/2024 2:59 AM [facility] RBC 4.03(L) 4.20 - 5.40 x10'6/uL 04/07/2024 2:59 AM [facility] HGB 13.1 12.0 - 16.0 G/DL 04/07/2024 2:59 AM [facility] HCT 39.2 38.0 - 48.0 % 04/07/2024 2:59 AM [facility] MCV 97.3 81.0 - 99.0 FL 04/07/2024 2:59 AM [facility] MCH 32.5(H) 27.0 - 31.0 PG 04/07/2024 2:59 AM [facility] MCHC 33.4 32.0 - 36.0 G/DL 04/07/2024 2:59 AM [facility] RDW 13.5 11.5 - 14.5 % 04/07/2024 2:59 AM [facility] PLT 152 130 - 400 x10'3/uL 04/07/2024 2:59 AM [facility] MPV 8.9(L) 9.3 - 12.2 FL 04/07/2024 2:59 AM [facility] DIFFERENTIAL TYPE AUTOMATED DIFFERENTIAL 04/07/2024 2:59 AM [facility] NEUTROPHILS % 53.9 % 04/07/2024 2:59 AM [facility] LYMPHOCYTES % 27.2 % 04/07/2024 2:59 AM [facility] MONOCYTES % 14.3 % 04/07/2024 2:59 AM [facility] EOSINOPHILS 4.1 % 04/07/2024 2:59 AM [facility] BASOPHILS 0.4 % 04/07/2024 2:59 AM [facility] IMMATURE GRANS % 0.1 % 04/07/19 2:59 AM [facility] ABS. NEUTROPHILS 3.80 1.80 - 7.70 x10'3/uL 04/07/2024 2:59 AM [facility] ABS. LYMPHOCYTES 1.92 1.00 - 4.80 x10'3/uL 04/07/2024 2:59 AM BEHAVIORAL HEALTH TECHNICIAN [facility] ABS. MONOCYTES 1.01(H) 0.24 - 0.86 x10'3/uL 04/07/2024 2:59 AM BEHAVIORAL HEALTH TECHNICIAN [facility] ABS. EOSINOPHILS 0.29 0.04 - 0.36 x10'3/uL 04/07/2024 2:59 AM [facility] ABS. BASOPHILS 0.03 0.01 - 0.08 x10'3/uL 04/07/2024 2:59 AM [facility] ABS. IMMATURE GRANULOCYTES 0.01 0.00 - 0.49 x10'3/uL 04/07/2024 2:59 AM [facility] 04/07/2024 2:10 AM BEHAVIORAL HEALTH TECHNICIAN Óscar Olguin MD,PHD LABORATORY Final Resu lt [facility] [address] [place] [address], [place] [phone] * TROPONIN, QUANT (04/07/2024 2:10 AM BEHAVIORAL HEALTH TECHNICIAN) Pathologist [facility] TROPONIN I HIGH SENSITIVITY 11 <54 ng/L 04/07/2024 3:21 AM BEHAVIORAL HEALTH TECHNICIAN [facility] Comment: HIGH DOSES OF BIOTIN, TROPONIN-SPECIFIC AUTOANTIBODIES, AND ANTIBODY THERAPY CONTAINING HAMA MAY INTERFERE WITH THIS TEST RESULT. CORRELATION TO CLINICAL HISTORY AND PRESENTATION RECOMMENDED. 04/07/2024 2:10 AM BEHAVIORAL HEALTH TECHNICIAN Óscar Olguin MD,PHD LABORATORY Final Resu lt [facility] [address] [place] [address], [place] [phone] * BONE DENSITY/DEXA (02/20/2019 10:44 AM BEHAVIORAL HEALTH TECHNICIAN) Anatomical Region Laterality Modality Bone Mammography 02/20/2019 10:4 7 AM BEHAVIORAL HEALTH TECHNICIAN Impressions 02/20/2019 10:50 AM BEHAVIORAL HEALTH TECHNICIAN =====IMPRESSION:===== Lumbar spine bone density: Normal Increased [...] from prior exam. Narrative 02/20/2019 10:50 AM BEHAVIORAL HEALTH TECHNICIAN Examination: Bone Density Axial Exam date/time: 02/20/2019 10:10 AM Reason For Exam: Postmenopausal. History of leukemia. Hormone replacement therapy. Comparison: DEXA scan 03/02/2017. Findings: DEXA bone densitometry The bone mineral density (BMD) was determined by dual-energy x-ray absorptiometry, the results are as follows: AP Lumbar Spine L1 through L4 BMD Patient (GM/SQCM): 1.185 T-Score (Standard deviations from young adult peak bone density): 1.3 Bilateral femoral neck: BMD Patient (GM/SQCM): 0.718 T-Score (Standard deviations from young adult peak bone density): -1.2 Total femur: BMD Patient (GM/SQCM): 0.800 T-Score (Standard deviations from young adult peak [...] No significant change from prior exam. Esperanza BOWLING DEXA Final Result from Last 3 Months or Most Recently Relevant to Health Maintenance Insurance MEDICARE GENERIC - COMMERCIAL Advance Directives * Full Code (Latest Code Status on File) Date Activated Date Inactivated Comments 01/21/2024 4:56 PM 01/22/2024 2:13 PM Care Teams Chimney Repairer Relationship Specialty Start Date End Date Ravinder Roblero II, MD [address] [place] [address] PCP - General FAMILY PRACTICE 11/27/21
--- OUTSIDE RECORDS SUMMARY | 2024-05-02 13:00 | XMS_ITS | Encounter Summary ---
Author Organization [facility] Address [address] [place] [address] Phone Care Team Providers Care Textile Engineer Name Role Phone Osbaldo POE MD, Ravinder Leon Primary Care Provid er Encounter Details Date Type Department Care Team (Late st Contact Info) Description 06/26/2023 Telephone [facility] Oncology [address] 7th [place] [address] [place] [phone] Bailey Buckner Social History Tobacco Use Types [...] on file Legal Sex Female 3:14 AM FARM BUTCHER Gender Identity Not on file Sexual Orientation Straight 02/25/2019 6: 42 PM FARM BUTCHER documented as of this encounter Plan of Treatment Not on file documented as of this encounter Visit Diagnoses Not on filedocumented in this encounter Care Teams Textile Engineer Relationship Specialty Start Date End Date Ravinder Roblero II, MD PCP - General Family Practice 06/27/22 documented as of this encounter
--- OUTSIDE RECORDS SUMMARY | 2024-05-02 13:00 | XMS_ITS | Encounter Summary ---
Author Organization [facility] Address [address] [place] [address] Phone Care Team Providers Care Child Protection Specialist Name Role Phone Paul Clarke MD Primary Care Provider [phone] Barrington Mahan MD Primary Care Provider [phone] Osbaldo POE MD, Ravinder Leon Primary Care Provid er Encounter Details Date Type Department Care Team (Latest Contact Info) Description 03/21/2017 Orders Only [facility] CONVERSION Scanning, Provider Social History Tobacco Use Types Packs/Day Years Used Date Smoking Tobacco: Never Assessed Comments Unknown Sex and Gender Information Value Date Recorded Sex Assigned at Not on file Legal Sex Female 3:14 AM BIOSECURITY OFFICER Gender Identity Not on file Sexual Orientation Straight 02/25/2019 6: 42 PM BIOSECURITY OFFICER documented as of this encounter Plan of Treatment Not on file documented as of this encounter Procedures Procedure Name Priority Date/Time Associated Diagnosis Comments VASCULAR LABORATORY REPORT 03/21/2017 7:05 PM BIOSECURITY OFFICER documented in this encounter Results * VASCULAR LABORATORY REPORT (03/21/2017 7:05 PM BIOSECURITY OFFICER) Anatomical Region Laterality Modality Ultrasound us Provider Scanning CV VASCULAR PROCEDURES Final R esult documented in this encounter Visit Diagnoses Not on filedocumented in this encounter Care Teams Child Protection Specialist Relationship Specialty Start Date End Date Paul Clarke MD [address] [place] [address] PCP - General 02/22/17 03/17/19 Barrington Mahan MD [address] [place] [address] PCP - General Family Medicine 03/18/19 06/26/22 Ravinder Roblero II, MD [address] [place], [place] [phone] PCP - General Family Practice 06/27/22 documented as of this encounter
--- OUTSIDE RECORDS SUMMARY | 2024-05-02 13:00 | XMS_ITS | Encounter Summary ---
Author Organization [facility] Address [address] [place] [address] Care Team Providers Care Web Site Admin Name Role Phone Barrington Mahan MD Primary Care Provider Chiki Roblero II, MD, Ravinder Rubalcava Primary Care Provider Janet Rushing RN Unavailable [phone] Encounter Details Date Type Department Care Team (Late st Contact Info) Description 04/16/2021 [facility] Family Medicine - [place] [address] [place] [address] Lindsey Burkett MA Social History [...] Sex Assigned at Female 04/07/2024 2:01 AM SUPERVISOR METAL FURNITURE FABRICATION Legal Sex Female 6:39 PM CDT Gender Identity Female 04/13/2021 4:55 PM SUPERVISOR METAL FURNITURE FABRICATION Sexual Orientation Straight 04/13/2021 4: 55 PM SUPERVISOR METAL FURNITURE FABRICATION COVID-19 Exposure Response Date Recorded In the last month, have you been in contact with someone who was confirmed or suspected to have Coronavirus / COVID-19? No / Unsure 04/16/2021 12:18 PM SUPERVISOR METAL FURNITURE FABRICATION documented as of this encounter Plan of Treatment Upcoming Encounters Date Type Department Care Team (Late st Contact Info) Description 07/01/2024 9:50 AM CDT Office Visit [facility] Family Medicine - [place] [address] [place] [address] Ravinder Roblero II, MD [address] [place] [address] documented as of this encounter Visit Diagnoses Not on filedocumented in this encounter Additional Health Concerns Assessment Noted Time PHQ-9 Depression Total Score: 0 12/04/19 11:29 AM CDT documented as of this encounter Care Teams Web Site Admin Relationship Specialty Start Date End Date Barrington Mahan MD PCP - General FAMILY PRACTICE 02/11/19 11/26/21 Ravinder Roblero II, MD [address] [place] [address] PCP - General FAMILY PRACTICE 11/27/21 Janet Rushing, RN [address] [facility] [address] [place] [address] Registered Nurse CARE MANAGEMENT 01/22/24 01/31/24 documented as of this encounter
--- OUTSIDE RECORDS SUMMARY | 2024-05-02 13:00 | XMS_ITS | Encounter Summary ---
Author Organization [facility] Address [address] [place] [address] Care Team Providers Care Ticket Taker Ferryboat Name Role Phone Osbaldo POE MD, Ravinder Rubalcava Primary Care Provider Janet Rushing RN Unavailable [phone] Encounter Details Date Type Department Care Team (Late st Contact Info) Description 02/07/2022 [facility] Message Enc [facility] Family Medicine - [place] [address] [place] [address] Ravinder Roblero II, MD [address] [place] [address] Blood work prior to Mar 07 Appt. [...] Sex Assigned at Female 04/07/2024 2:01 AM DIRECTOR SEARCH MARKETING STRATEGIES Legal Sex Female 6:39 PM CDT Gender Identity Female 04/13/2021 4:55 PM DIRECTOR SEARCH MARKETING STRATEGIES Sexual Orientation Straight 04/13/2021 4: 55 PM DIRECTOR SEARCH MARKETING STRATEGIES documented as of this encounter Plan of Treatment Upcoming Encounters Date Type Department Care Team (Late st Contact Info) Description 07/01/2024 9:50 AM CDT Office Visit [facility] Family Medicine - [address] [place] [phone] Ravinder Roblero II, MD [address] [place] [address] documented as of this encounter Visit Diagnoses Not on filedocumented in this encounter Additional Health Concerns Assessment Noted Time PHQ-9 Depression Total Score: 1 12/03/19 22 3:11 PM CDT documented as of this encounter Care Teams Ticket Taker Ferryboat Relationship Specialty Start Date End Date Ravinder Roblero II, MD [address] [place] [address] PCP - General FAMILY PRACTICE 11/27/21 Janet Rushing, RN [address] [facility] [address] [place] [address] Registered Nurse CARE MANAGEMENT 01/22/24 01/31/24 documented as of this encounter
--- OUTSIDE RECORDS SUMMARY | 2024-05-02 13:00 | XMS_ITS | Encounter Summary ---
Author Organization [facility] Address [address] [place] [address] Care Team Providers Care Roll Edge Stitcher Hand Name Role Phone Paul Clarke MD Primary Care Provider [phone] Barrington Mahan MD Primary Care Provider [phone] Osbaldo POE MD, Ravinder Leon Primary Care Provid er Encounter Details Date Type Department Care Team (Late st Contact Info) Description 03/04/2019 Telephone [facility] [address] [place] [address] Sukhdev Tolbert, RT Social History Tobacco [...] on file Legal Sex Female 3:14 AM COLOR TECHNICIAN Gender Identity Not on file Sexual Orientation Straight 02/25/2019 6: 42 PM COLOR TECHNICIAN documented as of this encounter Plan of Treatment Not on file documented as of this encounter Visit Diagnoses Not on filedocumented in this encounter Care Teams Roll Edge Stitcher Hand Relationship Specialty Start Date End Date Paul Clarke MD [address] [place] [address] PCP - General 02/22/17 03/17/19 Barrington Mahan MD [address] [place], [place] [phone] PCP - General Family Medicine 03/18/19 06/26/22 Ravinder Roblero II, MD [address] [place] [address] PCP - General Family Practice 06/27/22 documented as of this encounter
--- OUTSIDE RECORDS SUMMARY | 2024-05-02 13:00 | XMS_ITS | Encounter Summary ---
Author Organization [facility] [email or web address] [facility] Address [address] [place] [address] Phone Care Team Providers Care Protection Manager Name Role Phone Paul Clarke MD Primary Care Provider Barrington Mahan MD Primary Care Provider +- [phone] Osbaldo POE MD, Ravinder Leon Primary Care Provid er Encounter Details Date Type Department Care Team (Latest Contact Info) Description 07/12/2018 Orders Only [facility] Scanning, Provider Social History Tobacco Use Types Packs/Day Years Used Date Smoking Tobacco: Former Smokeless Tobacco: Never Comments Unknown Sex and Gender Information Value Date Recorded Sex Assigned at Not on file Legal Sex Female 3:14 AM COMB TENDER Gender Identity Not on file Sexual Orientation Straight 02/25/2019 6: 42 PM COMB TENDER documented as of this encounter Plan of Treatment Not on file documented as of this encounter Procedures Procedure Name Priority Date/Time Associated Diagnosis Comments SCAN - LABS 07/12/2018 documented in this encounter Results * SCAN - LABS (07/12/2018) us Provider Scanning Final Result documented in this encounter Visit Diagnoses Not on filedocumented in this encounter Care Teams Protection Manager Relationship Specialty Start Date End Date Paul Clarke MD [address] [address] PCP - General 02/22/17 03/17/19 Barrington Mahan MD 100 [place] [address] PCP - General Family Medicine 03/18/19 06/26/22 Ravinder Roblero II, MD 100 [facility] [place] [id number] PCP - General Family Practice 06/27/22 documented as of this encounter
--- OUTSIDE RECORDS SUMMARY | 2024-05-02 13:00 | XMS_ITS | Encounter Summary ---
Author Organization [facility] [employer] [facility] Address [address] [place] [address] Phone Care Team Providers Care Veneer Cutter Name Role Phone Paul Clarke MD Primary Care Provider Barrington Mahan MD Primary Care Provider +- [phone] Osbaldo POE MD, Ravinder Leon Primary Care Provid er Encounter Details Date Type Department Care Team (Latest Contact Info) Description 02/22/2017 Orders Only [facility] Scanning, Provider Social History Tobacco Use Types Packs/Day Years Used Date Smoking Tobacco: Never Assessed Comments Unknown Sex and Gender Information Value Date Recorded Sex Assigned at Not on file Legal Sex Female 3:14 AM EDGE BANDER OPERATOR Gender Identity Not on file Sexual Orientation Straight 02/25/2019 6: 42 PM EDGE BANDER OPERATOR documented as of this encounter Plan of [...] on filedocumented in this encounter Care Teams Veneer Cutter Relationship Specialty Start Date End Date Paul Clarke MD [address] [address] PCP - General 02/22/17 03/17/19 Barrington Mahan MD 100 [place], [place] [phone] PCP - General Family Medicine 03/18/19 06/26/22 Ravinder Roblero II, MD 100 [place], [place] [phone] PCP - General Family Practice 06/27/22 documented as of this encounter
--- OUTSIDE RECORDS SUMMARY | 2024-05-02 13:00 | XMS_ITS | Referral Summary ---
Author Organization [facility] Medical [facility] [address] [place] [address] Care Team Providers Care Grants And Contracts Assistant Name Role Phone Osbaldo POE MD, Ravinder Leon Primary Care Provid er Encounters Date Type Department Care Team Description 04/17/2024 1:00 PM DIRECT CUSTOMER SERVICE REPRESENTATIVE Office Visit [facility] Cardiology [address] [facility] [address] [place] [phone] Jacob Mckenna MD LVH (left ventricular hypertrophy) (Primary Dx); Essential hypertension; Bilateral carotid artery stenosis; Leg edema, right 04/08/2024 Telephone [facility] Cardiology [address] [facility] [address] [place] [phone] Jacob Mckenna MD 04/05/2024 Telephone [facility] Cardiology [address] [place] [address] [address] [place] [phone] Jacob Mckenna MD Leg Swelling; nerve pain and burning; Hypertension 03/05/2024 8:30 AM DIRECT CUSTOMER SERVICE REPRESENTATIVE Procedure visit [facility] Otolaryngology [address] [place] [phone] Tess Hunter 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 (Primary Dx) 03/05/2024 9:00 AM DIRECT CUSTOMER SERVICE REPRESENTATIVE Office Visit [facility] Otolaryngology [address] [place] [phone] Roxann Banerjee NP Dysfunction of left eustachian tube (Primary Dx); Mixed conductive and sensorineural hearing loss of left ear with restricted hearing of right ear; Tinnitus of left ear 02/19/2024 9:45 AM DIRECT CUSTOMER SERVICE REPRESENTATIVE Lab [facility] - Lab Collection [address] [facility] Floor 6 [place] [address] Chronic myeloid leukemia (CMS/HCC) (HCC) 02/19/2024 10:30 AM DIRECT CUSTOMER SERVICE REPRESENTATIVE Office Visit [facility] Bone Marrow Transplant [address] [place] [address] 6 [place] [phone] Jameson [place] MD PhD Chronic myeloid leukemia (CMS/HCC) (HCC) (Primary Dx) 02/19/2024 9:30 AM DIRECT CUSTOMER SERVICE REPRESENTATIVE Lab [facility] Oncology Lab [address] [place] [address] 6 [place] [address] Chronic myeloid leukemia (CMS/HCC) (HCC) 02/06/2024 2:30 PM DIRECT CUSTOMER SERVICE REPRESENTATIVE Office Visit [facility] Medical Group Cardiology [address] [place] [address] Carmen Mcconnell NP Essential hypertension (Primary Dx); 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) (HCC); Hospital discharge follow-up from Last 3 Months Allergies Active Allergy Reactions Criticality Noted Date Comments Sulfa (Sulfonamide Antibiotics) Hives Medium 10/2010 Medications multivit-mineral s/ferrous fum (MULTI VITAMIN ORAL)Indications :CML (chronic myelocytic leukemia) (CMS/HCC) ([facility]) daily. Acti ve aspirin 81 mg enteric coated tabletIndication s:prevention of thrombosis Take 1 tablet (81 mg total) by mouth daily 30 tablet 11 07/19/19 19 Active ascorbic acid, vitamin C, 500 mg capsuleIndicatio ns:Chronic myeloid leukemia (CMS/HCC) (HCC) Take 1 capsule by mouth daily Active cholecalciferol (VITAMIN D-3) 5,000 unit tabletIndication s:Chronic myeloid leukemia (CMS/HCC) (HCC) Take 1 tablet (5,000 Units total) by mouth daily Active clonazePAM (KlonoPIN) 0.5 mg tabletIndication s:Chronic myeloid leukemia (CMS/HCC) (HCC) Take 1 tablet (0.5 mg total) by mouth nightly as needed for seizures 60 tablet 3 11/16/19 23 Active asciminib (SCEMBLIX) 40 mg tabletIndication s:Chronic myeloid leukemia (CMS/HCC) (HCC) Take 2 tablets (80 mg total) at the same time daily on empty stomach. Avoid food 2 hours before and 1 hour after dose. Swallow whole. 60 tablet 11 05/29/19 24 Active atorvastatin (LIPITOR) 10 mg tabletIndication s:Bilateral carotid artery stenosis Take 1 tablet by mouth once daily 90 tablet 3 09/06/19 24 Active Additional Information Patient not taking.Reported on 04/17/2024 lisinopriL (PRINIVIL,ZESTRI L) 40 mg tablet Take 1 tablet (40 mg total) by mouth nightly 30 tablet 3 04/08/19 25 Active carvediloL (COREG) 6.25 mg tabletIndication s:LVH (left ventricular hypertrophy),Ess ential hypertension Take 1 tablet (6.25 mg total) by mouth 2 (two) times a day with meals 60 tablet 04/17/19 026 Active amLODIPine (NORVASC) 5 mg tablet Take 1 tablet (5 mg total) by mouth daily May take additional 5 mg once daily for elevated BP 01/29/20 24 025 Discontin ued(Alter bette therapy) lisinopriL (PRINIVIL,ZESTRI L) 40 mg tablet Take 1 tablet (40 mg total) by mouth nightly 01/22/20 24 025 Discontin ued(Reord er) carvediloL (COREG) 3.125 mg tablet Take 1 tablet (3.125 mg total) by mouth 2 (two) times a day with meals 60 tablet 04/05/19 025 Discontin ued(Dupli dilshad order) Active Problems Problem Noted Date Diagnosed Date Leg edema, right 04/17/2024 Tinnitus of left ear 03/05/2024 Mixed conductive and sensori neural hearing loss of left ear with restricted hearing of right ear 03/05/2024 Dysfunction of left eustachian tube 03/05/2024 Bilateral carotid artery stenosis 03/17/2020 Shortness of breath 09/11/2019 Essential hypertension 03/18/2019 LVH (left ventricular hypertrophy) 08/21/2018 Emphysema of lung 08/21/2018 Chronic myeloid leukemia ([facility]/HCC) 01/24/2014 Immunizations Name Administration Dates Next Due [...] on file Legal Sex Female 3:14 AM DIRECT CUSTOMER SERVICE REPRESENTATIVE Gender Identity Not on file Sexual Orientation Straight 02/25/2019 6: 42 PM DIRECT CUSTOMER SERVICE REPRESENTATIVE Last Filed Vital Signs Vital Sign Reading Time Taken Comments Blood Pressure 138/80 04/17/2024 1:02 PM DIRECT CUSTOMER SERVICE REPRESENTATIVE Pulse 70 04/17/2024 1:02 PM DIRECT CUSTOMER SERVICE REPRESENTATIVE Temperature 36.6 C (97.8 F) 02/19/2024 10:53 AM DIRECT CUSTOMER SERVICE REPRESENTATIVE Respiratory Rate 18 03/05/2024 8:46 AM DIRECT CUSTOMER SERVICE REPRESENTATIVE Oxygen Saturation 98% 04/17/2024 1:02 PM DIRECT CUSTOMER SERVICE REPRESENTATIVE Inhaled Oxygen Concentration - - Weight 61.2 kg (135 lb) 04/17/2024 1:02 PM DIRECT CUSTOMER SERVICE REPRESENTATIVE Height 152.4 cm (5') 04/17/2024 1:02 PM DIRECT CUSTOMER SERVICE REPRESENTATIVE Body Mass Index 26.37 04/17/2024 1:02 PM DIRECT CUSTOMER SERVICE REPRESENTATIVE Plan of Treatment Not on file Procedures Procedure Name Priority Date/Time Associated Diagnosis Comments EGFR Routine 02/19/2024 9:32 AM DIRECT CUSTOMER SERVICE REPRESENTATIVE Chronic myeloid leukemia (CMS/HCC) (HCC) DIFFERENTIAL AUTO Routine 02/19/2024 9:3 2 AM DIRECT CUSTOMER SERVICE REPRESENTATIVE Chronic myeloid leukemia (CMS/HCC) (HCC) CBC WITH AUTO DIFFERENTIAL Routine 02/19/2024 9:32 AM DIRECT CUSTOMER SERVICE REPRESENTATIVE Chronic myeloid leukemia (CMS/HCC) (HCC) COMPREHENSIVE METABOLIC PANEL Routine 02/19/2024 9:32 AM DIRECT CUSTOMER SERVICE REPRESENTATIVE Chronic myeloid leukemia (CMS/HCC) (HCC) LACTATE DEHYDROGENASE Routine 02/19/2024 9:32 AM DIRECT CUSTOMER SERVICE REPRESENTATIVE Chronic myeloid leukemia (CMS/HCC) (HCC) BCR/ABL P210 QUANTITATIVE, PCR Routine 02/19/2024 9:32 AM DIRECT CUSTOMER SERVICE REPRESENTATIVE Chronic myeloid leukemia (CMS/HCC) (HCC) from Last 3 Months Results * (ABNORMAL) BCR/ABL p210 Quantitative, PCR (02/19/2024 9:32 AM DIRECT CUSTOMER SERVICE REPRESENTATIVE) BCR/ABL p210 Positive(A) [facility] BCR/ABL p210 % (IS) 0.38% [facility] BCR/ABL p210 Interpretation Positive: BCR::ABL1 major (p210) transcripts were detected. [facility] BCR/ABL p210 Specimen Blood [facility] BCR/ABL p210 Result Review Final report reviewed by: Bess Guy BA, MB([facility]) Plumbing Assembler, on 02/20/2024 13:20:37 DIRECT CUSTOMER SERVICE REPRESENTATIVE. [facility] Comment: Interpretive Data A summary of previous BCR::ABL1 major quantitative RT-PCR results for this patient performed in the [facility] Molecular Diagnostics Lab may be found as a cumulative laboratory report in the Results Review section of the Medical Record. Method: The quantitative BCR::ABL1 assay is performed on the GeneXpert ([employer]) platform. RNA is extracted, converted to cDNA, and BCR::ABL1 and ABL1 cDNA targets are quantified by real-time PCR amplification. Results are reported as the percentage ratio of BCR::ABL1 fusion transcripts to ABL1 transcripts (BCR::ABL1/ABL1) on the International Scale (Enedina COLLADO, 2010). A BCR::ABL1 value of 0.1% on the International Scale represents a major molecular response in CML (Be S, 2008). The analytical sensitivity of this assay is 0.0032% BCR::ABL1/ABL1. Due to assay non-linearity for the BCR::ABL1 p210 isoform at very high and low concentrations, results greater than 10% (above upper limit of quantification or ULOQ) will be reported as > 10% and results detected at less than 0.0032% (below lower limit of quantification or LLOQ) will be reported as < 0.0032% . Limitations: This test only detects the [...] high complexity clinical laboratory testing. Literature References: eB S, Cleveland L, Marcus N, et al. Desirable performance characteristics for BCR-ABL measurement on an international reporting scale to allow consistent interpretation of individual patient response and comparison of response rate between clinical trials. Blood 2008;113:0669-7261. Enedina COLLADO, Mónica P, Sabrina P, et al. Establishment of the first World Health Organization International Genetic Reference Panel for quantification of BCR-ABL mRNA. Blood 2010;116:d875-468. GeneXpert BCR-ABL V2 Package Insert [id number], Rev B (January 2016). Xpert BCR-ABL Monitor, [id number], Rev A, July 2010. This test was performed at: [facility], [facility], CLIA#[id number], Gisele Valencia, Ph.D., [place], [address], [place] Current interpretive data was last revised 2023. Blood 02/19/2024 9:32 AM DIRECT CUSTOMER SERVICE REPRESENTATIVE 02/19/2024 11:27 AM DIRECT CUSTOMER SERVICE REPRESENTATIVE Bess Perez NP LAB GENETIC TESTING Final Result Performing Organization Address [facility] Co de Phone Number [facility] [place] [address] [facility] * (ABNORMAL) eGFR (02/19/2024 9:32 AM DIRECT CUSTOMER SERVICE REPRESENTATIVE) eGFR 53(L) >=60 mL/min/1. 73 m2 Comment: Interpretive Data Reference Interval Normal >/= 90 mL/min/1.73m2 Mildly decreased* 60 - 89 mL/min/1.73m2 Mildly to moderately decreased 45 - 59 mL/min/1.73m2 Moderately to severely decreased 30 - 44 mL/min/1.73m2 Severely decreased 15 - 29 mL/min/1.73m2 Kidney Failure < 15 mL/min/1.73m2 *Relative to young adult level Estimated glomerular [...] last reviewed 2021. Blood 02/19/2024 9:32 AM DIRECT CUSTOMER SERVICE REPRESENTATIVE 02/19/2024 10:01 AM DIRECT CUSTOMER SERVICE REPRESENTATIVE Bess Perez NP LAB BLOOD ORDERABLES Meka l Result Performing Organization Address City/[facility]/ZIP Co de Phone Number [facility] [place] [address] * Differential, auto (02/19/2024 9:32 AM DIRECT CUSTOMER SERVICE REPRESENTATIVE) Neutrophil abs 3.8 1.5 - 6.5 K/cumm Comment:Testing performed by : [facility], [address] [place] [phone] Lymphocyte abs 1.2 0.8 - 3.3 K/cumm [facility] Comment:Testing performed by : [facility], [address] [place] [phone] Monocyte abs 0.7 0.2 - 0.8 K/cumm [facility] Comment:Testing performed by : [facility], [address] [place] [address] Eosinophil abs 0.1 0.0 - 0.5 K/cumm [facility] Comment:Testing performed by : [facility], [address] [place] [phone] Basophil abs 0.0 0.0 - 0.1 K/cumm [facility] Comment:Testing performed by : [facility], [address] [place], [place] [phone] Neutrophil pct 64.2 % [facility] Comment: Interpretive Data Percent cell count reference ranges are not reported, since discordance with absolute values may lead to misinterpretation of CBC data. Current Interpretive Data was last revised on 2017. Testing performed by: [facility], [address] [place] [phone] Lymphocyte pct 20.2 % [facility] Comment: Interpretive Data Percent cell count reference ranges are not reported, since discordance with absolute values may lead to misinterpretation of CBC data. Current Interpretive Data was last revised on 2017. Testing performed by: [facility], [address] [place] [phone] Monocyte pct 12.6 % [facility] Comment: Interpretive Data Percent cell count reference ranges are not reported, since discordance with absolute values may lead to misinterpretation of CBC data. Current Interpretive Data was last revised on 2017. Testing performed by: [facility], [address] [place] [phone] Eosinophil pct 2.3 % [facility] Comment: Interpretive Data Percent cell count reference ranges are not reported, since discordance with absolute values may lead to misinterpretation of CBC data. Current Interpretive Data was last revised on 2017. Testing performed by: [facility], [address] [place] [address] Basophil pct 0.7 % CERYONNY LOVE Comment: Interpretive Data Percent cell count reference ranges are not reported, since discordance with absolute values may lead to misinterpretation of CBC data. Current Interpretive Data was last revised on 2017. Testing performed by: [facility], [address] [place] [address] Blood 02/19/2024 9:32 AM DIRECT CUSTOMER SERVICE REPRESENTATIVE 02/19/2024 9:57 AM DIRECT CUSTOMER SERVICE REPRESENTATIVE Bess Perez CONSTRUCTION ELECTRICIAN LAB BLOOD ORDERABLES Meka sin Result PAULA LOVE [facility] Department [place] [address] * (ABNORMAL) CBC with auto differential (02/19/2024 9:32 AM DIRECT CUSTOMER SERVICE REPRESENTATIVE) WBC 5.9 3.8 - 9.9 K/cumm Comment:Testing performed by : [facility], [address] [place] [address] Hgb 13.1 11.9 - 15.5 g/dL PAULA LOVE Comment:Testing performed by : [facility], [address] [place] [address] Hct 40.5 35.6 - 45.5 % PAULA LOVE Comment:Testing performed by : [facility], [address] [place] [address] Plt 197 150 - 400 K/cumm PAULA LOVE Comment:Testing performed by : [facility], [address] [place] [address] MPV 6.6(L) 6.8 - 10.4 fL PAULA LOVE Comment:Testing performed by : [facility], [address] [place] [address] RBC 4.05 3.90 - 5.20 M/cumm CERYONNY [facility] Comment:Testing performed by : [facility], [address] [place], [place] [phone] MCV 99.8(H) 81.3 - 96.4 fL CERYONNY [facility] Comment:Testing performed by : [facility], [address] [place], [place] [phone] MCH 32.2 27.1 - 33.3 pg PAULA [facility] Comment:Testing performed by : [facility], [address] [place], [place] [phone] MCHC 32.2(L) 32.3 - 35.7 g/dL PAULA [facility] Comment:Testing performed by : [facility], [address] [place], [place] [phone] RDW CV 14.1 11.1 - 14.9 % PAULA [facility] Comment:Testing performed by : [facility], [address] [place], [place] [phone] NRBC abs 0.00 0.00 - 0.01 K/cumm [facility] Comment:Testing performed by : [facility], [address] [place], [place] [phone] Blood 02/19/2024 9:32 AM DIRECT CUSTOMER SERVICE REPRESENTATIVE 02/19/2024 9:57 AM DIRECT CUSTOMER SERVICE REPRESENTATIVE Bess Perez NP LAB BLOOD ORDERABLES Meka l Result Performing Organization Address [facility]/State/ZIP Co de Phone Number [facility] Department [place] [address] * Lactate dehydrogenase (LD) (02/19/2024 9:32 AM DIRECT CUSTOMER SERVICE REPRESENTATIVE) Lactate dehydrogenase (LDH) 161 100 - 250 Units/L Blood 02/19/2024 9:32 AM DIRECT CUSTOMER SERVICE REPRESENTATIVE 02/19/2024 10:01 AM DIRECT CUSTOMER SERVICE REPRESENTATIVE Bess Perez CONSTRUCTION ELECTRICIAN LAB BLOOD ORDERABLES Meka l Result Performing Organization Address [facility]/ZIP Co de Phone Number [facility] [place] [address] * Comprehensive metabolic panel (02/19/2024 9:32 AM DIRECT CUSTOMER SERVICE REPRESENTATIVE) Sodium 142 135 - 145 mmol/L Potassium, pl 4.3 3.3 - 4.9 mmol/L [facility] Chloride 104 97 - 110 mmol/L [facility] CO2 32 22 - 32 mmol/L [facility] Anion gap 6 2 - 15 mmol/L [facility] BUN 15 6 - 25 mg/dL [facility] Creatinine 1.07 0.60 - 1.10 mg/dL [facility] Glucose 86 70 - 199 mg/dL [facility] Comment: Interpretive Data Fasting glucose >/= 126 mg/dl is diagnostic for diabetes. Fasting is defined as no caloric intake [...] classification and Diagnosis of Diabetes Diabetes Care 2021; 46: S19-S40. Current interpretive data was last revised 2022. Calcium 9.8 8.5 - 10.3 mg/dL [facility] Bilirubin, total 0.4 0.1 - 1.2 mg/dL [facility] Protein, pl 7.3 6.5 - 8.5 g/dL [facility] Albumin 4.3 3.5 - 5.0 g/dL [facility] Alk phos 117 40 - 130 Units/L [facility] ALT 15 7 - 45 Units/L [facility] AST 22 10 - 45 Units/L [facility] Blood 02/19/2024 9:32 AM DIRECT CUSTOMER SERVICE REPRESENTATIVE 02/19/2024 10:01 AM DIRECT CUSTOMER SERVICE REPRESENTATIVE Bess Perez CONSTRUCTION ELECTRICIAN LAB BLOOD ORDERABLES Meka l Result Performing Organization Address City/[facility]/ZIP Co de Phone Number [facility] Department [place] [address] from Last 3 Months Insurance MEDICARE COMMERCIAL GENERIC MEDICARE COMMERCIAL GENERIC MEDICARE COMMERCIAL GENERIC [place] [id number] Care Teams Grants And Contracts Assistant Relationship Specialty Start Date End Date Ravinder Roblero II, MD PCP - General Family Practice 06/27/22
--- OUTSIDE RECORDS SUMMARY | 2024-05-02 13:00 | XMS_ITS | Encounter Summary ---
Author Organization [facility] Healthcare Address [address] [place] [address] Care Team Providers Care Plaster Lather Name Role Phone Osbaldo POE MD, Ravinder Leon Primary Care Provid er Encounter Details Date Type Department Care Team (Late st Contact Info) Description 04/08/2024 Telephone [facility] Medical Group Cardiology [address] [place] [address] Jacob Mckenna MD [address] [id number] Social History Tobacco Use Types Packs/Day Years [...] on file Legal Sex Female 3:14 AM PAYROLL ACCOUNTING MANAGER Gender Identity Not on file Sexual Orientation Straight 02/25/2019 6: 42 PM PAYROLL ACCOUNTING MANAGER documented as of this encounter Ordered Prescriptions Prescription Sig Dispense Quantity Refills Last Filled Start Date End Date lisinopriL (PRINIVIL,ZESTRIL) 40 mg tablet Take 1 tablet (40 mg total) by mouth nightly 30 tablet 3 04/08/2024 documented in this encounter Miscellaneous Notes * Telephone Encounter - Sherley Ackerman MA - 04/08/2024 3:20 PM PAYROLL ACCOUNTING MANAGER Sent lisinopril 40mg script to [facility] as requested. OLL ACCOUNTING MANAGER * Telephone Encounter - Jody Hemphill - 04/08/2024 2:21 PM CST Patient requesting refill for Lisinopril 40 mg with 30 day supply. Please send to [facility] in [place]. Thank you. Contact: OLL ACCOUNTING MANAGER documented in this encounter Plan of Treatment Not on file documented as of this encounter Visit Diagnoses Not on filedocumented in this encounter Discontinued Medications Medication Sig Discontinue Reason Start Date End Da te lisinopriL (PRINIVIL,ZESTRIL) 40 mg tablet Take 1 tablet (40 mg total) by mouth nightly Reorder 01/22/2024 04/08/2024 documented as of this encounter Care Teams Plaster Lather Relationship Specialty Start Date End Date Ravinder Roblero II, MD PCP - General Family Practice 06/27/22 documented as of this encounter
--- OUTSIDE RECORDS SUMMARY | 2024-05-02 13:00 | XMS_ITS | Clinical Summary ---
Author Organization [facility] Medical [facility] [address] [place] [address] Care Team Providers Care Wheat And Oats Flake Miller Name Role Phone Osbaldo POE MD, Ravinder Edward Primary Care Provid er Allergies Active Allergy Reactions Criticality Noted Date Comments Sulfa (Sulfonamide Antibiotics) Hives Medium 10/2010 Medications multivit-mineral s/ferrous fum (MULTI VITAMIN ORAL)Indications :CML (chronic myelocytic leukemia) (CMS/HCC) (HCC) daily. Acti ve aspirin 81 mg enteric [...] a day with meals 60 tablet 11 04/17/19 026 Active amLODIPine (NORVASC) 5 mg tablet Take 1 tablet (5 mg total) by mouth daily May take additional 5 mg once daily for elevated BP 01/29/20 025 Discontin ued(Alter bette therapy) lisinopriL (PRINIVIL,ZESTRI [...] Department Care Team Description 04/17/2024 1:00 PM TUNNEL DRIER OPERATOR Office Visit [facility] Medical Group Cardiology [address] [place] [address] Jacob Mckenna MD LVH (left ventricular hypertrophy) (Primary Dx); Essential hypertension; Bilateral carotid artery stenosis; Leg edema, right 04/08/2024 Telephone [facility] Cardiology [address] [place] [address] Jacob Mckenna MD 04/05/2024 Telephone [facility] Cardiology [address] [place] [address] Jacob Mckenna MD Leg Swelling; nerve pain and burning; Hypertension 03/05/2024 9:00 AM TUNNEL DRIER OPERATOR Office Visit [facility] Otolaryngology [address] [place] [phone] Roxann Banerjee NP Dysfunction of left eustachian tube (Primary Dx); Mixed conductive and sensorineural hearing loss of left ear with restricted hearing of right ear; Tinnitus of left ear 03/05/2024 8:30 AM TUNNEL DRIER OPERATOR Procedure visit [facility] Otolaryngology [address] [place] [phone] Tess Hunter 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 (Primary Dx) 02/19/2024 10:30 AM TUNNEL DRIER OPERATOR Office Visit [facility] [address] [place] [phone] Jameson Cameron MD PhD Chronic myeloid leukemia (CMS/HCC) (HCC) (Primary Dx) 02/19/2024 9:45 AM TUNNEL DRIER OPERATOR Lab [facility] - Lab Collection [facility] Floor [address] [place] [address] Chronic myeloid leukemia (CMS/HCC) (HCC) 02/19/2024 9:30 AM TUNNEL DRIER OPERATOR Lab [facility] On[facility] Lab [address] [place] [address] [address] [place] [address] Chronic myeloid leukemia (CMS/HCC) (HCC) 02/06/2024 2:30 PM TUNNEL DRIER OPERATOR Office Visit [facility] Medical Group Cardiology [address] [place] [address] Carmen Mcconnell NP Essential hypertension (Primary Dx); 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) (HCC); Hospital discharge follow-up from Last 3 Months Immunizations Name Administration [...] on file Legal Sex Female 3:14 AM TUNNEL DRIER OPERATOR Gender Identity Not on file Sexual Orientation Straight 02/25/2019 6: 42 PM TUNNEL DRIER OPERATOR Obstetrics History Last Filed Vital Signs Vital Sign Reading Time Taken Comments Blood Pressure 138/80 04/17/2024 1:02 PM TUNNEL DRIER OPERATOR Pulse 70 04/17/2024 1:02 PM TUNNEL DRIER OPERATOR Temperature 36.6 C (97.8 F) 02/19/2024 10:53 AM TUNNEL DRIER OPERATOR Respiratory Rate 18 03/05/2024 8:46 AM TUNNEL DRIER OPERATOR Oxygen Saturation 98% 04/17/2024 1:02 PM TUNNEL DRIER OPERATOR Inhaled Oxygen Concentration - - Weight 61.2 kg (135 lb) 04/17/2024 1:02 PM TUNNEL DRIER OPERATOR Height 152.4 cm (5') 04/17/2024 1:02 PM TUNNEL DRIER OPERATOR Body Mass Index 26.37 04/17/2024 1:02 PM TUNNEL DRIER OPERATOR Plan of Treatment Health Maintenance Due Date [...] Diagnosis Comments EGFR Routine 02/19/2024 9:32 AM TUNNEL DRIER OPERATOR Chronic myeloid leukemia (CMS/HCC) (HCC) DIFFERENTIAL AUTO Routine 02/19/2024 9:3 2 AM TUNNEL DRIER OPERATOR Chronic myeloid leukemia (CMS/HCC) (HCC) CBC WITH AUTO DIFFERENTIAL Routine 02/19/2024 9:32 AM TUNNEL DRIER OPERATOR Chronic myeloid leukemia (CMS/HCC) (HCC) COMPREHENSIVE METABOLIC PANEL Routine 02/19/2024 9:32 AM TUNNEL DRIER OPERATOR Chronic myeloid leukemia (CMS/HCC) (HCC) LACTATE DEHYDROGENASE Routine 02/19/2024 9:32 AM TUNNEL DRIER OPERATOR Chronic myeloid leukemia (CMS/HCC) (HCC) BCR/ABL P210 QUANTITATIVE, PCR Routine 02/19/2024 9:32 AM TUNNEL DRIER OPERATOR Chronic myeloid leukemia (CMS/HCC) (HCC) from Last 3 Months Results * (ABNORMAL) BCR/ABL p210 Quantitative, PCR (02/19/2024 9:32 AM TUNNEL DRIER OPERATOR) Pathologist [facility] BCR/ABL p210 Positive(A) [facility] BCR/ABL p210 % (IS) 0.38% [facility] BCR/ABL p210 Interpretation Positive: BCR::ABL1 major (p210) transcripts were detected. [facility] BCR/ABL p210 Specimen Blood [facility] BCR/ABL p210 Result Review Final report reviewed by: Bess Guy BA, MB([facility]) Safety Belt Installer, on 02/20/2024 13:20:37 TUNNEL DRIER OPERATOR. [facility] Comment: Interpretive Data A summary of previous BCR::ABL1 major quantitative RT-PCR results for this patient performed in the [facility] Molecular Diagnostics Lab may be found as a cumulative laboratory report in the Results Review section of the Medical Record. Method: The quantitative BCR::ABL1 assay is performed on the GeneXpert (True Pivot) platform. RNA is extracted, converted to cDNA, and BCR::ABL1 and ABL1 cDNA targets are quantified by real-time PCR amplification. Results are reported as the percentage ratio of BCR::ABL1 fusion transcripts to ABL1 transcripts (BCR::ABL1/ABL1) on the International Scale (White HE, 2010). A BCR::ABL1 value of 0.1% on the International Scale represents a major molecular response in CML (Franklin S, 2008). The analytical sensitivity of this [...] of response rate between clinical trials. Blood 2008;113:6798-5170. Enedina HE, Mónica P, Sabrina P, et al. Establishment of the first World Health Organization International Genetic Reference Panel for quantification of BCR-ABL mRNA. Blood 2010;116:b363-620. GeneXpert BCR-ABL V2 Package Insert [id number], Rev B (January 2016). Xpert BCR-ABL Monitor, [id number], Rev A, July 2010. This test was performed at: [facility], [facility], [facility]#[id number], Gisele Valencia, Ph.D., [place], [address], [place] Current interpretive data was last revised 2023. Blood 02/19/2024 9:32 AM TUNNEL DRIER OPERATOR 02/19/2024 11:27 AM TUNNEL DRIER OPERATOR us Bess Perez NP LAB GENETIC TESTING Final Result PAULA [facility] Department [place] [address] [facility] * (ABNORMAL) eGFR (02/19/2024 9:32 AM TUNNEL DRIER OPERATOR) [facility] eGFR 53(L) >=60 mL/min/1. 73 m2 Comment: [...] last reviewed 2021. Blood 02/19/2024 9:32 AM TUNNEL DRIER OPERATOR 02/19/2024 10:01 AM TUNNEL DRIER OPERATOR us Bess Perez NP LAB BLOOD ORDERABLES Meka sin Result [facility] Department of Laboratories [place] [phone] * Differential, auto (02/19/2024 9:32 AM TUNNEL DRIER OPERATOR) [facility] Neutrophil abs 3.8 1.5 - 6.5 K/cumm Comment:Testing performed by : [facility], [address] [place] [phone] Lymphocyte abs 1.2 0.8 - 3.3 K/cumm PAULA LOVE Comment:Testing performed by : [facility], [address] [place] [phone] Monocyte abs 0.7 0.2 - 0.8 K/cumm PAULA LOVE Comment:Testing performed by : [facility], [address] [place] [phone] Eosinophil abs 0.1 0.0 - 0.5 K/cumm [facility] Comment:Testing performed by : [facility], [address] [place] [phone] Basophil abs 0.0 0.0 - 0.1 K/cumm [facility] Comment:Testing performed by : [facility], [address] [place] [address] Neutrophil pct 64.2 % [facility] Comment: Interpretive Data Percent cell count reference ranges are not reported, since discordance with absolute values may lead to misinterpretation of CBC data. Current Interpretive Data was last revised on 2017. Testing performed by: [facility], [address] [place] [address] Lymphocyte pct 20.2 % [facility] Comment: Interpretive Data Percent cell count reference ranges are not reported, since discordance with absolute values may lead to misinterpretation of CBC data. Current Interpretive Data was last revised on 2017. Testing performed by: [facility], [address] [place] [address] Monocyte pct 12.6 % [facility] Comment: Interpretive Data Percent cell count reference ranges are not reported, since discordance with absolute values may lead to misinterpretation of CBC data. Current Interpretive Data was last revised on 2017. Testing performed by: [facility], [address] [place] [phone] Eosinophil pct 2.3 % [facility] Comment: Interpretive Data Percent cell count reference ranges are not reported, since discordance with absolute values may lead to misinterpretation of CBC data. Current Interpretive Data was last revised on 2017. Testing performed by: [facility], [address] [place] [phone] Basophil pct 0.7 % [facility] Comment: Interpretive Data Percent cell count reference ranges are not reported, since discordance with absolute values may lead to misinterpretation of CBC data. Current Interpretive Data was last revised on 2017. Testing performed by: [facility], [address] [place] [address] Blood 02/19/2024 9:32 AM TUNNEL DRIER OPERATOR 02/19/2024 9:57 AM TUNNEL DRIER OPERATOR us Bess Perez LEAD COOK LAB BLOOD ORDERABLES Meka merrick Result [facility] Department [place] [address] * (ABNORMAL) CBC with auto differential (02/19/2024 9:32 AM TUNNEL DRIER OPERATOR) WBC 5.9 3.8 - 9.9 K/cumm Comment:Testing performed by : [facility], [address] [place] [address] Hgb 13.1 11.9 - 15.5 g/dL PAULA LOVE Comment:Testing performed by : [facility], [address] [place] [address] Hct 40.5 35.6 - 45.5 % CERYONNY BJ Comment:Testing performed by : [facility], [address] [place] [address] Plt 197 150 - 400 K/cumm PAULA LOVE Comment:Testing performed by : [facility], [address] [place] [address] MPV 6.6(L) 6.8 - 10.4 fL CERYONNY BJ Comment:Testing performed by : [facility], [address] [place] [address] RBC 4.05 3.90 - 5.20 M/cumm CERYONNY BJ Comment:Testing performed by : [facility], [address] [place] [address] MCV 99.8(H) 81.3 - 96.4 fL CERYONNY BJ Comment:Testing performed by : [facility], [address] [place] [address] MCH 32.2 27.1 - 33.3 pg CERYONNY LOVE Comment:Testing performed by : [facility], [address] [place] [phone] MCHC 32.2(L) 32.3 - 35.7 g/dL PAULA [facility] Comment:Testing performed by : [facility], [address] [place], [place] [phone] RDW CV 14.1 11.1 - 14.9 % PAULA [facility] Comment:Testing performed by : [facility], [address] [place] [phone] NRBC abs 0.00 0.00 - 0.01 K/cumm PAULA [facility] Comment:Testing performed by : [facility], [address] [place] [phone] Blood 02/19/2024 9:32 AM TUNNEL DRIER OPERATOR 02/19/2024 9:57 AM TUNNEL DRIER OPERATOR Bess Perez LEAD COOK LAB BLOOD ORDERABLES Meka l Result Performing Organization Address City/[facility]/ZIP Co de Phone Number [facility] Department of [employer] [place] [address] * Lactate dehydrogenase (LD) (02/19/2024 9:32 AM TUNNEL DRIER OPERATOR) [facility] Lactate dehydrogenase (LDH) 161 100 - 250 Units/L Blood 02/19/2024 9:32 AM TUNNEL DRIER OPERATOR 02/19/2024 10:01 AM TUNNEL DRIER OPERATOR Bess Perez LEAD COOK LAB BLOOD ORDERABLES Meka l Result Performing Organization Address [facility]/ZIP Co de Phone Number [facility] [employer] [place] [address] * Comprehensive metabolic panel (02/19/2024 9:32 AM TUNNEL DRIER OPERATOR) [facility] Sodium 142 135 - 145 mmol/L Potassium, pl 4.3 3.3 - 4.9 mmol/L [facility] Chloride 104 97 - 110 mmol/L [facility] CO2 32 22 - 32 mmol/L [facility] Anion gap 6 2 - 15 mmol/L [facility] BUN 15 6 - 25 mg/dL [facility] Creatinine 1.07 0.60 - 1.10 mg/dL [facility] Glucose 86 70 - 199 mg/dL [facility] Comment: Interpretive Data Fasting glucose [...] Calcium 9.8 8.5 - 10.3 mg/dL [facility] Bilirubin, total 0.4 0.1 - 1.2 mg/dL [facility] Protein, pl 7.3 6.5 - 8.5 g/dL [facility] Albumin 4.3 3.5 - 5.0 g/dL [facility] Alk phos 117 40 - 130 Units/L [facility] ALT 15 7 - 45 Units/L [facility] AST 22 10 - 45 Units/L [facility] Blood 02/19/2024 9:32 AM TUNNEL DRIER OPERATOR 02/19/2024 10:01 AM TUNNEL DRIER OPERATOR Bess Perez NP LAB BLOOD ORDERABLES Meka sin Result [facility] Department [place] [address] from Last 3 Months Insurance MEDICARE COMMERCIAL GENERIC MEDICARE COMMERCIAL GENERIC MEDICARE COMMERCIAL GENERIC Care Teams Wheat And Oats Flake Miller Relationship Specialty Start Date End Date Ravinder Roblero II, MD PCP - General Family Practice 06/27/22
== END 2024-05-02 12:54 | disposition home or self-care (01) ==
PROVIDERS: Visit Provider Internal Medicine Cardiovascular Disease
DX: R60.0 Localized edema (principal)
CPT/HCPCS: 93971

== ENCOUNTER 2024-08-08 14:00 | Emergency (ER) | payer MEDICARE, SELFPAY ==
[2024-08-08 14:03] VITALS: BP 187/85; PULSE 63; RESP 16; TEMP 36.4; O2SAT 99
--- OUTSIDE RECORDS SUMMARY | 2024-08-08 14:03 | XMS_ITS | Encounter Summary ---
Author Organization [facility] Address [address] [place] [address] Phone Care Team Providers Care Bus Matron Name Role Phone Osbaldo POE MD, Ravinder Leon Primary Care Provid er Encounter Details Date Type Department Care Team (Late st Contact Info) Description 06/26/2023 Telephone [facility] On[facility] [address] [facility] 7th [place] [address] [place] [id number] Bailey Buckner Social History Tobacco Use Types [...] on file Legal Sex Female 3:14 AM CHAIN TESTING MACHINE OPERATOR Gender Identity Not on file Sexual Orientation Straight 02/25/2019 6: 42 PM CHAIN TESTING MACHINE OPERATOR documented as of this encounter Plan of Treatment Not on file documented as of this encounter Visit Diagnoses Not on filedocumented in this encounter Care Teams Bus Matron Relationship Specialty Start Date End Date Ravinder Roblero II, MD PCP - General Family Practice 06/27/22 documented as of this encounter
--- OUTSIDE RECORDS SUMMARY | 2024-08-08 14:03 | XMS_ITS | Encounter Summary ---
Author Organization [facility] Healthcare Address [address] [place] [address] Care Team Providers Care Residential Program Coordinator Name Role Phone Paul Clarke MD Primary Care Provider [phone] Barrington Mahan MD Primary Care Provider [phone] Osbaldo POE MD, Ravinder Leon Primary Care Provid er Encounter Details Date Type Department Care Team (Late st Contact Info) Description 03/04/2019 Telephone [facility] [address] [place] [phone] Sukhdev Tolbert, RT Social History Tobacco [...] on file Legal Sex Female 3:14 AM SELECT BANKER Gender Identity Not on file Sexual Orientation Straight 02/25/2019 6: 42 PM SELECT BANKER documented as of this encounter Plan of Treatment Not on file documented as of this encounter Visit Diagnoses Not on filedocumented in this encounter Care Teams Residential Program Coordinator Relationship Specialty Start Date End Date Paul Clarke MD [address] [place] [address] PCP - General 02/22/17 03/17/19 Barrington Mahan MD [address] [place], [place] [phone] PCP - General Family Medicine 03/18/19 06/26/22 Ravinder Roblero II, MD [address] [place] [address] PCP - General Family Practice 06/27/22 documented as of this encounter
--- OUTSIDE RECORDS SUMMARY | 2024-08-08 14:03 | XMS_ITS | Encounter Summary ---
Author Organization [facility] [employer] [facility] Address [address] [place] [address] Phone Care Team Providers Care Filler And Trimmer Name Role Phone Paul Clarke MD Primary Care Provider [phone] Barrington Mahan MD Primary Care Provider [phone] Osbaldo POE MD, Ravinder Leon Primary Care Provid er Encounter Details Date Type Department Care Team (Latest Contact Info) Description 03/21/2017 Orders Only [facility] CONVERSION Scanning, Provider Social History Tobacco Use Types Packs/Day Years Used Date Smoking Tobacco: Never Assessed Comments Unknown Sex and Gender Information Value Date Recorded Sex Assigned at Not on file Legal Sex Female 3:14 AM RUBBER STAMP DIES INSPECTOR Gender Identity Not on file Sexual Orientation Straight 02/25/2019 6: 42 PM RUBBER STAMP DIES INSPECTOR documented as of this encounter Plan of Treatment Not on file documented as of this encounter Procedures Procedure Name Priority Date/Time Associated Diagnosis Comments VASCULAR LABORATORY REPORT 03/21/2017 7:05 PM RUBBER STAMP DIES INSPECTOR documented in this encounter Results * VASCULAR LABORATORY REPORT (03/21/2017 7:05 PM RUBBER STAMP DIES INSPECTOR) Anatomical Region Laterality Modality Ultrasound us Provider Scanning CV VASCULAR PROCEDURES Final R esult documented in this encounter Visit Diagnoses Not on filedocumented in this encounter Care Teams Filler And Trimmer Relationship Specialty Start Date End Date Paul Clarke MD [address] [place] [id number] PCP - General 02/22/17 03/17/19 Barrington Mahan MD [address] [place] [address] PCP - General Family Medicine 03/18/19 06/26/22 Ravinder Roblero II, MD [address] [place], [place] [phone] PCP - General Family Practice 06/27/22 documented as of this encounter
--- OUTSIDE RECORDS SUMMARY | 2024-08-08 14:03 | XMS_ITS | Encounter Summary ---
Author Organization [facility] Address [address] [place] [address] Phone Care Team Providers Care Performance Test Consultant Name Role Phone Paul Clarke MD Primary Care Provider Barrington Mahan MD Primary Care Provider [phone] Osbaldo POE MD, Ravinder Leon Primary Care Provid er Encounter Details Date Type Department Care Team (Latest Contact Info) Description 02/22/2017 Orders Only [facility] Scanning, Provider Social History Tobacco Use Types Packs/Day Years Used Date Smoking Tobacco: Never Assessed Comments Unknown Sex and Gender Information Value Date Recorded Sex Assigned at Not on file Legal Sex Female 3:14 AM CAD TECHNICIAN Gender Identity Not on file Sexual Orientation Straight 02/25/2019 6: 42 PM CAD TECHNICIAN documented as of this encounter Plan [...] on filedocumented in this encounter Care Teams Performance Test Consultant Relationship Specialty Start Date End Date Paul Clarke MD [address] [address] PCP - General 02/22/17 03/17/19 Barrington Mahan MD [address] [place], [place] [phone] PCP - General Family Medicine 03/18/19 06/26/22 Ravinder Roblero II, MD [address] [place], [place] [phone] PCP - General Family Practice 06/27/22 documented as of this encounter
--- OUTSIDE RECORDS SUMMARY | 2024-08-08 14:03 | XMS_ITS | Encounter Summary ---
Author Organization [facility] of [facility] Address [address] [place] [address] Phone Care Team Providers Care Tape Cutting Machine Operator Name Role Phone Paul Clarke MD Primary Care Provider Barrington Mahan MD Primary Care Provider +- [phone] Osbaldo POE MD, Ravinder Leon Primary Care Provid er Encounter Details Date Type Department Care Team (Latest Contact Info) Description 07/12/2018 Orders Only [facility] Scanning, Provider Social History Tobacco Use Types Packs/Day Years Used Date Smoking Tobacco: Former Smokeless Tobacco: Never Comments Unknown Sex and Gender Information Value Date Recorded Sex Assigned at Not on file Legal Sex Female 3:[address] ORDERLY Gender Identity Not on file Sexual Orientation Straight 02/25/2019 6: [address] ORDERLY documented as of this encounter Plan of Treatment Not on file documented as of this encounter Procedures Procedure Name Priority Date/Time Associated Diagnosis Comments SCAN - LABS 07/12/2018 documented in this encounter Results * SCAN - LABS (07/12/2018) us Provider Scanning Final Result documented in this encounter Visit Diagnoses Not on filedocumented in this encounter Care Teams Tape Cutting Machine Operator Relationship Specialty Start Date End Date Paul Clarke MD [address] [address] PCP - General 02/22/17 03/17/19 Barrington Mahan MD [address] [place] [address] PCP - General Family Medicine 03/18/19 06/26/22 Ravinder Roblero II, MD [address] [facility] [place] [id number] PCP - General Family Practice 06/27/22 documented as of this encounter
--- OUTSIDE RECORDS SUMMARY | 2024-08-08 14:03 | XMS_ITS | Clinical Summary ---
Author Organization [facility] Medical [facility] [address] [place] [id number] Care Team Providers Care Marine Engineer Cpvec Name Role Phone Osbaldo POE MD, Ravinder Edward Primary Care Provid er Allergies Active Allergy Reactions Criticality Noted Date Comments Sulfa (Sulfonamide Antibiotics) Hives Medium 10/2010 Medications multivit-mineral s/ferrous fum (MULTI VITAMIN ORAL)Indications :CML (chronic myelocytic leukemia) (HCC) daily. Acti ve aspirin 81 mg enteric coated tabletIndication s:prevention of thrombosis Take 1 tablet (81 mg total) by mouth daily 30 tablet 11 07/19/19 19 Active ascorbic acid, vitamin C, 500 mg capsuleIndicatio ns:Chronic myeloid leukemia (HCC) Take 1 capsule by mouth daily Active cholecalciferol (VITAMIN D-3) 5,000 unit tabletIndication s:Chronic myeloid leukemia (HCC) Take 1 tablet (5,000 Units total) by mouth daily Active clonazePAM (KlonoPIN) 0.5 mg tabletIndication s:Chronic myeloid leukemia (HCC) Take 1 tablet (0.5 mg total) by mouth nightly as needed for seizures 60 tablet 3 11/16/19 23 Active asciminib (SCEMBLIX) 40 mg tabletIndication s:Chronic myeloid leukemia (HCC) Take 2 tablets (80 mg total) by mouth daily Take at the same time each day on empty stomach. Avoid eating for at least 2 hours before and 1 hour after dose. Swallow whole. Store in original container. 60 tablet 11 05/29/19 25 Active atorvastatin (LIPITOR) 10 mg tablet Take 1 tablet (10 mg total) by mouth daily 90 tablet 3 06/05/19 25 026 Active lisinopriL (PRINIVIL,ZESTRI L) 40 mg tablet Take 1 tablet by mouth nightly 30 tablet 6 07/31/19 25 Active carvediloL (COREG) 12.5 mg tabletIndication s:Essential hypertension Take 1 tablet (12.5 mg total) by mouth 2 (two) times a day with meals 180 tablet 3 08/09/19 25 026 Active lisinopriL (PRINIVIL,ZESTRI L) 40 mg tablet Take 1 tablet (40 mg total) by mouth nightly 30 tablet 3 04/08/19 25 025 Discontinued carvediloL (COREG) 6.25 mg tabletIndication s:LVH (left ventricular hypertrophy),Ess ential hypertension Take 1 tablet (6.25 mg total) by mouth 2 (two) times a day with meals 60 tablet 11 04/17/19 25 025 Discontinued(Du plicate order) Active Problems Problem Noted Date Diagnosed Date Acute intractable headache 08/08/2024 Leg edema, right 04/17/2024 Tinnitus of left ear 03/05/2024 Mixed conductive and sensori neural hearing loss of left ear with restricted hearing of right ear 03/05/2024 Dysfunction of left eustachian tube 03/05/2024 Bilateral carotid artery stenosis 03/17/2020 Shortness of breath 09/11/2019 Essential hypertension 03/18/2019 LVH (left ventricular hypertrophy) 08/21/2018 Emphysema of lung 08/21/2018 Chronic myeloid leukemia 01/24/2014 Encounters Date Type Department Care Team Description 08/08/2024 1:15 PM CDT Office Visit [facility] Cardiology at [address] [place] [address] Jacob Mckenna MD Essential hypertension (Primary Dx); Essential (primary) hypertension; Bilateral carotid artery stenosis; Acute intractable headache, unspecified headache type; Pulmonary emphysema, unspecified emphysema type (HCC) 05/15/2024 1:00 PM RESEARCH STATISTICIAN Office Visit [facility] Bone Marrow Transplant [facility] Floor [address] [place] [address] Bess Perez NP Chronic myeloid leukemia (HCC) (Primary Dx) 05/15/2024 12:15 PM RESEARCH STATISTICIAN Lab [facility] - Lab Collection [address] [facility] Floor [address] [place] [address] Chronic myeloid leukemia (HCC) 05/15/2024 12:00 PM RESEARCH STATISTICIAN Lab [facility] Oncology Lab [address] [facility] Floor 6 [place] [address] Chronic myeloid leukemia (HCC) from Last 3 Months Immunizations Immunization Administration Dates Next Due Influenza, Quadrivalent, Hig [...] on file Legal Sex Female 3:14 AM RESEARCH STATISTICIAN Gender Identity Not on file Sexual Orientation Straight 02/25/2019 6: 42 PM RESEARCH STATISTICIAN Obstetrics History Last Filed Vital Signs Vital Sign Reading Time Taken Comments Blood Pressure 162/110 08/08/2024 1:03 PM CDT Pulse 69 08/08/2024 1:03 PM CDT Temperature 36.4 C (97.6 F) 05/15/2024 12:19 PM RESEARCH STATISTICIAN Respiratory Rate 18 05/15/2024 12:19 PM RESEARCH STATISTICIAN Oxygen Saturation 90% 08/08/2024 1:03 PM CDT Inhaled Oxygen Concentration - - Weight 61.7 kg (136 lb) 08/08/2024 1:03 PM CDT Height 152.4 cm (5') 08/08/2024 1:03 PM CDT Body Mass Index 26.56 08/08/2024 1:03 PM CDT Plan of Treatment Health Maintenance Due Date Last Done Comments Depression Screening 1945 Fall Risk Assessment 1945 DTaP/Tdap/Td Vaccine (1 - Tdap) 07/01/1954 Hepatitis B Screening 07/01/1961 Pneumococcal vaccine 65+ (1 of 2 - PCV) 07/01/1962 Zoster Vaccine (1 of 2) 07/01/1962 Well Visit 65+ 07/01/2008 Osteoporosis Screening-Bone Density Scan 02/20/2021 02/20/2019, 03/02/2017 Covid-19 Vaccine (5 - 2023-2 5 season) 2023 01/12/2022, 02/18/2021, 05/21/2020, Additional history exists Influenza Vaccine Completed 01/01/2024, , 01/22/2022, Additional history exists Procedures Procedure Name Priority Date/Time Associated Diagnosis Comments EGFR Routine 05/15/2024 11:59 AM RESEARCH STATISTICIAN Chronic myeloid leukemia (HCC) DIFFERENTIAL AUTO Routine 05/15/2024 11: 59 AM RESEARCH STATISTICIAN Chronic myeloid leukemia (HCC) CBC WITH AUTO DIFFERENTIAL Routine 05/15/2024 11:59 AM RESEARCH STATISTICIAN Chronic myeloid leukemia (HCC) COMPREHENSIVE METABOLIC PANEL Routine 05/15/2024 11:59 AM RESEARCH STATISTICIAN Chronic myeloid leukemia (HCC) LACTATE DEHYDROGENASE Routine 05/15/2024 11:59 AM RESEARCH STATISTICIAN Chronic myeloid leukemia (HCC) BCR/ABL P210 QUANTITATIVE, PCR Routine 05/15/2024 11:59 AM RESEARCH STATISTICIAN Chronic myeloid leukemia (HCC) from Last 3 Months Results * (ABNORMAL) BCR/ABL p210 Quantitative, PCR (05/15/2024 11:59 AM RESEARCH STATISTICIAN) [facility] BCR/ABL p210 Positive(A) [facility] BCR/ABL p210 % (IS) 0.21% [facility] BCR/ABL p210 Interpretation Positive: BCR::ABL1 major (p210) transcripts were detected. [facility] BCR/ABL p210 Specimen Blood [facility] BCR/ABL p210 Result Review Final report reviewed by: TRISTA Art, MB([facility])CM, Sash Maker, on 05/16/2024 15:50:58 RESEARCH STATISTICIAN. [facility] Comment: Interpretive Data A summary of previous BCR::ABL1 major quantitative RT-PCR results for this patient performed in the [facility] Molecular Diagnostics Lab may be found as a cumulative laboratory report in the Results Review section of the Medical Record. Method: The quantitative BCR::ABL1 assay is performed on the GeneXpert (OneMln) platform. RNA is extracted, converted to cDNA, and BCR::ABL1 and ABL1 cDNA targets are quantified by real-time PCR amplification. Results are reported as the percentage ratio of BCR::ABL1 fusion transcripts to ABL1 transcripts (BCR::ABL1/ABL1) on the International Scale (Enedina COLLADO, 2010). A BCR::ABL1 value of 0.1% on the International Scale represents a major molecular response in CML ([place] S, 2008). The analytical sensitivity of this [...] of response rate between clinical trials. Blood 2008;113:3670-8061. Enedina HE, Mónica P, Sabrina P, et al. Establishment of the first World Health Organization International Genetic Reference Panel for quantification of BCR-ABL mRNA. Blood 2010;116:v415-971. GeneXpert BCR-ABL V2 Package Insert [id number], Rev B (January 2016). Xpert BCR-ABL Monitor, [id number], Rev A, July 2010. This test was performed at: [facility], [facility], CLIA#[id number], iGsele Valencia, Ph.D., [place], [address], [place] Current interpretive data was last revised 2023. Blood 05/15/2024 11:5 9 AM RESEARCH STATISTICIAN 05/15/2024 2:30 PM RESEARCH STATISTICIAN Bess Perez NP LAB GENETIC TESTING Final Result [facility] Department [place] [address] [facility] * (ABNORMAL) eGFR (05/15/2024 11:59 AM RESEARCH STATISTICIAN) Pathologist [facility] eGFR 56(L) >=60 mL/min/1. 73 m2 Comment: Interpretive Data [...] interpretive data was last reviewed 2021. Blood 05/15/2024 11:5 9 AM RESEARCH STATISTICIAN 05/15/2024 12:26 PM RESEARCH STATISTICIAN Bess Perez MEDICAID BUSINESS ANALYST LAB BLOOD ORDERABLES Meka l Result [facility] Department [place] [address] * Differential, auto (05/15/2024 11:59 AM RESEARCH STATISTICIAN) Pathologist [facility] Neutrophil abs 3.5 1.5 - 6.5 K/cumm Comment:Testing performed by : [facility] Cancer [facility], [address] [place] [phone] Lymphocyte abs 1.3 0.8 - 3.3 K/cumm [facility] Comment:Testing performed by : [facility], [address] [place] [phone] Monocyte abs 0.6 0.2 - 0.8 K/cumm [facility] Comment:Testing performed by : [facility], [address] [place] [phone] Eosinophil abs 0.1 0.0 - 0.5 K/cumm [facility] Comment:Testing performed by : [facility], [address] [place] [phone] Basophil abs 0.0 0.0 - 0.1 K/cumm [facility] Comment:Testing performed by : [facility], [address] [place] [phone] Neutrophil pct 62.3 % [facility] Comment: Interpretive Data Percent cell count reference ranges are not reported, since discordance with absolute values may lead to misinterpretation of CBC data. Current Interpretive Data was last revised on 2017. Testing performed by: [facility], [address] [place] [phone] Lymphocyte pct 23.7 % [facility] Comment: Interpretive Data Percent cell count reference ranges are not reported, since discordance with absolute values may lead to misinterpretation of CBC data. Current Interpretive Data was last revised on 2017. Testing performed by: [facility], [address] [place] [phone] Monocyte pct 11.2 % [facility] Comment: Interpretive Data Percent cell count reference ranges are not reported, since discordance with absolute values may lead to misinterpretation of CBC data. Current Interpretive Data was last revised on 2017. Testing performed by: [facility], [address] [place] [phone] Eosinophil pct 2.3 % [facility] Comment: Interpretive Data Percent cell count reference ranges are not reported, since discordance with absolute values may lead to misinterpretation of CBC data. Current Interpretive Data was last revised on 2017. Testing performed by: [facility], [address] [place] [phone] Basophil pct 0.5 % PAULA OLVE Comment: Interpretive Data Percent cell count reference ranges are not reported, since discordance with absolute values may lead to misinterpretation of CBC data. Current Interpretive Data was last revised on 2017. Testing performed by: [facility], [address] [place] [address] Blood 05/15/2024 11:5 9 AM RESEARCH STATISTICIAN 05/15/2024 12:21 PM RESEARCH STATISTICIAN us Bess Perez MEDICAID BUSINESS ANALYST LAB BLOOD ORDERABLES Meka l Result PAULA LOVE [facility] Department [place] [address] * (ABNORMAL) CBC with auto differential (05/15/2024 11:59 AM RESEARCH STATISTICIAN) WBC 5.6 3.8 - 9.9 K/cumm Comment:Testing performed by : [facility]e [facility], [address] [place] [address] Hgb 12.8 11.9 - 15.5 g/dL PAULA LOVE Comment:Testing performed by : [facility], [address] [place] [address] Hct 38.4 35.6 - 45.5 % PAULA LOVE Comment:Testing performed by : [facility], [address] [place] [address] Plt 173 150 - 400 K/cumm PAULA LOVE Comment:Testing performed by : [facility], [address] [place] [address] MPV 6.6(L) 6.8 - 10.4 fL PAULA LOVE Comment:Testing performed by : [facility], [address] [place] [address] RBC 3.89(L) 3.90 - 5.20 M/cumm APULA LOVE Comment:Testing performed by : [facility], [address] [place] [address] MCV 98.7(H) 81.3 - 96.4 fL CERYONNY [facility] Comment:Testing performed by : [facility]e [facility], [address] [place], [place] [phone] MCH 32.8 27.1 - 33.3 pg CERYONNY [facility] Comment:Testing performed by : [facility], [address] [place] [address] MCHC 33.3 32.3 - 35.7 g/dL PAULA [facility] Comment:Testing performed by : [facility], [address] [place], [place] [phone] RDW CV 14.2 11.1 - 14.9 % PAULA [facility] Comment:Testing performed by : [facility], [address] [place], [place] [phone] NRBC abs 0.00 0.00 - 0.01 K/cumm PAULA [facility] Comment:Testing performed by : [facility], [address] [place], [place] [phone] Blood 05/15/2024 11:5 9 AM RESEARCH STATISTICIAN 05/15/2024 12:21 PM RESEARCH STATISTICIAN Bess Perez MEDICAID BUSINESS ANALYST LAB BLOOD ORDERABLES Meka l Result Performing Organization Address [facility] Co de Phone Number [facility] Department [place] [address] * Lactate dehydrogenase (LD) (05/15/2024 11:59 AM RESEARCH STATISTICIAN) Lactate dehydrogenase (LDH) 183 100 - 250 Units/L Blood 05/15/2024 11:5 9 AM RESEARCH STATISTICIAN 05/15/2024 12:26 PM RESEARCH STATISTICIAN Bess Perez MEDICAID BUSINESS ANALYST LAB BLOOD ORDERABLES Meka l Result Performing Organization Address [facility] Co de Phone Number [facility] Department [place] [address] * (ABNORMAL) Comprehensive metabolic panel (05/15/2024 11:59 AM RESEARCH STATISTICIAN) Sodium 141 135 - 145 mmol/L Potassium, pl 5.0(H) 3.3 - 4.9 mmol/L [facility] Chloride 104 97 - 110 mmol/L [facility] CO2 32 22 - 32 mmol/L [facility] Anion gap 5 2 - 15 mmol/L [facility] BUN 17 6 - 25 mg/dL [facility] Creatinine 1.02 0.60 - 1.10 mg/dL [facility] Glucose 96 70 - 199 mg/dL [facility] Comment: Interpretive Data Fasting glucose [...] interpretive data was last revised 2022. Calcium 9.9 8.5 - 10.3 mg/dL [facility] Bilirubin, total 0.6 0.1 - 1.2 mg/dL [facility] Protein, pl 7.4 6.5 - 8.5 g/dL [facility] Albumin 4.2 3.5 - 5.0 g/dL [facility] Alk phos 117 40 - 130 Units/L [facility] ALT 12 7 - 45 Units/L [facility] AST 19 10 - 45 Units/L [facility] Blood 05/15/2024 11:5 9 AM RESEARCH STATISTICIAN 05/15/2024 12:26 PM RESEARCH STATISTICIAN Bess Perez NP LAB BLOOD ORDERABLES Meka sin Result [facility] [place] [address] from Last 3 Months Insurance MEDICARE COMMERCIAL GENERIC MEDICARE COMMERCIAL GENERIC MEDICARE COMMERCIAL GENERIC Care Teams Marine Engineer Cpvec Relationship Specialty Start Date End Date Ravinder Roblero II, MD PCP - General Family Practice 06/27/22
--- OUTSIDE RECORDS SUMMARY | 2024-08-08 14:03 | XMS_ITS | Encounter Summary ---
Author Organization [facility] Healthcare Address [address] [place] [address] Care Team Providers Care Solution Engineer Name Role Phone Osbaldo POE MD, Ravinder Leon Primary Care Provid er Reason for Referral * Diagnostic Imaging (Routine) - Pending Review Specialty Diagnoses / Procedures Referred By Contac t Referred To Contact Diagnoses Essential (primary) hypertension Procedures US Renal Limited Including Duplex Doppler Bilateral Complete (C) Jacob Mckenna MD [id number] [place] [address] Phone: tel: fax: [facility] Referral ID Status Reason Start Date Expiration Date V isits Requested Visits Authorized [id number] Pending Review 08/08/2024 09/07/2025 1 1 Reason for Visit * Reason Comments Follow-up 4 mo follow up on LV H, HTN, CHAPIN Encounter Details Date Type Department Care Team (Late st Contact Info) Description 08/08/2024 1:15 PM CDT Office Visit [facility] Cardiology at [address] [place] [id number] Jacob Mckenna MD [address] [place] [address] [place] [id number] Essential hypertension (Primary Dx); Essential (primary) hypertension; Bilateral carotid artery stenosis; Acute intractable headache, unspecified headache type; Pulmonary emphysema, unspecified emphysema type (HCC) Social History Tobacco Use Types Packs/Day Years [...] on file Legal Sex Female 3:14 AM [employer]LE [employer]IVER Gender Identity Not on file Sexual Orientation Straight 02/25/2019 6: 42 PM SOLE SKIVER documented as of this encounter Last Filed Vital Signs Vital Sign Reading Time Taken Comments Blood Pressure 162/110 08/08/2024 1:03 PM CDT Pulse 69 08/08/2024 1:03 PM CDT Temperature - - Respiratory Rate - - Oxygen Saturation 90% 08/08/2024 1:03 PM CDT Inhaled Oxygen Concentration - - Weight 61.7 kg (136 lb) 08/08/2024 1:03 PM CDT Height 152.4 cm (5') 08/08/2024 1:03 PM CDT Body Mass Index 26.56 08/08/2024 1:03 PM CDT documented in this encounter Ordered Prescriptions Prescription Sig Dispense Quantity Refills Last Filled Start Date End Date carvediloL (COREG) 12.5 mg tabletIndications: Essential hypertension Take 1 tablet (12.5 mg total) by mouth 2 (two) times a day with meals 180 tablet 3 08/08/2024 08/08/2025 documented in this encounter Progress Notes * Jacob Mckenna MD - 08/08/2024 1:15 PM CDT Images from the original note were not included. [facility] DATE OF VISIT: 08/08/2024 CHIEF COMPLAINT Chief Complaint Patient presents with Follow-up 4 mo follow up on LVH, HTN, CHAPIN Shortness of breath, establish with Cardiology, chemotherapy HPI Anisa Rivera is a 79 y.o. female with no known coronary or cardiac disease. She does have some dyspnea. She is being seen today to establish with Cardiology. She is on chemotherapy agents which reportedly have cardiovascular side effects and so she is here to establish care for maintenance evaluation. Patient denies any chest pain, syncope, presyncope, paroxysmal nocturnal dyspnea, orthopnea, edema or palpitations. She does have some shortness of breath with walking up 2-3 flights of stairs while carrying objects. This is not new or different. She has had a CT scan of her chest in the pastwhich did show moderate emphysema and her sister does have alpha-1 antitrypsin deficiency. 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 She was started on lisinopril/HCTZ 10/12.5 mg daily. She has taken about 6 doses so far. She has been monitoring blood pressure at home with her most recent reading 135/84. She notices BP elevations correlate with anxiety, but between her health problems and her 's, she does not perceive her anxiety improving in the near future, so she is interested in staying on the blood pressure medication. Her oncologist has referred her to a thoracic surgeon to monitor a pulmonary nodule that has developed. Follow-up note 03/16/2020: She continues have dyspnea with exertion which is unchanged. It has beenstable for about the last 4 years but is persistent. No chest pain, syncope, presyncope, paroxysmalnocturnal dyspnea, orthopnea, edema or palpitations Follow-up note 04/19/2021: She denies any chest pain, syncope, presyncope, paroxysmal nocturnal dyspnea, orthopnea, edema or palpitations. She does have some shortness of breath with activity which is not new or different. Follow-up note 10/26/2021: She did have an episode of some left sided numbness which lasted less than 30 seconds. MRI was performed which was negative. 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 She has some intermittent nausea as well as diaphoresis which curre ntly occurs at night and not with exertion. She denies any syncope, presyncope, chest pain, paroxysmal nocturnal dyspnea orthopnea, palpitations Follow-up note 05/04/2022: She is no exertional chest pain, shortness breath, syncope, presyncope, paroxysmal nocturnal dyspnea orthopnea, edema palpitations Follow-up note 11/10/2022: Blood pressure has been elevated over the past several months. She has had a lot of stress including a fall, injury and in addition to loss of her recently. Lisinopril has been increased but home blood pressures are at best in the upper 140s. No chest pain, shortness breath, syncope, presyncope, paroxysmal nocturnal dyspnea orthopnea. Has had some edema. Did have an episode of heartburn symptoms couple of days ago which did resolve with the use some Pepcid Follow-up note 02/02/2023: She denies any chest pain, shortness breath, syncope, presyncope, paroxysmal nocturnal dyspnea, orthopnea, edema or palpitations. Home blood pressures around 130 systolic Follow-up note 08/30/2023: She has had little bit of dizziness and she thinks she is dehydrated andhas some lower blood pressures at times. She is noticed this especially her she is outside doing [employer] work. She does feel some shortness of breath whenever she was doing things like hiking in [place]. No syncope, paroxysmal nocturnal dyspnea, chest pain, palpitations or edema. 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 Several hours later she noted her blood pressure elevating again accompanied by headache so she went to [facility] in [place], given a diagnosis oftype 2 NSTEMI secondary to hypertensive emergency. Echocardiogram essentially unremarkable, but PASP 35-45 mmHg. She was started on amlodipine and advised to continue lisinopril. Since discharge she has been monitoring her blood pressure a few times a day with quite variable readings some as low as90s over 60s, some as high as 150s over 90s. When it was elevated there were a few instances she took an additional 20 mg of lisinopril. She had follow-up with PCP last week. Follow-up note 04/17/2024: She is troubled with some anxiety. She had some edema with amlodipine. Amlodipine was stopped and she was switched to carvedilol. Blood pressure did spike up but has since came back down systolic blood pressure ranging from 1 40-155 over around 90s. She denies any chest pain, shortness breath, syncope, presyncope, paroxysmal nocturnal dyspnea, orthopnea, palpitations. Does have little bit of swelling in the right leg but overall her edema did improve after stopping amlodipine Follow-up note 08/08/2024: She returns today feeling not very well. She is having a severe headache. Otherwise nonfocal and having no other symptoms better headache is pounding and her eyes are watering. She woke up with this headache. No chest pain recently shortness breath, paroxysmal nocturnal dyspnea, orthopnea, edema palpitations. MEDICAL HISTORY Past Medical History: Diagnosis Date Emphysema of lung (HCC) 2019 Hypertension Leukemia, acute myeloid (HCC) Social History Tobacco Use Smoking status: Former Smoker Packs/day: 0.50 Years: 15.00 Pack years: 7.50 Quit date: 08/28/1976 Years since quittin.6 Smokeless tobacco: Never Used Substance Use Topics Alcohol use: Never Drug use: Never Family History Problem Relation Age of Onset Heart attack Mother Family history of myocardial infarction - (Added by TW Conv) Breast cancer Mother Family history of malignant neoplasm of breast - (Added by TW Conv) Cancer Mother Heart attack Father Family history of myocardial infarction - (Added by TW Conv) Hypertension Brother Family history of hypertension - (Added by QuantiaMD Conv) Breast cancer Sister Family history of malignant neoplasm of breast - (Added by QuantiaMD Conv) MEDICATIONS Medication List Accurate as of August 08, 2024 1:19 PM. If you have any questions, ask your nurse or doctor. CONTINUE taking these medications asciminib 40 mg tablet Commonly known as: SCEMBLIX Take 2 tablets (80 mg total) by mouth daily Take at the same time each day on empty stomach. Avoid eating for at least 2 hours before and 1 hour after dose. Swallow whole. Store in original container. ascorbic acid (vitamin C) 500 mg capsule aspirin 81 mg enteric coated tablet Take 1 tablet (81 mg total) by mouth daily atorvastatin 10 mg tablet Commonly known as: LIPITOR Take 1 tablet (10 mg total) by mouth daily carvediloL 6.25 mg tablet Commonly known as: COREG Take 1 tablet (6.25 mg total) by mouth 2 (two) times a day with meals cholecalciferol 5,000 unit tablet Commonly known as: VITAMIN D-3 clonazePAM 0.5 mg tablet Commonly known as: KlonoPIN Take 1 tablet (0.5 mg total) by mouth nightly as needed for seizures lisinopriL 40 mg tablet Commonly known as: PRINIVIL,ZESTRIL Take 1 tablet by mouth nightly MULTI VITAMIN ORAL ALLERGIES Allergies Allergen Reactions Sulfa (Sulfonamide Antibiotics) Hives REVIEW OF SYSTEMS Review of Systems Constitutional: Negative for weight gain and weight loss. HENT: Negative for hearing loss. Eyes: Negative for blurred vision and visual disturbance. Cardiovascular: Positive for dyspnea on exertion. Negative for chest pain, claudication, irregular heartbeat, leg swelling, near-syncope, orthopnea, palpitations, paroxysmal nocturnal dyspnea and syncope. Respiratory: Negative for cough, hemoptysis, shortness of breath, snoring, sputum production and wheezing. Endocrine: Negative for cold intolerance, heat intolerance and polyuria. Hematologic/Lymphatic: Bruises/bleeds easily. Skin: Negative for color change and rash. Musculoskeletal: Positive for myalgias. Negative for falls, joint pain and joint swelling. Gastrointestinal: Negative for abdominal pain, heartburn, nausea and vomiting. Genitourinary: Negative for dysuria. Neurological: Negative for dizziness, focal weakness, headaches, light- headedness, numbness and weakness. Psychiatric/Behavioral: Negative for depression. The patient is not nervous/anxious. Allergic/Immunologic: Negative for environmental allergies. PHYSICAL EXAM Blood pressure (!) 162/110, pulse 69, height 152.4 cm (5'), weight 61.7 kg (136 lb), SpO2 90%. Body mass index is 26.56 kg/m??. Physical Exam Vitals reviewed. HENT: Head: Normocephalic and atraumatic. Nose: Nose normal. Eyes: General: No scleral icterus. Conjunctiva/sclera: Conjunctivae normal. Cardiovascular: Rate and Rhythm: Normal rate and regular rhythm. Pulses: Intact distal pulses. Carotid pulses are 1+ on the left side. Heart sounds: Normal heart sounds. No murmur heard. No friction rub. No gallop. Pulmonary: Effort: Pulmonary effort is normal. No respiratory distress. Breath sounds: Normal breath sounds. No wheezing or rales. Chest: Chest wall: No tenderness. Abdominal: General: Bowel sounds are normal. There is no distension. Palpations: Abdomen is soft. Tenderness: There is no abdominal tenderness. Musculoskeletal: General: Normal range of motion. Cervical back: Neck supple. Skin: General: Skin is warm and dry. Neurological: Mental Status: She is alert and oriented to person, place, and time. Psychiatric: Mood and Affect: Mood normal. LABS AND OTHER DIAGNOSTIC TESTS Lab Results Component Value Date WBC 5.6 05/15/2024 HGB 12.8 05/15/2024 HCT 38.4 05/15/2024 MCV 98.7 (H) 05/15/2024 Chemistry Component Value Date/Time SODIUM 141 05/15/2024 1159 SODIUM 143 11/29/2022 1005 POTASSIUM 5.0 (H) 05/15/2024 1159 CHLORIDE 104 05/15/2024 1159 CHLORIDE 106 11/29/2022 1005 CO2 32 05/15/2024 1159 CO2 27 11/29/2022 1005 BUNSER 17 05/15/2024 1159 BUNSER 29 (H) 11/29/2022 1005 CREATININE 1.02 05/15/2024 1159 CREATININE 1.40 (A) 06/20/2023 0849 GLUCOSE 96 05/15/2024 1159 GLUCOSE 68 (L) 11/29/2022 1005 Component Value Date/Time CALCIUM 9.9 05/15/2024 1159 CALCIUM 9.5 11/29/2022 1005 ALKPHOS 117 05/15/2024 1159 AST 19 05/15/2024 1159 ALT 12 05/15/2024 1159 BILITOT 0.6 05/15/2024 1159 Lab Results Component Value Date CHOL 126 09/15/2021 CHOL 135 08/18/2021 CHOL 162 04/05/2021 Lab Results Component Value Date HDL 52 09/15/2021 HDL 49 08/18/2021 HDL 54 04/05/2021 No results found for: LDL ] Lab Results Component Value Date LDLCALC 53 09/15/2021 Lab Results Component Value Date TRIG 104 09/15/2021 TRIG 102 08/18/2021 TRIG 126 04/05/2021 Lab Results Component Value Date CHOLHDL 2 09/15/2021 CHOLHDL 3 08/18/2021 EKG 08/21/2018: Normal sinus rhythm. In ST T. Cannot rule out septal infarction, age undetermined. Abnormal EKG Echo 07/26/2018: EF 60-65% with moderate LVH and grade 1 diastolic dysfunction. Mild TR with RVSP summer: MPI Normal stress test Carotid artery ultrasound 08/2020: <50% bilateral carotid disease Cardiac blood pooling 04/07/2021 The atria and great vessels are of normal size and configuration. The right ventricle is of normal size and contracts normally. The left ventricle is of normal size and contracts normally. The left ventricular ejection fraction is 75% (normal > 50%). ECHO 01/2024 The left ventricular systolic function is hyperdynamic. Estimated left ventricular ejection fraction is >70%. Left ventricular diastolic function is indeterminant. Wall motion appears normal in all segments. Trace to mild mitral regurgitation. Mild tricuspid regurgitation. Right ventricular systolic pressure is 35-45 mmHg suggestive of mild pulmonary hypertension. 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 b.i.d.. Bilateral renal artery ultrasound to rule out renal artery stenosis because of her hypertension. Because of her headache as well as marked hypertension, she is advised to go to the ER. I did tell her to take an extra carvedilol 6.25 mg p.o. x1 now as well as her lisinopril 40 mg x 1 now Continue atorvastatin for hyperlipidemia She is stable. Follow-up in 5 weeks or sooner as indicated Jacob Mckenna MD, [facility] documented in this encounter Plan of Treatment Scheduled Orders Name Type Priority Associated Diagnoses Orde r Schedule US Renal Limited Including Duplex Doppler Bilateral Complete (C) Imaging Schedule Routine, Read Routine (OP Routine) Essential (primary) hypertension Expected: 08/08/2024, Expires: 08/08/2025 documented as of this encounter Visit Diagnoses Diagnosis Essential hypertension- Primary Unspecified essential hypertension Essential (primary) hypertension Unspecified essential hypertension Bilateral carotid artery stenosis Occlusion and stenosis of carotid artery without mention of cerebral infarction Acute intractable headache, unspecified headache type Pulmonary emphysema, unspecified emphysema type (HCC) documented in this encounter Discontinued Medications Medication Sig Discontinue Reason Start Date End Da te carvediloL (COREG) 6.25 mg tabletIndications:LVH (left ventricular hypertrophy),Essential hypertension Take 1 tablet (6.25 mg total) by mouth 2 (two) times a day with meals Duplicate order 04/17/2024 08/08/2024 documented as of this encounter Care Teams Solution Engineer Relationship Specialty Start Date End Date Ravinder Roblero II, MD PCP - General Family Practice 06/27/22 documented as of this encounter
--- OUTSIDE RECORDS SUMMARY | 2024-08-08 14:03 | XMS_ITS | Referral Summary ---
Author Organization [facility] [address] [place] [phone] Care Team Providers Care Migratory Worker Name Role Phone Osbaldo POE MD, Ravinder Leon Primary Care Provid er Encounters Date Type Department Care Team Description 08/08/2024 1:15 PM CDT Office Visit [facility] Cardiology at [address] [place] [phone] Jacob Mckenna MD Essential hypertension (Primary Dx); Essential (primary) hypertension; Bilateral carotid artery stenosis; Acute intractable headache, unspecified headache type; Pulmonary emphysema, unspecified emphysema type (HCC) 05/15/2024 12:15 PM GUARD IMMIGRATION Lab [facility] - Lab Collection [address] [place] [id number] Chronic myeloid leukemia (HCC) 05/15/2024 1:00 PM GUARD IMMIGRATION Office Visit [facility] Transplant [address] [place] [phone] Bess Perez NP Chronic myeloid leukemia (HCC) (Primary Dx) 05/15/2024 12:00 PM GUARD IMMIGRATION Lab [facility] Oncology Lab [address] [place] [phone] Chronic myeloid leukemia (HCC) from Last 3 Months Allergies Active Allergy Reactions Criticality Noted Date Comments Sulfa (Sulfonamide Antibiotics) Hives Medium /0 10/2010 Medications multivit-mineral s/ferrous fum (MULTI VITAMIN [...] of lung 08/21/2018 Chronic myeloid leukemia 01/24/2014 Immunizations Immunization Administration Dates Next Due Influenza, [...] on file Legal Sex Female 3:14 AM GUARD IMMIGRATION Gender Identity Not on file Sexual Orientation Straight 02/25/2019 6: 42 PM GUARD IMMIGRATION Last Filed Vital Signs Vital Sign Reading Time Taken Comments Blood Pressure 162/110 08/08/2024 1:03 PM CDT Pulse 69 08/08/2024 1:03 PM CDT Temperature 36.4 C (97.6 F) 05/15/2024 12:19 PM GUARD IMMIGRATION Respiratory Rate 18 05/15/2024 12:19 PM GUARD IMMIGRATION Oxygen Saturation 90% 08/08/2024 1:03 PM CDT Inhaled Oxygen Concentration - - Weight 61.7 kg (136 lb) 08/08/2024 1:03 PM CDT Height 152.4 cm (5') 08/08/2024 1:03 PM CDT Body Mass Index 26.56 08/08/2024 1:03 PM CDT Plan of Treatment Not on file Procedures Procedure Name Priority Date/Time Associated Diagnosis Comments EGFR Routine 05/15/2024 11:59 AM GUARD IMMIGRATION Chronic myeloid leukemia (HCC) DIFFERENTIAL AUTO Routine 05/15/2024 11: 59 AM GUARD IMMIGRATION Chronic myeloid leukemia (HCC) CBC WITH AUTO DIFFERENTIAL Routine 05/15/2024 11:59 AM GUARD IMMIGRATION Chronic myeloid leukemia (HCC) COMPREHENSIVE METABOLIC PANEL Routine 05/15/2024 11:59 AM GUARD IMMIGRATION Chronic myeloid leukemia (HCC) LACTATE DEHYDROGENASE Routine 05/15/2024 11:59 AM GUARD IMMIGRATION Chronic myeloid leukemia (HCC) BCR/ABL P210 QUANTITATIVE, PCR Routine 05/15/2024 11:59 AM GUARD IMMIGRATION Chronic myeloid leukemia (HCC) from Last 3 Months Results * (ABNORMAL) BCR/ABL p210 Quantitative, PCR (05/15/2024 11:59 AM GUARD IMMIGRATION) BCR/ABL p210 Positive(A) [facility] BCR/ABL p210 % (IS) 0.21% [facility] BCR/ABL p210 Interpretation Positive: BCR::ABL1 major (p210) transcripts were detected. [facility] BCR/ABL p210 Specimen Blood [facility] BCR/ABL p210 Result Review Final report reviewed by: TRISTA Art, LILIA([facility])CM, Truck Leasing Manager, on 05/16/2024 15:50:58 GUARD IMMIGRATION. [facility] Comment: Interpretive Data A summary of previous BCR::ABL1 major quantitative RT-PCR results for this patient performed in the [facility] Molecular Diagnostics Lab may be found as a cumulative laboratory report in the Results Review section of the Medical Record. Method: The quantitative BCR::ABL1 assay is performed on the [employer] ([employer]) platform. RNA is extracted, converted to cDNA, [...] complexity clinical laboratory testing. Literature References: Be Michael, Cleveland L, Marcus N, et al. Desirable performance characteristics for BCR-ABL measurement on an international reporting scale to allow consistent interpretation of individual patient response and comparison of response rate between clinical trials. Blood 2008;113:9027-4029. Enedina COLLADO, Mónica P, Sabrina P, et al. Establishment of the first World Health Organization International Genetic Reference Panel for quantification of BCR-ABL mRNA. Blood 2010;116:i121-494. [employer] BCR-ABL V2 Package Insert [id number], Rev B (January 2016). Xpert BCR-ABL Monitor, [id number], Rev A, July 2010. This test was performed at: [facility], [facility], [facility]#[id number], Gisele Valencia, Ph.D., [place], [phone], [place] Current interpretive data was last revised 2023. Blood 05/15/2024 11:5 9 AM GUARD IMMIGRATION 05/15/2024 2:30 PM GUARD IMMIGRATION us Bess Perez NP LAB GENETIC TESTING Final Result Performing Organization Address City/State/[facility] Co tn Phone Number PAULA [facility] Department [place] [address] [facility] * (ABNORMAL) eGFR (05/15/2024 11:59 AM GUARD IMMIGRATION) eGFR 56(L) >=60 mL/min/1. 73 m2 Comment: [...] reviewed 2021. Blood 05/15/2024 11:5 9 AM GUARD IMMIGRATION 05/15/2024 12:26 PM GUARD IMMIGRATION us Bess Perez NP LAB BLOOD ORDERABLES Meka l Result [facility] Department [place] [address] * Differential, auto (05/15/2024 11:59 AM GUARD IMMIGRATION) Neutrophil abs 3.5 1.5 - 6.5 K/cumm Comment:Testing performed by : [facility], [address] [place] [phone] Lymphocyte abs 1.3 0.8 - 3.3 K/cumm CERNER [facility] Comment:Testing performed by : [facility], [address] [place] [phone] Monocyte abs 0.6 0.2 - 0.8 K/cumm [facility] Comment:Testing performed by : [facility], [address] [place] [phone] Eosinophil abs 0.1 0.0 - 0.5 K/cumm [facility] BJ Comment:Testing performed by : [facility], [address] [place] [phone] Basophil abs 0.0 0.0 - 0.1 K/cumm C[facility] BJ Comment:Testing performed by : [facility], [address] [place] [phone] Neutrophil pct 62.3 % [facility] Comment: Interpretive Data Percent cell count reference ranges are not reported, since discordance with absolute values may lead to misinterpretation of CBC data. Current Interpretive Data was last revised on 2017. Testing performed by: [facility], [address] [place] [phone] Lymphocyte pct 23.7 % [facility] Comment: Interpretive Data Percent cell count reference ranges are not reported, since discordance with absolute values may lead to misinterpretation of CBC data. Current Interpretive Data was last revised on 2017. Testing performed by: [facility], [address] [place] [phone] Monocyte pct 11.2 % [facility] Comment: Interpretive Data Percent cell count reference ranges are not reported, since discordance with absolute values may lead to misinterpretation of CBC data. Current Interpretive Data was last revised on 2017. Testing performed by: [facility], [address] [place] [phone] Eosinophil pct 2.3 % PAULA [facility] Comment: Interpretive Data Percent cell count reference ranges are not reported, since discordance with absolute values may lead to misinterpretation of CBC data. Current Interpretive Data was last revised on 2017. Testing performed by: [facility], [address] [place] [phone] Basophil pct 0.5 % [facility] Comment: Interpretive Data Percent cell count reference ranges are not reported, since discordance with absolute values may lead to misinterpretation of CBC data. Current Interpretive Data was last revised on 2017. Testing performed by: [facility], [address] [place] [address] Blood 05/15/2024 11:5 9 AM GUARD IMMIGRATION 05/15/2024 12:21 PM GUARD IMMIGRATION us Bess Perez SEAM FINISHER LAB BLOOD ORDERABLES Meka l Result PAULA [facility] Department [place] [address] * (ABNORMAL) CBC with auto differential (05/15/2024 11:59 AM GUARD IMMIGRATION) WBC 5.6 3.8 - 9.9 K/cumm Comment:Testing performed by : [facility], [address] [place] [address] Hgb 12.8 11.9 - 15.5 g/dL PAULA LOVE Comment:Testing performed by : [facility], [address] [place] [address] Hct 38.4 35.6 - 45.5 % PAULA BLAIR Comment:Testing performed by : [facility], [address] [place] [address] Plt 173 150 - 400 K/cumm PAUL[facility] LOVE Comment:Testing performed by : [facility], [address] [place] [address] MPV 6.6(L) 6.8 - 10.4 fL PAULA LOVE Comment:Testing performed by : [facility], [address] [place] [address] RBC 3.89(L) 3.90 - 5.20 M/cumm PAULA LOVE Comment:Testing performed by : [facility], [address] [place] [address] MCV 98.7(H) 81.3 - 96.4 fL PAULA LOVE Comment:Testing performed by : [facility], [address] [place], [place] [phone] MCH 32.8 27.1 - 33.3 pg PAULA LOVE Comment:Testing performed by : [facility], [address] [place] [address] MCHC 33.3 32.3 - 35.7 g/dL PAULA LOVE Comment:Testing performed by : [facility], [address] [place] [address] RDW CV 14.2 11.1 - 14.9 % PAULA [facility] Comment:Testing performed by : [facility], [address] [place] [address] NRBC abs 0.00 0.00 - 0.01 K/cumm PAULA [facility] Comment:Testing performed by : [facility], [address] [place] [address] Blood 05/15/2024 11:5 9 AM GUARD IMMIGRATION 05/15/2024 12:21 PM GUARD IMMIGRATION us Bess Perez NP LAB BLOOD ORDERABLES Meka sin Result PAULA LOVE [facility] Department [place] [address] * Lactate dehydrogenase (LD) (05/15/2024 11:59 AM GUARD IMMIGRATION) Lactate dehydrogenase (LDH) 183 100 - 250 Units/L Blood 05/15/2024 11:5 9 AM GUARD IMMIGRATION 05/15/2024 12:26 PM GUARD IMMIGRATION Bess Perez NP LAB BLOOD ORDERABLES Meka sin Result [facility] Department [place] [address] * (ABNORMAL) Comprehensive metabolic panel (05/15/2024 11:59 AM GUARD IMMIGRATION) Sodium 141 135 - 145 mmol/L Potassium, pl 5.0(H) 3.3 - 4.9 mmol/L [facility] Chloride 104 97 - 110 mmol/L [facility] CO2 32 22 - 32 mmol/L [facility] Anion gap 5 2 - 15 mmol/L [facility] BUN 17 6 - 25 mg/dL [facility] Creatinine 1.02 0.60 - 1.10 mg/dL [facility] Glucose 96 70 - 199 mg/dL [facility] Comment: Interpretive Data Fasting glucose [...] 2022. Calcium 9.9 8.5 - 10.3 mg/dL [facility] Bilirubin, total 0.6 0.1 - 1.2 mg/dL [facility] Protein, pl 7.4 6.5 - 8.5 g/dL [facility] Albumin 4.2 3.5 - 5.0 g/dL [facility] Alk phos 117 40 - 130 Units/L [facility] ALT 12 7 - 45 Units/L [facility] AST 19 10 - 45 Units/L [facility] Blood 05/15/2024 11:5 9 AM GUARD IMMIGRATION 05/15/2024 12:26 PM GUARD IMMIGRATION us Bess Perez SEAM FINISHER LAB BLOOD ORDERABLES Meka sin Result [facility] Department [place] [address] from Last 3 Months Insurance MEDICARE COMMERCIAL GENERIC MEDICARE COMMERCIAL GENERIC MEDICARE COMMERCIAL GENERIC Care Teams Migratory Worker Relationship Specialty Start Date End Date Ravinder Roblero II, MD PCP - General Family Practice 06/27/22
--- OUTSIDE RECORDS SUMMARY | 2024-08-08 14:03 | XMS_ITS ---
Author Organization [facility] [address] [place] [phone] Care Team Providers Care Recording Clerk Name Role Phone Osbaldo POE MD, Ravinder Edward Primary Care Provid er Active Problems Problem [...] of lung 08/21/2018 Chronic myeloid leukemia 01/24/2014 Current Treatment and Therapy Plans Asciminib - 28 Day Cycles - CML* Plan Start Date:07/29/2021 Plan Provider:Jameson Cameron MD PhD Linked Problems Chronic myeloid leukemia (HC C) Treatment Medications Current Day (Day 1, Cycle 3 - Planned for 10/13/2021) asciminib (SCEMBLIX) asciminib (SCEMBLIX) 40 mg tablet Past Treatment and Therapy Plans Oncology Chemotherapy Treatment Plan Name Start [...] Treatment Medications Discontinue Reason Plan Provider Cycles [id number] - [facility] - 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 Patient Preference Jameson Cameron MD PhD Treatment not started Lifetime Dose Tracking * Chemical Lifetime Dose Automatic Entry Manual Entr y DLP 2,173 mGycm 2,173 mGycm 0 mGycm
--- NOTE | 2024-08-08 14:52 | PC.NURSE ---
Patient has been in contact with Dr Mckenna's office regarding blood pressure trending down and resolved headache. They told her they were comfortable with her leaving and picking up her ordered prescriptions. Patient walked out with steady gait and with her cousin
== END 2024-08-08 14:52 | disposition left against medical advice (07) ==
LOC: ANHED 15:00
PROVIDERS: PCP Internal Medicine Cardiovascular Disease
DX: I10 Essential (primary) hypertension (principal)
CPT/HCPCS: 99199